=== PATIENT | male | born 1965 | race Caucasian/White ===

== ENCOUNTER 2025-02-06 17:06 | Inpatient (IN) | payer MEDICAID, SELFPAY ==
[2025-02-06] VITALS (34 sets, daily range): BP systolic 75–110; BP diastolic 43–71; PULSE 76–98; RESP 15–30; TEMP 36.4–36.6; O2SAT 92–98; BMI 26.6
--- NOTE | ~2025-02-06 | CT_ITS ---
CT chest abdomen pelvis w con Ordering provider: Denisa Grove APRN History: 59 years Male with . concerns . Comparison: None. Technique: CT chest with IV contrast. CT abdomen and pelvis CT abdomen and pelvis with IV and with or al contrast. Radiation reduction technique utilized. The dose-length product was 1596.23 mGy-cm. 100 mL Omnipaque 350 was given IV FINDINGS: CHEST: --VISUALIZED THORACIC INLET: Normal. --MEDIASTINUM: Aorta/coronary arteries: Mild atheromatous disease. Heart/other: The heart is not enlarged. Lymph nodes: No mediastinal or hilar adenopathy. --LUNGS: Dependent atelectatic changes. The No pulmonary nodules or masses. No infiltrates or effusio ns. No pneumothorax. --MUSCULOSKELETAL: Soft tissues: The superficial soft tissues are normal. Bones: Dextroscoliosis. Age appropriate degenerative changes of the spine. No suspicious bony lytic or sclerotic lesions. Old healed fracture in the right sixth and seventh ribs. ABDOMEN/PELVIS: --MUSCULOSKELETAL: Bones: Levoscoliosis. Age appropriate degenerative changes of the spine. No suspicious bony lytic or sclerotic lesions. Superficial soft tissues: Small right fat-containing inguinal hernia. Slightly The superficial soft t issues are normal. --UPPER ABDOMINAL ORGANS: Liver: Normal. Gallbladder: Status post cholecystectomy. Spleen: Normal. Stomach/duodenum: Normal. Pancreas: Normal. Adrenals: Normal. Kidneys: Bilateral renal cysts with the largest on the right herb counselor measuring 5.2 cm. --PELVIC ORGANS: The bladder is normal. No bladder stones. --BOWEL AND MESENTERY: Colon: No evidence of diverticulitis. No evidence of appendicitis. Small Bowel: Normal. No obstruction. Peritoneum/mesentery: No free air or free fluid. No mesenteric lymphadenopathy. --RETROPERITONEUM: Mild atheromatous disease of the abdominal aorta. No retroperitoneal lymphadenop athy. IMPRESSION: CHEST: 1. No acute cardiopulmonary pathology. ABDOMEN/PELVIS: 1. No evidence of appendicitis, diverticulitis or intestinal obstruction. 2. Bilateral renal cysts. Reviewed, dictated and finalized at location A.
--- NOTE | ~2025-02-06 | CT_ITS ---
EXAMINATION: CT cervical spine wo con DATE: 02/06/2025 18:50 INDICATION: neck pain TECHNIQUE: Computed tomography (CT) of the cervical spine was performed without intravenous contrast. Automated exposure control and iterative reconstruction technique were employed. The dose-length pro duct was 441.01 mGy-cm. COMPARISON: None. FINDINGS: Vertebral Body Alignment: Intact. Craniocervical and atlantoaxial alignment: Mild degenerative change. Alignment intact. Osseous structures/fracture: No evidence of a lytic or blastic process in the visualized spine. No e vidence of acute fracture. Cervical soft tissues: The paraspinal soft tissues planes are maintained. Minimal peripheral honeycom tamiko at the apices. Degenerative changes: No significant degenerative changes. IMPRESSION: No acute fracture or traumatic malalignment in the cervical spine. Reviewed, dictated and finalized at location K.
--- NOTE | ~2025-02-06 | CT_ITS ---
EXAMINATION: CT brain wo con DATE: 02/06/2025 18:48 INDICATION: dizziness, syncopal episode, emesis, lethargy. TECHNIQUE: Computed tomography (CT) of the head was performed without intravenous contrast. The mA wa s adjusted according to patient size. Iterative reconstruction technique was employed. The dose-lengt h product was 681.00 mGy-cm. COMPARISON: None. FINDINGS: No acute intracranial hemorrhage or extra-axial fluid collection. No hydrocephalus, mass, or herniation. No acute ischemic infarct. Unremarkable dural venous sinus attenuation. No acute osseous abnormality. Right maxillary retention cyst/polyp, the remaining aerated spaces are clear. Moderate atrophy and chronic white matter change. Atherosclerotic intracranial calcification. IMPRESSION: No acute intracranial process. Reviewed, dictated and finalized at location K.
--- NOTE | ~2025-02-06 | XR_ITS ---
XR chest 1V portable Ordering provider: Denisa Grove APRN History: 59 years Male with . crackles . Comparison: None. FINDINGS: MEDIASTINUM: The cardiac silhouette is moderately enlarged. Congestive julianne. LUNGS: No effusions or pneumothorax. Prominent bronchovascular markings in the upper and lower lobes with interstitial thickening. OTHER: No free air under the diaphragm. IMPRESSION: Cardiomegaly with highly suggestive cardiac decompensation and pulmonary edema. Pneumonitis is not ex cluded. Reviewed, dictated and finalized at location A. IMPRESSION: Cardiomegaly with highly suggestive cardiac decompensation and pulmonary edema. Pneumonitis is not excluded.
--- NOTE | 2025-02-06 17:13 | ECG_ITS ---
Test Date: 2025-02-06 17:17:10 Measurements Intervals [place] Rate: 96 P: 59 SC: 197 QRS: 28 QRSD: 99 T: 50 QT: 366 QTc: 463 Interpretive Statements SINUS RHYTHM WITH OCCASIONAL SUPRAVENTRICULAR PREMATURE COMPLEXES No previous ECG available for comparison Electronically Signed On 02-06-2025 23:29:52 CDT by Jose Maria Olivera D.O
--- NOTE | 2025-02-06 17:19 | PC.NURSE ---
Patient on phone with family member who states that if they say we're , we can go to rehab together
[2025-02-06] MEDS: SODIUM CHLORIDE 0.9% IV 2,000 ML 999 ML (17:29)
--- NOTE | 2025-02-06 17:31 | PC.NURSE ---
pt states that he was in the hospital a couple of days ago in [place], that they wanted to admit him to the hospital but he didn't stay
--- NOTE | 2025-02-06 17:36 | ED.DIZZY ---
HPI - Dizziness General Chief Complaint: Dizziness <Denisa Grove APRN - Last Filed: 02/07/25 03:33> Stated Complaint: dizzy, low blood pressure <Denisa Grove APRN - Last Filed: 02/07/25 03:33> Time Seen by Provider: 02/06/25 17:14 <Denisa Grove APRN - Last Filed: 02/07/25 03:33> History of Present Illness HPI Narrative: Patient is a 59-year-old male who presents to the ER with low blood pressure and dizziness. He reports he was driving earlier today and started ?feeling like crap so he pulled into a rest area and called 911. Patient reports he was in the ER a couple of days ago for the same symptoms but left AMA. He reports he has been outside some today but has tried to drink water so he is not sure if he is dehydrated. Pt denies any recent falls but reports after he felt dizzy today he believes he lost consciousness temporarily. He denies chest pain, shortness a breath, recent fevers. Pt reports he has a history of diabetes and GERD. He reports he last took 25 units of Lantus this morning. <Denisa Grove APRN - Last Filed: 02/07/25 03:33> Related Data Home Medications: Home Medications ?Medication ?Instructions ?Recorded ?Confirmed ?Last Taken ?Type dapagliflozin propaned 5 1 tablet PO BID 02/06/25 02/06/25 02/06/25 History mg-metformin ER 1,000 mg tablet, ext rel 24hr (Xigduo XR) insulin glargine 100 unit/mL (3 25 unit subcut BID 02/06/25 02/06/25 02/06/25 History mL) subcutaneous pen (Lantus Solostar U-100 Insulin) lisinopril 20 1 tablet PO DAILY 02/06/25 02/06/25 02/06/25 History mg-hydrochlorothiazide 25 mg tablet tamsulosin 0.4 mg capsule 0.4 mg PO HS 02/06/25 02/06/25 02/05/25 History <Denisa Grove APRN - Last Filed: 02/07/25 03:33> Allergies/Adverse Reactions: Allergies Allergy/AdvReac Type Severity Reaction Status Date / Time No Known Allergies Allergy Verified 02/06/25 18:25 <Denisa Grove APRN - Last Filed: 02/07/25 03:33> Review of Systems Review of Systems: All systems reviewed & are unremarkable except as noted in HPI and below <Denisa Grove APRN - Last Filed: 02/07/25 03:33> [facility] Family History Family History: Family History (Updated 02/06/25 @ 21:43 by Jenny Meza RN) Other Unknown family medical history <Denisa Grove APRN - Last Filed: 02/07/25 03:33> Social History Social History: Social History Smoking packs per day: 0.5 Smoking cigarettes per day: 10.0 Smoking status: Current every day smoker Tobacco type: cigarettes Alcohol intake: never Substance use: current Substance use type: marijuana Other substance usage details: every other day Do You Feel Safe in your Home?: Yes Lack of Transportation: No Lack of Food: Never True Current Housing: I Have Housing Concerned About Future Housing: No Difficulty Paying Gas/Electric Bills: No Difficulty Paying for Meds: No Currently Unemployed: No Education: High School Diploma/GED Difficulty w/ Childcare or Family Care: No Spiritual care concerns: No <Denisa Grove APRN - Last Filed: 02/07/25 03:33> Exam Narrative: GENERAL: Ill appearing, well-nourished, toxic, in no acute distress. HEAD: Normocephalic, atraumatic. NECK: Supple. No adenopathy, no masses. + pain at base of skull. RESPIRATORY: Airway patent, respirations nonlabored. L side crackles, R side clear to auscultation bilaterally. No rales, rhonchi, wheezing. CARDIOVASCULAR: Irregular rate and rhythm without murmurs, rubs, or gallops. Peripheral pulses 2+ and equal bilaterally. ABDOMINAL: Soft, nontender, nondistended, no hepatosplenomegaly. Normoactive BS. MUSCULOSKELETAL: Moves all extremities. Strength/ROM intact without gross deformities. SKIN: Warm, dry, normal color. No rashes. NEURO: A&O X3. Speech clear. Cranial nerves II-XII intact. No ataxic movements. PSYCHIATRIC: Appropriate mood and affect. Normal interaction. <Denisa Grove APRN - Last Filed: 02/07/25 03:33> Course CRISIS NURSE/PA Physician Supervision I agree with midlevel documentation; I performed the medical decision making component of this evaluation. <Daya Rankin MD - Last Filed: 02/06/25 21:21> Vital Signs Vital signs: Vital Signs Temperature 36.4 C 02/06/25 17:04 Pulse Rate 95 02/06/25 17:04 Respiratory Rate 19 02/06/25 17:04 Blood Pressure 75/48 L 02/06/25 17:04 Temperature 36.4 C 02/06/25 21:45 Pulse Rate 70 02/07/25 00:00 Respiratory Rate 20 02/06/25 21:45 Blood Pressure 86/67 L 02/06/25 21:51 Pulse Oximetry 96 02/06/25 21:49 Oxygen Delivery Nasal Cannula 02/06/25 21:49 Oxygen Flow Rate 1 02/06/25 21:49 <Denisa Gorve APRN - Last Filed: 02/07/25 03:33> Vital Signs Temperature 36.4 C 02/06/25 17:04 Pulse Rate 95 02/06/25 17:04 Respiratory Rate 19 02/06/25 17:04 Blood Pressure 75/48 L 02/06/25 17:04 Temperature 36.4 C 02/06/25 21:45 Pulse Rate 70 02/07/25 00:00 Respiratory Rate 20 02/06/25 21:45 Blood Pressure 86/67 L 02/06/25 21:51 Pulse Oximetry 96 02/06/25 21:49 Oxygen Delivery Nasal Cannula 02/06/25 21:49 Oxygen Flow Rate 1 02/06/25 21:49 <Daya Rankin MD - Last Filed: 02/06/25 21:21> MDM - Dizziness MDM Narrative Medical decision making narrative: Patient is a 59-year-old male who presents to the ER with low blood pressure and dizziness. He reports he was driving earlier today and started ?feeling like crap so he pulled into a rest area and called 911. Patient reports he was in the ER a couple of days ago for the same symptoms but left AMA. He reports he has been outside some today but has tried to drink water so he is not sure if he is dehydrated. Pt denies any recent falls but reports after he felt dizzy today he believes he lost consciousness temporarily. He denies chest pain, shortness of breath, recent fevers. Pt reports he has a history of diabetes and GERD. He reports he last took 25 units of Lantus this morning. Labs Ordered: CBC, CMP, ethanol, TSH, lactic acid, blood cultures, beta hydroxybutyrate, INR, PTT, UDS, urinalysis Imaging Ordered: CT brain, CT cervical spine Medications Ordered: 4 L normal saline IV bolus, Cefepime IV, Vancomycin IV Results: Pt's chest x-ray indicates Cardiomegaly with highly suggestive cardiac decompensation and pulmonary edema. Pneumonitis is not excluded. Diagnosis: Acute kidney injury, dehydration CRITICAL CARE ADDENDUM: Indication: hypotension, fluid resuscitation Time type: intermittent I provided a total of 45 minutes of critical care excluding separately billable procedures. This includes time w/ EMS, initial bedside evaluation, reviewing old records, review of testing done while under my care, discussion w/ the family, nurses, software security consultant and guiding the patient?s care while in the emergency department. Approximate time distribution: 5 minutes ? Initial evaluation, d/w involved parties, attempting to gather old records. 10 minutes ? Documenting medical record 10 minutes ? Review of results (EKGs, labs, imaging) 10 minutes ? Serial repeat bedside evaluation 10 minutes ? Discussing case with multiple providers Please see main chart for details. Excludes separately billable procedures. Patient Education/Shared MDM: Results of lab work and imaging shared with patient. His blood pressure is more stable following 4 L IV normal saline. It was advised patient be admitted to the hospital further evaluation and treatment. Patient verbalizes understanding and is in agreement with plan. 1930- Spoke with Dr. Clifton, the hospitalist, who was in agreement with plan for admission. He will be admitted to the med/surg floor on telemetry. <Denisa Grove APRN - Last Filed: 02/07/25 03:33> Differential Diagnosis Differential diagnosis: Likely benign paroxysmal positional vertigo, orthostatic hypotension and other (Dehydration, sepsis, pneumonia,) <Denisa Grove APRN - Last Filed: 02/07/25 03:33> Lab Data Attestation: I reviewed the patient's lab results. <Denisa Grove, GLOBAL TRANSPORTATION MANAGER - Last Filed: 02/07/25 03:33> Result diagrams: 02/06/25 17:42 02/06/25 17:41 <Denisa Grove, GLOBAL TRANSPORTATION MANAGER - Last Filed: 02/07/25 03:33> Labs: Lab Results 02/06/25 02/06/25 02/06/25 Range/Units 17:39 17:41 17:42 WBC 7.8 (4.5-10.0) K/mm3 RBC 5.26 (4.6-6.20) M/mm3 Hgb 15.2 (14.0-18.0) g/dL Hct 46.2 (42.0-52.0) % MCV 87.8 (80-100) fl MCH 28.9 (26-34) pg MCHC 32.9 (32-36) g/dl RDW 14.5 (11.5-14.5) % Plt Count 218 (150-375) k/mm3 MPV 9.8 (7.4-10.4) fl Immature Gran % (Auto) 0.4 (0-0.5) % Neut % (Auto) 64.5 (45.5-73.1) % Lymph % (Auto) 22.2 (18.3-44.2) % [place] % (Auto) 11.5 H (2.6-8.5) % Eos % (Auto) 0.8 (0-4.4) % Baso % (Auto) 0.6 (0.2-1.2) % Lymph # (Auto) 1.73 (0.9-3.2) K/mm3 [place] # (Auto) 0.9 H (0.1-0.6) K/mm3 Eos # (Auto) 0.1 (0-0.3) K/mm3 Baso # (Auto) 0.1 (0.0-0.1) K/mm3 Abs Immat Gran (auto) 0.03 (0.00-0.031) K/mm3 Absolute Neuts (auto) 5.0 (1.3-6.7) K/mm3 Absolute Nucleated RBC 0.000 (0.0-0.012) K/mm3 Nucleated RBC % 0.0 (0.0-0.2) % PT 14.5 (11.1-14.7) Seconds INR 1.1 APTT 29.8 (22.3-36.8) Seconds Sodium 135 L (137-145) mmol/L Potassium 3.7 (3.4-5.0) mmol/L Chloride 103 (98-107) mmol/L Carbon Dioxide 21 L (22-30) mmol/L Anion Gap 11 (4-12) mmol/L BUN 28 H (9-20) mg/dL Creatinine 2.16 H (0.7-1.3) mg/dL Estim Creat Clear Calc 45 ml/min Estimated GFR 32 L (59 - ) Glucose 125 H (65-110) mg/dL POC Capillary Glucose 136 H (65-105) mg/dl Lactic Acid 2.0 (0.7-2.0) mmol/L Calcium 8.8 (8.4-10.2) mg/dL Total Bilirubin 1.2 (0.2-1.3) mg/dL AST 157 H (17-59) U/L ALT 219 H (6-50) U/L Alkaline Phosphatase 112 (38-126) U/L Total Creatine Kinase 309 H (55-170) U/L C-Reactive Protein < 0.5 (<1.0) mg/dL Total Protein 7.4 (6.3-8.2) g/dL Albumin 4.2 (3.5-5.1) g/dL Beta-Hydroxybutyrate/Acetoacetate 0.27 (0.02-0.27) mmol/L TSH (Reflex) 0.579 (0.465-4.68) uIU/mL Urine Color (Yellow) Urine Appearance (Clear) Urine pH (5.0-9.0) Ur Specific Maxwell (1.001-1.035) Urine Protein (Negative) mg/dL Urine Glucose (UA) (Negative) mg/dL Urine Ketones (Negative) mg/dL Ur Blood (Man) (Negative) Urine Nitrate (Negative) Urine Bilirubin (Negative) Urine Urobilinogen (<2.0) mg/dL Leukocyte Esterase Rfl (Negative) MANJULA/UL Urine RBC (0-2) /hpf Urine WBC (0-3) /hpf Ur Squamous Epith Cells (Few) /hpf Urine Bacteria /hpf Urine Casts Hyaline Casts (None) /lpf Urine Opiates Screen (Negative) Urine Methadone Screen (Negative) Ur Barbiturates Screen (Negative) Ur Phencyclidine Scrn (Negative) Ur Amphetamine Screen (Negative) U Benzodiazepines Scrn (Negative) Urine Cocaine Screen (Negative) U Cannabinoids Screen (Negative) Ethyl Alcohol < 10 (<10) mg/dL 02/06/25 Range/Units 18:27 WBC (4.5-10.0) K/mm3 RBC (4.6-6.20) M/mm3 Hgb (14.0-18.0) g/dL Hct (42.0-52.0) % MCV (80-100) fl MCH (26-34) pg MCHC (32-36) g/dl RDW (11.5-14.5) % Plt Count (150-375) k/mm3 MPV (7.4-10.4) fl Immature Gran % (Auto) (0-0.5) % Neut % (Auto) (45.5-73.1) % Lymph % (Auto) (18.3-44.2) % [place] % (Auto) (2.6-8.5) % Eos % (Auto) (0-4.4) % Baso % (Auto) (0.2-1.2) % Lymph # (Auto) (0.9-3.2) K/mm3 [place] # (Auto) (0.1-0.6) K/mm3 Eos # (Auto) (0-0.3) K/mm3 Baso # (Auto) (0.0-0.1) K/mm3 Abs Immat Gran (auto) (0.00-0.031) K/mm3 Absolute Neuts (auto) (1.3-6.7) K/mm3 Absolute Nucleated RBC (0.0-0.012) K/mm3 Nucleated RBC % (0.0-0.2) % PT (11.1-14.7) Seconds INR APTT (22.3-36.8) Seconds Sodium (137-145) mmol/L Potassium (3.4-5.0) mmol/L Chloride (98-107) mmol/L Carbon Dioxide (22-30) mmol/L Anion Gap (4-12) mmol/L BUN (9-20) mg/dL Creatinine (0.7-1.3) mg/dL Estim Creat Clear Calc ml/min Estimated GFR (59 - ) Glucose (65-110) mg/dL POC Capillary Glucose (65-105) mg/dl Lactic Acid (0.7-2.0) mmol/L Calcium (8.4-10.2) mg/dL Total Bilirubin (0.2-1.3) mg/dL AST (17-59) U/L ALT (6-50) U/L Alkaline Phosphatase (38-126) U/L Total Creatine Kinase (55-170) U/L C-Reactive Protein (<1.0) mg/dL Total Protein (6.3-8.2) g/dL Albumin (3.5-5.1) g/dL Beta-Hydroxybutyrate/Acetoacetate (0.02-0.27) mmol/L TSH (Reflex) (0.465-4.68) uIU/mL Urine Color Yellow (Yellow) Urine Appearance Clear (Clear) Urine pH 6.0 (5.0-9.0) Ur Specific [place] 1.014 (1.001-1.035) Urine Protein Trace (Negative) mg/dL Urine Glucose (UA) 2+ H (Negative) mg/dL Urine Ketones Negative (Negative) mg/dL Ur Blood (Man) Negative (Negative) Urine Nitrate Negative (Negative) Urine Bilirubin Negative (Negative) Urine Urobilinogen 1.0 (<2.0) mg/dL Leukocyte Esterase Rfl Negative (Negative) MANJULA/UL Urine RBC 0-2 (0-2) /hpf Urine WBC 0-5 (0-3) /hpf Ur Squamous Epith Cells None seen (Few) /hpf Urine Bacteria None seen /hpf Urine Casts >20 Hyaline Casts Present (None) /lpf Urine Opiates Screen Negative (Negative) Urine Methadone Screen Negative (Negative) Ur Barbiturates Screen Negative (Negative) Ur Phencyclidine Scrn Negative (Negative) Ur Amphetamine Screen Positive A (Negative) U Benzodiazepines Scrn Negative (Negative) Urine Cocaine Screen Negative (Negative) U Cannabinoids Screen Positive A (Negative) Ethyl Alcohol (<10) mg/dL <Denisa Grove, GLOBAL TRANSPORTATION MANAGER - Last Filed: 02/07/25 03:33> Lab Results 02/06/25 02/06/2525 Range/Units 17:39 17:41 17:42 WBC 7.8 (4.5-10.0) K/mm3 RBC 5.26 (4.6-6.20) M/mm3 Hgb 15.2 (14.0-18.0) g/dL Hct 46.2 (42.0-52.0) % MCV 87.8 (80-100) fl MCH 28.9 (26-34) pg MCHC 32.9 (32-36) g/dl RDW 14.5 (11.5-14.5) % Plt Count 218 (150-375) k/mm3 MPV 9.8 (7.4-10.4) fl Immature Gran % (Auto) 0.4 (0-0.5) % Neut % (Auto) 64.5 (45.5-73.1) % Lymph % (Auto) 22.2 (18.3-44.2) % [place] % (Auto) 11.5 H (2.6-8.5) % Eos % (Auto) 0.8 (0-4.4) % Baso % (Auto) 0.6 (0.2-1.2) % Lymph # (Auto) 1.73 (0.9-3.2) K/mm3 [place] # (Auto) 0.9 H (0.1-0.6) K/mm3 Eos # (Auto) 0.1 (0-0.3) K/mm3 Baso # (Auto) 0.1 (0.0-0.1) K/mm3 Abs Immat Gran (auto) 0.03 (0.00-0.031) K/mm3 Absolute Neuts (auto) 5.0 (1.3-6.7) K/mm3 Absolute Nucleated RBC 0.000 (0.0-0.012) K/mm3 Nucleated RBC % 0.0 (0.0-0.2) % PT 14.5 (11.1-14.7) Seconds INR 1.1 APTT 29.8 (22.3-36.8) Seconds Sodium 135 L (137-145) mmol/L Potassium 3.7 (3.4-5.0) mmol/L Chloride 103 (98-107) mmol/L Carbon Dioxide 21 L (22-30) mmol/L Anion Gap 11 (4-12) mmol/L BUN 28 H (9-20) mg/dL Creatinine 2.16 H (0.7-1.3) mg/dL Estim Creat Clear Calc 45 ml/min Estimated GFR 32 L (59 - ) Glucose 125 H (65-110) mg/dL POC Capillary Glucose 136 H (65-105) mg/dl Lactic Acid 2.0 (0.7-2.0) mmol/L Calcium 8.8 (8.4-10.2) mg/dL Total Bilirubin 1.2 (0.2-1.3) mg/dL AST 157 H (17-59) U/L ALT 219 H (6-50) U/L Alkaline Phosphatase 112 (38-126) U/L Total Creatine Kinase 309 H (55-170) U/L C-Reactive Protein < 0.5 (<1.0) mg/dL Total Protein 7.4 (6.3-8.2) g/dL Albumin 4.2 (3.5-5.1) g/dL Beta-Hydroxybutyrate/Acetoacetate 0.27 (0.02-0.27) mmol/L TSH (Reflex) 0.579 (0.465-4.68) uIU/mL Urine Color (Yellow) Urine Appearance (Clear) Urine pH (5.0-9.0) Ur Specific [place] (1.001-1.035) Urine Protein (Negative) mg/dL Urine Glucose (UA) (Negative) mg/dL Urine Ketones (Negative) mg/dL Ur Blood (Man) (Negative) Urine Nitrate (Negative) Urine Bilirubin (Negative) Urine Urobilinogen (<2.0) mg/dL Leukocyte Esterase Rfl (Negative) MANJULA/UL Urine RBC (0-2) /hpf Urine WBC (0-3) /hpf Ur Squamous Epith Cells (Few) /hpf Urine Bacteria /hpf Urine Casts Hyaline Casts (None) /lpf Urine Opiates Screen (Negative) Urine Methadone Screen (Negative) Ur Barbiturates Screen (Negative) Ur Phencyclidine Scrn (Negative) Ur Amphetamine Screen (Negative) U Benzodiazepines Scrn (Negative) Urine Cocaine Screen (Negative) U Cannabinoids Screen (Negative) Ethyl Alcohol < 10 (<10) mg/dL 02/06/25 Range/Units 18:27 WBC (4.5-10.0) K/mm3 RBC (4.6-6.20) M/mm3 Hgb (14.0-18.0) g/dL Hct (42.0-52.0) % MCV (80-100) fl MCH (26-34) pg MCHC (32-36) g/dl RDW (11.5-14.5) % Plt Count (150-375) k/mm3 MPV (7.4-10.4) fl Immature Gran % (Auto) (0-0.5) % Neut % (Auto) (45.5-73.1) % Lymph % (Auto) (18.3-44.2) % [place] % (Auto) (2.6-8.5) % Eos % (Auto) (0-4.4) % Baso % (Auto) (0.2-1.2) % Lymph # (Auto) (0.9-3.2) K/mm3 [place] # (Auto) (0.1-0.6) K/mm3 Eos # (Auto) (0-0.3) K/mm3 Baso # (Auto) (0.0-0.1) K/mm3 Abs Immat Gran (auto) (0.00-0.031) K/mm3 Absolute Neuts (auto) (1.3-6.7) K/mm3 Absolute Nucleated RBC (0.0-0.012) K/mm3 Nucleated RBC % (0.0-0.2) % PT (11.1-14.7) Seconds INR APTT (22.3-36.8) Seconds Sodium (137-145) mmol/L Potassium (3.4-5.0) mmol/L Chloride (98-107) mmol/L Carbon Dioxide (22-30) mmol/L Anion Gap (4-12) mmol/L BUN (9-20) mg/dL Creatinine (0.7-1.3) mg/dL Estim Creat Clear Calc ml/min Estimated GFR (59 - ) Glucose (65-110) mg/dL POC Capillary Glucose (65-105) mg/dl Lactic Acid (0.7-2.0) mmol/L Calcium (8.4-10.2) mg/dL Total Bilirubin (0.2-1.3) mg/dL AST (17-59) U/L ALT (6-50) U/L Alkaline Phosphatase (38-126) U/L Total Creatine Kinase (55-170) U/L C-Reactive Protein (<1.0) mg/dL Total Protein (6.3-8.2) g/dL Albumin (3.5-5.1) g/dL Beta-Hydroxybutyrate/Acetoacetate (0.02-0.27) mmol/L TSH (Reflex) (0.465-4.68) uIU/mL Urine Color Yellow (Yellow) Urine Appearance Clear (Clear) Urine pH 6.0 (5.0-9.0) Ur Specific Maxwell 1.014 (1.001-1.035) Urine Protein Trace (Negative) mg/dL Urine Glucose (UA) 2+ H (Negative) mg/dL Urine Ketones Negative (Negative) mg/dL Ur Blood (Man) Negative (Negative) Urine Nitrate Negative (Negative) Urine Bilirubin Negative (Negative) Urine Urobilinogen 1.0 (<2.0) mg/dL Leukocyte Esterase Rfl Negative (Negative) MANJULA/UL Urine RBC 0-2 (0-2) /hpf Urine WBC 0-5 (0-3) /hpf Ur Squamous Epith Cells None seen (Few) /hpf Urine Bacteria None seen /hpf Urine Casts >20 Hyaline Casts Present (None) /lpf Urine Opiates Screen Negative (Negative) Urine Methadone Screen Negative (Negative) Ur Barbiturates Screen Negative (Negative) Ur Phencyclidine Scrn Negative (Negative) Ur Amphetamine Screen Positive A (Negative) U Benzodiazepines Scrn Negative (Negative) Urine Cocaine Screen Negative (Negative) U Cannabinoids Screen Positive A (Negative) Ethyl Alcohol (<10) mg/dL <Daya Rankin MD - Last Filed: 02/06/25 21:21> Critical Care Time Critical Care Time Critical Care Time: Yes <Daya Rankin MD - Last Filed: 02/06/25 21:21> Total Critical Care Time: 45 <Denisa Grove APRN - Last Filed: 02/07/25 03:33> 31 <Daya Rankin MD - Last Filed: 02/06/25 21:21> Discharge Plan Discharge Clinical Impression: RAUL (acute kidney injury), Abnormal LFTs, Hypotension <Denisa Grove APRN - Last Filed: 02/07/25 03:33> Patient Disposition: Still a Patient <Denisa Grove APRN - Last Filed: 02/07/25 03:33> Condition: Serious <Denisa Grove APRN - Last Filed: 02/07/25 03:33>
--- NOTE | 2025-02-06 17:49 | ECG_ITS ---
Test Date: 2025-02-06 17:53:48 Measurements Intervals [place] Rate: 86 P: -72 TN: 137 QRS: 23 QRSD: 105 T: 19 QT: 407 QTc: 489 Interpretive Statements SINUS RHYTHM WITH SUPRAVENTRICULAR PREMATURE COMPLEXES Electronically Signed On 02-06-2025 23:30:52 CDT by Jose Maria Olivera D.O
[2025-02-06 17:50] LABS: Hematocrit 46.2 % (42.0-52.0); Hemoglobin 15.2 g/dL (14.0-18.0); Immature Granulocyte Percent A 0.4 % (0-0.5); Lymphocytes Absolute Auto 1.73 K/mm3 (0.9-3.2); Mean Corpuscular HGB Conc 32.9 g/dl (32-36); Mean Corpuscular Hemoglobin 28.9 pg (26-34); Mean Corpuscular Volume 87.8 fl (80-100); Nucleated Red Blood Cells Absolute Auto 0.000 K/mm3 (0.0-0.012); Nucleated Red Blood Cells Perc 0.0 % (0.0-0.2); Platelet Count Result 218 k/mm3 (150-375); Red Blood Count 5.26 M/mm3 (4.6-6.20); White Blood Count 7.8 K/mm3 (4.5-10.0)
[2025-02-06] MEDS: SODIUM CHLORIDE 0.9% IV 1,000 ML 999 ML IV CONT (18:03)
[2025-02-06 18:04] LABS: Alanine Aminotransferase 219 U/L (6-50); Albumin Level 4.2 g/dL (3.5-5.1); Alkaline Phosphatase 112 U/L (38-126); Anion Gap 11 mmol/L (4-12); Aspartate Amino Transferase 157 U/L (17-59); Bilirubin,Total 1.2 mg/dL (0.2-1.3); Blood Urea Nitrogen 28 mg/dL (9-20); Calcium 8.8 mg/dL (8.4-10.2); Carbon Dioxide 21 mmol/L (22-30); Chloride 103 mmol/L (98-107); Estimated CRCL calculation 45 ml/min; Estimated Glomerular Filt Rate 32; Glucose 125 mg/dL (65-110); Potassium 3.7 mmol/L (3.4-5.0); Sodium 135 mmol/L (137-145); Total Protein 7.4 g/dL (6.3-8.2)
--- NOTE | 2025-02-06 18:05 | PC.NURSE ---
patient had an episode of desturation, spo2 dipped to 68% on room air with a good pleth, patient rebounded to 97% himself. nasal cannula and NRB facemask placed at bedside at this time
[2025-02-06 18:11] LABS: Beta-Hydroxybutyrate/Acetoace. 0.27 mmol/L (0.02-0.27)
[2025-02-06 18:14] LABS: CRP < 0.5 mg/dL (<1.0)
[2025-02-06 18:18] LABS: INR 1.1; Prothrombin Time 14.5 Seconds (11.1-14.7)
[2025-02-06 18:19] LABS: Partial Thromboplastin Time 29.8 Seconds (22.3-36.8)
[2025-02-06 18:31] LABS: Creatine Kinase 309 U/L (55-170)
[2025-02-06] MEDS: CEFEPIME 2 GM in SODIUM CHLORIDE 0.9% IV 50 ML 100 ML IVPB (18:37)
[2025-02-06 18:44] LABS: Thyroid Stimulating Hormone Reflex 0.579 uIU/mL (0.465-4.68)
[2025-02-06 19:03] LABS: Add Urine Microscopic? YES; Appearance Urine Clear (Clear); Glucose Urine UA 2+ mg/dL (Negative); Leukocyte Esterase Ur Negative LEU/UL (Negative); Nitrate Urine Negative (Negative); Non Pathogenic Casts >20; Specific Grav Ur 1.014 (1.001-1.035)
--- OUTSIDE RECORDS SUMMARY | 2025-02-06 19:07 | XMS_ITS | Patient Health Record ---
Author Organization [facility] Address [address] [place] [address] Care Team Providers Care Child Care Leader Name Role Phone Tavares Martel Unavailable Unavailable Reason For Referral No Information Plan Of Treatment No Information Insurance Providers Payer Name Payer Address Payer Phone Subscriber Number Group Number Insured Name Patient Relationship to Insured Coverage Start Date Coverage End Date [facility] [address] [address] [place] [address] [phone] [id number] GISELLE HODGE Self - patient is the insured
--- OUTSIDE RECORDS SUMMARY | 2025-02-06 19:07 | XMS_ITS | Clinical Summary ---
Author Organization [facility] and Pending sale to [facility] Address [address] [address] Care Team Providers Care Special Loan Officer Name Role Phone Erika Ahumada NP Primary Care Provider [phone] Allergies Active Allergy Reactions Criticality Noted Date Comments Ketorolac ABDOMINAL CRAMPING Medium 06/03/2024 Medications * This document contains information received from the source organization and may not represent a complete record from that organization. blood sugar diagnostic strip (TRUE METRIX GLUCOSE TEST STRIP) for type 2 diabetes mellitus. TEST BLOOD SUGARS 1 TIME A DAY 100 strip 4 05/13/20 23 Active Blood-Glucose Meter for testing of blood glucose. use as directed 1 each 04/03/20 24 Active blood sugar diagnostic strip Take 1 strip as instructed daily for type 2 diabetes mellitus, glucose monitoring. 100 strip 5 04/03/20 24 Active lancets Take 1 each as instructed daily for type 2 diabetes mellitus, glucose monitoring. 100 each 5 04/03/20 24 Active sildenafiL (VIAGRA) 50 mg tablet Take 1 tablet by mouth once as needed for Erectile Dysfunction. Take one hour prior to intercourse. 30 tablet 2 04/03/20 24 Active lisinopriL-hyd roCHLOROthiazi de (ZESTORETIC) 20-25 mg per tablet Take 1 tablet by mouth daily for hypertension. 90 tablet 4 10/12/19 25 Active omeprazole (PRILOSEC) 40 mg capsule Take 1 capsule by mouth daily for gastroesophageal reflux disease. 90 capsule 11/15/19 25 Active insulin syringe 0.3 mL 31 gauge x 5/16 syringe Use to inject insulin just under the skin at bedtime 09/08/19 25 Active tamsulosin (FLOMAX) 0.4 mg 24 hr capsule Take 1 capsule by mouth daily for benign prostatic hyperplasia with lower urinary tract sx. 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 Apply 2 times daily to affected areas 45 g 3 11/30/19 25 Active colchicine (COLCRYS) 0.6 mg tablet for leukocytoclasic vasculitis. Take one pill daily for 1 week. Then increase to one pill twice a day for 1 week. Then increase to one pill three times a day thereafter. 90 tablet 3 11/30/19 25 Active insulin glargine (LANTUS SOLOSTAR) 100 unit/mL (3 mL) pen injection Inject 25 Units into the skin 2 times daily for type 2 diabetes mellitus. 15 mL 4 12/08/19 25 Active insulin lispro (HUMALOG KWIKPEN) 100 unit/mL pen injection for type 2 diabetes mellitus. TAKE 10-12 UNITS THREE TIMES DAILY BEFORE MEALS 15 mL 4 12/08/19 25 Active dapaglifloz propaned-metfo rmin (XIGDUO XR) 5-1,000 mg TBph Take 1 tablet by mouth 2 times daily for type 2 diabetes mellitus. 180 tablet 4 12/08/19 25 Active amoxicillin (AMOXIL) 500 mg capsule Take 1 capsule by mouth every 8 hours for 7 days for dental infection. Take until all capsules are gone. 21 capsule 01/23/20 25 025 Active Problems Problem Noted Date Diagnosed Date Chronic hepatitis C without hepatic coma 025 Assessment & Plan (11/28/2024 4:02 PM MDT): Pt here for initial consult on HCV treatment. First told had HCV 15 years ago. Believes it was from a tattoo that was done in about 1988, non sterile. Denies blood transfusions of IVDU. PMHx: DM, HTN Meds: see list, no supplemets or herbals Fhx: no liver cancer Social hx: 1/2 PPD smoker for 30 years. No alcohol drinker. Hx cocaine use years ago, 30 years ago last used. Has stable housing. 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 Has symptoms of dizziness. Gets nauseous at times, especially in AM. Feels stomach is getting bigger. Has rash on extremities and chest. Photos in chart. No swelling in legs. No jaundice or icterus. No changes in urination color or BM color. Last VL in 09/2024 was 41M copies. Plan to obtain additional labs as well as abdominal US. Once results are back, can consider starting SHALOM. Will need to check for DDIs since pt is on many other medications. Assessment & Plan (11/26/2024 12:12 PM MDT): No cirrhosis, decompensation on exam or CT. Rescheduled with Dr. De Guzman later this week Pleural effusion on right 08/22/2024 Hyperlipidemia 04/03/2024 Overview (04/03/2024): Not taking a statin Lab Results Component Value Date Cholesterol 169 07/01/2023 Non HDL 122 07/01/2023 Triglycerides 122 07/01/2023 LDL 100 (H) 07/01/2023 The 10-year ASCVD risk score (Chandler NICE, et al., 2019) is: 26.4% (04/03/24) Plan Discussed statin/discussed CVD risk Will recheck lipid panel Assessment & Plan (04/03/2024 7:41 AM MDT): Not taking a statin Lab Results Component Value Date Cholesterol 169 07/01/2023 Non HDL 122 07/01/2023 Triglycerides 122 07/01/2023 LDL 100 (H) 07/01/2023 The 10-year ASCVD risk score (Chandler NICE, et al., 2019) is: 26.4% (04/03/24) Plan Discussed statin/discussed CVD risk Will recheck lipid panel Other male erectile dysfunction 07/01/2023 Assessment & Plan (07/22/2023 9:21 AM MST): Normal testosterone Trial sildenafil Side effects, risks and benefits reviewed Assessment & Plan (07/01/2023 2:05 PM MST): Testosterone pending. Discussed treatment pending results Hypertension, essential 05/13/2023 Overview (10/11/2024): Medication: Lisinopril 10 mg Low salt diet BP goal < 130/80 BP Readings: BP Readings from Last 3 Encounters: 08/22/24 : 137/88 07/14/24 : 165/102 07/04/24 : 132/100 04/03/24 : 150/100 03/17/24 : 145/101 07/11/23 : 140/94 Plan stop Lisinopril to 20 mg Start Lisinopril-HCTZ 20-12.5 mg daily Reviewed low salt diet, healthy weight, physical activity and smoking cessation Follow up in 1 month Assessment & Plan (10/11/2024 10:56 AM MDT): Uncontrolled here and on home checks, will increase HCZT to 25, f/u next month. If still elevated, consdier 3rd agent or adding add'l 20mg lisinopril. Assessment & Plan (08/22/2024 9:35 AM RUST): Medication: Lisinopril 10 mg Low salt diet BP goal < 130/80 BP Readings: BP Readings from Last 3 Encounters: 08/22/24 : 137/88 07/14/24 : 165/102 07/04/24 : 132/100 04/03/24 : 150/100 03/17/24 : 145/101 07/11/23 : 140/94 Plan stop Lisinopril to 20 mg Start Lisinopril-HCTZ 20-12.5 mg daily Reviewed low salt diet, healthy weight, physical activity and smoking cessation Follow up in 1 month Assessment & Plan (04/03/2024 7:43 AM MDT): Medication: Lisinopril 10 mg Low salt diet BP goal < 130/80 BP Readings: 04/03/24 : 150/100 Repeat 03/17/24 : 145/101 07/11/23 : 140/94 Plan Increase Lisinopril to 20 mg Reviewed importance of BP control Reviewed low salt diet, healthy weight, physical activity and smoking cessation Monitoring labs orders BP monitoring Kit ordered Handouts provided Follow up in 1 month Assessment & Plan (07/01/2023 2:07 PM MST): Well controlled, no change Assessment & Plan (05/13/2023 8:43 AM MDT): Elevated today due to lack of meds. Restart and maritza at fup Return for fasting labs Benign prostatic hyperplasia with lower urinary tract symptoms 05/13/2023 Assessment & Plan (11/26/2024 12:16 PM MDT): Refill tamsulosin Assessment & Plan (05/13/2023 8:43 AM MDT): Stable sx. PSA ordered with labs Gastroesophageal reflux disease without esophagi tis 05/13/2023 Assessment & Plan (05/13/2023 8:43 AM MDT): Stable on omeprazole, refilled Uncontrolled type 2 diabetes mellitus with hyperglycemia, with long-term current use of insulin 05/13/2023 Assessment & Plan (01/09/2025 11:55 AM MDT): Assessment & Plan (12/07/2024 1:28 PM MDT): Manny Jerez was seen today along with the Bottomer Operator for follow-up of diabetes. I have reviewed and agree with the treatment plan as outlined in their note. Necessary refills were provided. There were no vitals filed for this visit. Lab Results Component Value Date A1C Glycohemoglobin 9.2 (H) 04/03/2024 POCT Hemoglobin A1C 9.5 (A) 11/26/2024 POCT Hemoglobin A1C 9.5 (A) 08/22/2024 POCT Hemoglobin A1C 6.7 (A) 07/01/2023 Assessment & Plan (11/26/2024 12:11 PM MDT): A1C improving since getting CGM. Improved from 11.6->9.5 in last few months. Has not been taking metformin due to concern of side effects. Have changed him to xigduo 11/999 for now, and can consider increasing dose an an upcoming appt. Has referral to [facility], need to confirm he has a visit. Continue MARGA, plan to discuss statin further once acute liver issues are better controlled. Assessment & Plan (11/20/2024 2:12 PM MDT): Last A1c 11.6 at OSH 09/07, will repeat at next visit. Starting CGM today to improve insulin titration and response. F/u in 2wks with CDE. Assessment & Plan (10/31/2024 1:24 PM MDT): Patient with uncontrolled type 2 diabetes presents originally for perinatal educator appointment however was brought to walk in clinic due to severity of dizziness and other concerns. BG 335 on exam; states at home it has been in 300s States he took his insulin as prescribed today -humalog 12 u -lantus 22 u Patient will need a new appointment with patient educator for follow up Assessment & Plan (10/26/2024 11:23 AM MDT): Manny Jerez was seen today along with the Bottomer Operator for follow-up of diabetes. I have reviewed and agree with the treatment plan as outlined in their note. Necessary refills were provided. There were no vitals filed for this visit. Lab Results Component Value Date A1C Glycohemoglobin 9.2 (H) 04/03/2024 POCT Hemoglobin A1C 9.5 (A) 08/22/2024 POCT Hemoglobin A1C 6.7 (A) 07/01/2023 POCT Hemoglobin A1C 6.3 (A) 05/13/2023 Coverage for personal CGM: This patient has a diagnosis of Type II diabetes Patients self-injects insulin 5 times per day. I am prescribing a CGM system. Patient was trained by the [facility] and [employer] ([employer]) in clinic. I verify that the patient or caregiver can hear and view the CGM alerts and respond accordingly. I evaluated the patient's diabetes control and determined medical necessity for a personal CGM. This patient is aware that continued coverage of supplies requires a visit with me/the treating provider at least every 6 months. Assessment & Plan (10/11/2024 10:57 AM MDT): Has been mixing up insulin types. Will change to lantus 18 BID, lispro 15 TID On metformin 1000 BID Meds refilled, CGM ordered, plan to f/u with CDE in 3-4 wks Due for eye exam, last 07/2023, pt to schedule. Assessment & Plan (08/22/2024 9:34 AM MST): Medication: Metformin 500 mg BID Lab Results Component Value Date A1C Glycohemoglobin 9.2 (H) 04/03/2024 POCT Hemoglobin A1C 9.5 (A) 08/22/2024 POCT Hemoglobin A1C 6.7 (A) 07/01/2023 POCT Hemoglobin A1C 6.3 (A) 05/13/2023 POCT Hemoglobin A1C 6.4 (A) 09/21/2022 Plan Increase Metformin to 1000 mg BID- Encouraged to continue to work on diet and physical activity Follow up in 1 month- discussed possibility of adding a second medication Assessment & Plan (04/03/2024 7:43 AM MDT): Medication: Metformin 500 mg BID POCT Hemoglobin A1C 6.7 (A) 07/01/2023 POCT Hemoglobin A1C 6.3 (A) 05/13/2023 POCT Hemoglobin A1C 6.4 (A) 09/21/2022 Plan Encouraged to continue to work on diet and physical activity New glucometer orders placed Monitoring abs ordered Follow up in 1 month Assessment & Plan (07/22/2023 9:20 AM MST): Assessment & Plan (07/01/2023 2:07 PM MST): Well controlled, no change Assessment & Plan (05/13/2023 8:45 AM MDT): Lesion of skin of nose 05/13/2023 Assessment & Plan (07/01/2023 2:04 PM MST): Pt called derm while in office and scheduled appt, importance reviewed Assessment & Plan (05/13/2023 8:45 AM MDT): Derm referral sent Lung nodule 11/27/2020 Tobacco abuse 11/27/2020 Closed fracture of multiple ribs of right side with routine healing 11/26/2020 Pneumonia 11/26/2020 IV drug abuse 11/05/2017 Postoperative intra-abdominal abscess 11/04/2017 Resolved Problems Problem Noted Date Diagnosed Date Resolved Date Healthcare maintenance 05/13/202304/03 Assessment & Plan (07/01/2023 2:05 PM RUST): Discussed vaccines due, pt declining td and pneumo but agrees to do at fup Also reviewed colonoscopy due, pt declining referral today Assessment & Plan (05/13/2023 8:45 AM MDT): Reviewed vaccines due, pt declining. Agrees to discuss again at fup Encounters Date Type Department Care Team Description 01/22/2025 1:45 PM MDT Office Visit [facility] [address] [place] [address] [place] 01/09/2025 11:00 AM MDT Office Visit [facility] [address], [place] [address] Maria Vazquez MD Carsky, Cecelia Hypotension, unspecified hypotension type (Primary Dx); Uncontrolled type 2 diabetes mellitus with hyperglycemia, with long-term current use of insulin (HC CODE) 12/07/2024 1:00 PM MDT Office Visit [facility] [address], [place] [address] Kori Hoffman, [facility] Mee Arango Uncontrolled type 2 diabetes mellitus with hyperglycemia, with long-term current use of insulin (HC CODE) (Primary Dx) 12/04/2024 Results Follow-Up [facility] [address] [place] [address] Edgard De Guzman MD 11/29/2024 Orders Only [facility] [address] [place] [address] Edgard De Guzman MD Leukocytoclastic vasculitis (HC CODE) (Primary Dx) 11/28/2024 3:00 PM MDT Office Visit [facility] [address] [address] Edgard De Guzman MD Chronic hepatitis C without hepatic coma (HC CODE) (Primary Dx) 11/28/2024 E-Consult [facility] [address] [facility] [address] [place] [id number] Татьяна Bradford MD Leukocytoclastic vasculitis (HC CODE) (Primary Dx) 11/26/2024 11:40 AM MDT Office Visit [facility] [address] [place] [address] Aleja Pedraza MD Uncontrolled type 2 diabetes mellitus with hyperglycemia, with long-term current use of insulin (HC CODE) (Primary Dx); Chronic hepatitis C without hepatic coma (HC CODE); Skin lesion; Benign prostatic hyperplasia with lower urinary tract symptoms, symptom details unspecified 11/26/2024 Refill [facility] [address] [place] [address] Erika Ahumada NP Benign prostatic hyperplasia with lower urinary tract symptoms, symptom details unspecified 11/20/2024 1:30 PM MDT Office Visit [facility] [address], [place] [address] Maria Vazquez MD Carsky, Cecelia Uncontrolled type 2 diabetes mellitus with hyperglycemia, with long-term current use of insulin (HC CODE) (Primary Dx) 11/12/2024 Refill [facility] [employer] [address] [place] [address] Wallace Meyers, RN Gastroesophageal reflux disease without esophagitis from Last 3 Months Immunizations Immunization Administration Dates Next Due Hep A, adult 12/29/2022,09/11/2019 Hep B, adult 09/28/2024(Deferred: Clinic out of Immunization),12/29/2022,09/11/2019 Tdap 09/28/2024(Deferred: Clinic out of Immunization) Family History Medical History Relation Comments Suicide Cousin Alcohol abuse Father Alcohol abuse Paternal Grandfather Relation Status Comments Cousin Other Father Paternal Grandfather Social History Tobacco Use Types Packs/Day Years Used Date Smoking Tobacco: Every Day Cigarettes Passive Smoke Exposure: Never Smokeless Tobacco: Never Tobacco Cessation:Ready to Q uit: Not Asked; Counseling Given: Not Answered Comments:10 cigs a day Alcohol Use Standard Drinks/Week Comments Not Currently 0 (1 standard drink = 0.6 oz pur e alcohol) Humiliation, Afraid, Rape, and Kick questionnair e Answer Date Recorded Within the last year, have y ou been afraid of your partner or ex-partner? No 04/06/2024 Within the last year, have y ou been humiliated or emotionally abused in other ways by your partner or ex-partner? No Within the last year, have y ou been kicked, hit, slapped, or otherwise physically hurt by your partner or ex-partner? No 04/06/2024 Within the last year, have y ou been raped or forced to have any kind of sexual activity by your partner or ex-partner? No 04/06/2024 AUDIT-C Answer Date Recorded Q1: How often do you have a drink containing alc ohol? Never 02/15/2020 Average Number of Drinks Not on file 020 Frequency of Binge Drinking Not on file 01/23 Overall Financial Resource Strain (CARDIA) Answe r Date Recorded How hard is it for you to pa y for the very basics like food, housing, medical care, and heating? Not very hard 04/06/2024 PHQ-2 Answer Date Recorded PHQ-2 SCORE 0 11/28/2024 [facility] - Occupational Stress Questionnaire Answer Date Recorded Do you feel stress - tense, restless, nervous, or anxious, or unable to sleep at night because your mind is troubled all the time - these days? Not at all 04/06/2024 Hunger Vital Sign Answer Date Recorded Within the past 12 months, y ou worried that your food would run out before you got the money to buy more. Never true 04/06/20 24 Within the past 12 months, t he food you bought just didn't last and you didn't have money to get more. Never true 04/06/2024 PRAPARE - Transportation Answer Date Re corded In the past 12 months, has l ack of transportation kept you from medical appointments or from getting medications? No 03/25 In the past 12 months, has l ack of transportation kept you from meetings, work, or from getting things needed for daily living? No 04/06/2024 PHQ-9 Answer Date Recorded PHQ-9 Total Score 14 03/11/2023 Housing Stability Vital Sign Answer Shalom e Recorded In the last 12 months, was t here a time when you were not able to pay the mortgage or rent on time? No 04/06/2024 In the past 12 months, how m any times have you moved where you were living? 1 04/06/2024 At any time in the past 12 m [facility], were you homeless or living in a skilled nursing (including now)? No 04/06/2024 Sex and Gender Information Value Date Recorded Sex Assigned at Male 02/15/2020 8:24 AM MDT Legal Sex Male 5:24 AM MST Gender Identity Male 02/15/2020 8:24 AM MDT Sexual Orientation Straight 02/15/2020 8: 32 AM MDT Last Filed Vital Signs Vital Sign Reading Time Taken Comments Blood Pressure 130/84 01/22/2025 1:35 PM MDT Pulse 98 01/22/2025 1:35 PM MDT Temperature 36.3 C (97.3 F) 01/09/2025 11:19 AM MDT Respiratory Rate 24 01/09/2025 11:4 3 AM MDT Oxygen Saturation 95% 01/09/2025 11: 43 AM MDT Inhaled Oxygen Concentration - - Weight 100.6 kg (221 lb 12.8 oz) 11/28/2024 2:29 PM MDT Height 189 cm (6' 2.41) 11/28/2024 2:29 PM MDT Body Mass Index 28.17 11/28/2024 2:29 PM MDT Plan of Treatment Upcoming Encounters Date Type Department Care Team (Late st Contact Info) Description 02/08/2025 9:00 AM MDT Office Visit [facility] [address] [place] [address] [facility] [place] Health Maintenance Due Date Last Done Comments CT Colonography 1967 Dental Oral Exam 1967 Dental Prophylaxis 1967 Dental X-Ray: Bitewings 1967 Dental X-Ray: Full Mouth 1967 Flexible Sigmoidoscopy 1967 Fluoride Varnish 1967 Stool DNA Test (Cologuard) 1967 Stool Occult Blood Test (FIT) 1967 Medical Durable Power of Candy Supervisor (MDPOA) 1985 Pneumonia Vaccine 50+ (1 of 2 - PCV) 1986 Tdap/Td Vaccine (1 - Tdap) 1986 Shingles Vaccine (1 of 2) 2017 Hepatitis B Vaccine Adult (3 of 3 - 19+ 3-dose series) 02/23/2023 12/29/2022, 09/11/2019 SARS-COV2 (COVID-19) Vaccine ( - season) 2024 Diabetic Eye Exam 07/28/2024 07/28/2023 (Pr eviously Performed Outside of [facility]) Diabetic Foot Exam 04/03/2025 04/03/2024 Monofilament Foot Exam 04/03/2025 04/03/2024 Hemoglobin A1C 05/29/2025 11/26/2024, 08/25, 08/22/2024, Additional history exists Statin for Diabetes 05/29/2025 Postpone d from 10/20/2022 (Clinical Judgment) Urine Microalbumin Creatinine Ratio 08/22/2025 08/22/2024, 04/03/2024, 07/01/2023, Additional history exists Creatinine 11/28/2025 11/28/2024, 06/24, 06/03/2024, Additional history exists Colonoscopy 08/03/2029 08/03/2019, 06/26/2019 Colorectal Cancer Screening 08/03/2029 Lipids 09/08/2029 09/08/2024, 08/25, 09/04/2024, Additional history exists Hepatitis A Vaccines Adult Completed 12/29/2022, HIV Screening (Ages 15-65/One-time) Completed 11/28/2024, 07/01/2023 Procedures Procedure Name Priority Date/Time Associated Diagnosis Comments 5 ND IO-PERIAPICAL 1ST RADIOGRAPHC IMAGE Routine 01/22/2025 1:45 PM MDT Fractured tooth due to trauma with complication, closed, initial encounter 5 ND BITEWING - SINGLE RADIOGRAPHC IMAGE Routine 01/22/2025 1:45 PM MDT Fractured tooth due to trauma with complication, closed, initial encounter ND LTD ORAL EVALUATION - PROBLEM FOCUS Routine 01/22/2025 1:45 PM MDT Fractured tooth due to trauma with complication, closed, initial encounter ND PALLIATVE TX DENTAL PAIN-MINOR PROC Routine 01/22/2025 1:45 PM MDT Fractured tooth due to trauma with complication, closed, initial encounter TREPONEMA PALLIDUM AB - REFLEX Routine 11/28/2024 2:57 PM MDT LAB USE ONLY - RPR TITER (REFLEX) Routine 11/28/2024 2:57 PM MDT HEPATITIS A ANTIBODY IGM Routine 11/28/2024 2:57 PM MDT PT/INR Routine 11/28/2024 2:57 PM MDT Chronic hepatitis C without hepatic coma (HC CODE) LIVER FIBROSIS CHRONIC VIRAL HEPATITIS Routine 11/28/2024 2:57 PM MDT Chronic hepatitis C without hepatic coma (HC CODE) COMPREHENSIVE METABOLIC PANEL Routine 11/28/2024 2:57 PM MDT Chronic hepatitis C without hepatic coma (HC CODE) HIV1/2 ANTIBODY/ANTIGEN SCREEN Routine 11/28/2024 2:57 PM MDT Chronic hepatitis C without hepatic coma (HC CODE) RAPID PLASMA REAGIN ANTIBODY - SOUTH ONLY Routine 11/28/2024 2:57 PM MDT Chronic hepatitis C without hepatic coma (HC CODE) HEPATITIS A AB, TOTAL W/REFL IGM Routine 11/28/2024 2:57 PM MDT Chronic hepatitis C without hepatic coma (HC CODE) HEPATITIS B SURFACE ANTIGEN Routine 11/28/2024 2:57 PM MDT Chronic hepatitis C without hepatic coma (HC CODE) HEPATITIS B SURFACE AB, QUANT Routine 11/28/2024 2:57 PM MDT Chronic hepatitis C without hepatic coma (HC CODE) HEPATITIS B CORE AB TOTAL W/REFL IGM Routine 11/28/2024 2:57 PM MDT Chronic hepatitis C without hepatic coma (HC CODE) HEPATITIS C VIRUS QUANT PCR Routine 11/28/2024 2:57 PM MDT Chronic hepatitis C without hepatic coma (HC CODE) POCT HEMOGLOBIN A1C Routine 11/26/2024 1 1:33 AM MDT Uncontrolled type 2 diabetes mellitus with hyperglycemia, with long-term current use of insulin (HC CODE) ALBUMIN/CREATININE RATIO RANDOM URINE Routine 08/22/2024 9:11 AM MST Controlled type 2 diabetes mellitus without complication, without long-term current use of insulin (HC CODE) Hypertension, essential LIPID PANEL Routine 04/03/2024 7:48 AM MDT Hyperlipidemia, unspecified hyperlipidemia type from Last 3 Months or Most Recently Relevant to Health Maintenance Results * Treponema Pallidum Ab (11/28/2024 2:57 PM MDT) TREPONEMA PALLIDUM AB NEGATIVE NEGATIVE [facility] Comment: Nontreponemal antibodies detected, but syphilis is unlikely, possible biological false positive result. Clinical evaluation should be performed to identify signs, symptoms, or history of past infection. If recent exposure is suspected, submit a new sample in 2-4 weeks. 11/28/2024 2:57 PM MDT 11/28/2024 2:58 PM MDT Narrative [facility] - 12/04/2024 12:42 PM T [facility] [id number] [id number] Kenia Schmid MD us Edgard De Guzman MD LAB BLOOD ORDERABLES Fin al Result [facility] [id number] [place] [address] * HIV 1/2 Antibody/Antigen Screen (11/28/2024 2:57 PM MDT) Pathologist [facility] HIV 1/2 Ag/Ab, 4th Gen Scr NON-REACT JEANETTE NON-REACT JEANETTE [facility] Comment: HIV-1 antigen and HIV-1/HIV-2 antibodies were not detected. There is no laboratory evidence of HIV infection. PLEASE NOTE: This information has been disclosed to you from records whose confidentiality may be protected by state law. If your state requires such protection, then the state law prohibits you from making any further disclosure of the information without the specific written consent of the person to whom it pertains, or as otherwise permitted by law. A general authorization for the release of medical or other information is NOT sufficient for this purpose. For additional information please refer to http://[employer]/faq/GLO481 (This link is being provided for informational/ educational purposes only.) The performance of this assay has not been clinically validated in patients less than 2 years old. Blood BLOOD SPECIMEN / Unknown 11/28/2024 2:57 PM MDT 11/28/2024 2:58 PM MDT Narrative [facility] - 12/04/2024 12:42 PM MDT [facility] [id number] [facility] [place] [address] Kenia Schmid MD Edgard De Guzman MD LAB BLOOD ORDERABLES [facility] al Result [facility] [address] [place] [address] * (ABNORMAL) Hepatitis C Viral RNA, Quantitative, Real-Time PCR ([id number]) (11/28/2024 2:57 PM MDT) Pathologist [facility] HCV Quant Baseline 19,200,00 0(H) NOT DETECTED IU/mL [facility] HCV RNA Quant 7.28(H) NOT DETECTED Log IU/mL [facility] Comment: For additional information, please refer to http://[employer].Conclusive Analytics/faq/PBH87e0 (This link is being provided for informational/ educational purposes only.) Blood 11/28/2024 2:57 PM MDT 11/28/2024 2:58 PM MDT Donnie [facility] - 12/04/2024 12:42 PM MDT [facility] [address] [facility] [place] [address] Kenia Schmid MD Edgard De Guzman MD LAB BLOOD ORDERABLES Fin al Result Performing Organization Address [facility] de Phone Number [facility]ANNY DIRECT [address] [place] [address] * (ABNORMAL) Hepatitis A AB, Total w/Refl IGM (11/28/2024 2:57 PM MDT) Hepatitis A Ab, Total REACTIVE(A ) NON-REACTI VE [facility] Comment: For additional information, please refer to http://[employer]/faq/GUI222 (This link is being provided for informational/ educational purposes only.) 11/28/2024 2:57 PM MDT 11/28/2024 2:58 PM MDT Donnie [facility] - 12/04/2024 12:42 PM MDT [facility] [facility] [place] [address] Kenia Schmid MD Edgard De Guzman MD LAB BLOOD ORDERABLES Fin al Result Performing Organization Address [facility] de Phone Number [facility] [address] [place] [address] * (ABNORMAL) Hepatitis B Surface Antibody Quantitativ (11/28/2024 2:57 PM MDT) Hepatitis B Surface Antibody Quantitative <5(L) > OR = 10 mIU/mL [facility] Comment: Patient does not have immunity to hepatitis B virus. For additional information, please refer to http://[employer]/faq/PFU002 (This link is being provided for informational/ educational purposes only). Blood BLOOD SPECIMEN / Unknown 11/28/2024 2:57 PM MDT 11/28/2024 2:58 PM MDT Donnie [facility] - 12/04/2024 12:42 PM MDT [facility] [address] [place] [address] Kenia Schmid MD Edgard De Guzman MD LAB BLOOD ORDERABLES Fin al Result Performing Organization Address City/[facility]/ZIP Co de Phone Number JOVANNY DENNIS [address] [place] [address] * (ABNORMAL) Rapid Plasma Reagin Antibody (11/28/2024 2:57 PM MDT) RPR REACTIVE(A) NON-REACTIV E [facility] Blood BLOOD SPECIMEN / Unknown 11/28/2024 2:57 PM MDT 11/28/2024 2:58 PM MDT Donnie [facility] - 12/04/2024 12:42 PM MDT [facility] [employer] [address] [facility] [place] [address] Kenia Schmid MD Edgard De Guzman MD LAB BLOOD ORDERABLES Fin al Result Performing Organization Address [facility] Co de Phone Number JOVANNY [address] [address] [place] [address] * Hepatitis B Core AB Total w/Refl IGM (11/28/2024 2:57 PM MDT) Hepatitis B Core Antibody, Total NON-REACTI VE NON-REACTI VE [facility] Comment: For additional information, please refer to http://education.Conclusive [employer]/faq/ANB563 (This link is being provided for informational/ educational purposes only.) Blood 11/28/2024 2:57 PM MDT 11/28/2024 2:58 PM MDT Donnie [facility] - 12/04/2024 12:42 PM MDT [facility] [employer] [address] [facility] [address] Kenia Schmid MD Edgard De Guzman MD LAB BLOOD ORDERABLES Fin al Result Performing Organization Address City/[facility]/ZIP Co de Phone Number [facility] [address] [address] [place], [place] [address] * (ABNORMAL) RPR Titer (11/28/2024 2:57 PM MDT) RPR Titer 1:1(H) [facility] 11/28/2024 2:57 PM MDT 11/28/2024 2:58 PM MDT Narrative [facility] - 12/04/2024 12:42 PM MDT [facility] [address] [place] [address] Kenia Schmid MD Edgard De Guzman MD LAB BLOOD ORDERABLES Fin al Result Performing Organization Address [facility] Co de Phone Number [facility] [address] [address] [place], [place] [address] * (ABNORMAL) Liver Fibrosis, FibroTest-ActiTest Panel ([id number]) (11/28/2024 2:57 PM MDT) Fibrosis Score 0.95 [facility] Fibrosis Stage F4 [facility] Fibrosis Interpretation SEE NOTE [facility] Comment: severe fibrosis Fibro Test Score (f) Metavir Score f>=0 and f<=0.21 : F0 (no fibrosis) f>0.21 and f<=0.27 : F0-F1 (no fibrosis) f>0.27 and f<=0.31 : F1 (minimal fibrosis) f>0.31 and f<=0.48 : F1-F2 (minimal fibrosis) f>0.48 and f<=0.58 : F2 (moderate fibrosis) f>0.58 and f<=0.72 : F3 (advanced fibrosis) f>0.72 and f<=0.74 : F3-F4 (advanced fibrosis) f>0.74 and f<=1.00 : F4 (severe fibrosis) Necroinflammat Activity Score 0.93 [facility] Necroinflammat Activity Grade A3 [facility] Necroinflammat Interpretation SEE NOTE [facility] Comment: severe activity ActiTest Score (a) Metavir Score a>=0 and a<=0.17 : A0 (no activity) a>0.17 and a<=0.29 : A0-A1 (no activity) a>0.29 and a<=0.36 : A1 (minimal activity) a>0.36 and a<=0.52 : A1-A2 (minimal activity) a>0.52 and a<=0.60 : A2 (significant activity) a>0.60 and a<=0.62 : A2-A3 (significant activity) a>0.62 and a<=1.00 : A3 (severe activity) Alpha 2 Macroglobulin 559(H) 106 - 279 mg/dL [facility] Haptoglobin 101 43 - 212 mg/dL [facility] APOLIPOPROTEIN A1 146 94 - 176 mg/dL [facility] Bilirubin Total 1.0 0.2 - 1.2 mg/dL [facility] GGT 687(H) 3 - 85 U/L [facility] Alanine Aminotransferase 213(H) 9 - 46 U/L [facility] Reference ID [id number] [facility] Footnote SEE NOTE [facility] Comment: The reliability of results is dependent on compliance with the preanalytical and analytical conditions recommended by [employer]. The tests have to be deferred for: acute hemolysis, acute hepatitis, acute inflammation, extra hepatic cholestasis. The advice of a specialist should be sought for interpretation in chronic hemolysis and Gilbert's syndrome. The test interpretation is not validated in liver transplant patients. Isolated extreme values of one of the components should lead to caution in interpreting the results. In case of discordance between a biopsy result and a test, it is recommended to seek the advice of a specialist. The causes of these discordances could be due to a flaw of the test or to a flaw in the biopsy: i.e. a liver biopsy has a 33% variability rate for one fibrosis stage. FibroTest is interpretable for chronic hepatitis B and C, alcoholic and non alcoholic steatosis. ActiTest is interpretable for chronic hepatitis B and C. The performance characteristics have been determined by [facility]. It has not been cleared or approved by the U.S. Food and Drug Administration. Performance characteristics refer to the analytical performance of the test. [employer], the associated logo, [employer] and all associated [employer] henry are the registered trademarks of [employer]. All third constitution party henry - (R) and (TM) - are the property of their respective owners. (C) [id number] [employer]. All rights reserved. Blood BLOOD SPECIMEN / Unknown 11/28/2024 2:57 PM MDT 11/28/2024 2:58 PM MDT Narrative [facility] - 12/04/2024 12:42 PM MDT [facility], [address] [facility] [address] Marika Moreland MD,PhD,JOEY Edgard De Guzman MD LAB BLOOD ORDERABLES Fin al Result Performing Organization Address [facility] de Phone Number [facility] [address] [address] [place] [address] * Hepatitis A IgM Antibody (11/28/2024 2:57 PM MDT) Hepatitis A Antibody IgM NON-REACTI VE NON-REACTI VE [facility] Comment: For additional information, please refer to http://[employer]clusive [employer]/faq/BVP821 (This link is being provided for informational/ educational purposes only.) 11/28/2024 2:57 PM MDT 11/28/2024 2:58 PM MDT Narrative [facility] - 12/04/2024 12:42 PM MDT [facility] [address] [address] [facility] [address] Kenia Schmid MD us Edgard De Guzman MD LAB BLOOD ORDERABLES Fin al Result Performing Organization Address [facility] de Phone Number [facility] [address] [place] [address] * Hepatitis B Surface Antigen (11/28/2024 2:57 PM MDT) Hepatitis B Surface Antigen NON-REACTI VE NON-REACTI VE [facility] Comment: For additional information, please refer to http://[employer]/faq/MHW454 (This link is being provided for informational/ educational purposes only.) Blood BLOOD SPECIMEN / Unknown 11/28/2024 2:57 PM MDT 11/28/2024 2:58 PM MDT Donnie [facility] - 12/04/2024 12:42 PM MDT [facility] [employer] [employer] [address] [place] [address] Kenia Schmid MD Edgard De Guzman MD LAB BLOOD ORDERABLES Fin al Result Performing Organization Address [facility] Co de Phone Number [facility] [address] [place] [address] * (ABNORMAL) PT/INR ([id number]) (11/28/2024 2:57 PM MDT) Pathologist [facility] INR 1.1 [facility] Comment: Reference Range 0.9-1.1 Moderate-intensity Warfarin Therapy 2.0-3.0 Higher-intensity Warfarin Therapy 3.0-4.0 PT 11.8(H) 9.0 - 11.5 sec [facility] Comment: For additional information, please refer to http://education.Conclusive [employer]/faq/JKC197 (This link is being provided for informational/ educational purposes only.) Blood BLOOD SPECIMEN / Unknown 11/28/2024 2:57 PM MDT 11/28/2024 2:58 PM MDT Donnie [facility] - 12/04/2024 12:42 PM MDT [facility] [place] [address] [place] [address] Kenia Schmid MD Edgard De Guzman MD LAB BLOOD ORDERABLES Fin al Result Performing Organization Address [facility]/ZIP Co de Phone Number [facility] [address] [place] [address] * (ABNORMAL) Comprehensive Metabolic Panel (11/28/2024 2:57 PM MDT) Glucose Random Serum/Plasma 320(H) 65 - 99 mg/dL [facility] Comment: Fasting reference interval For someone without known diabetes, a glucose value >125 mg/dL indicates that they may have diabetes and this should be confirmed with a follow-up test. Blood Urea Nitrogen 26(H) 7 - 25 mg/dL [facility] Creatinine Serum/Plasma 1.08 0.70 - 1.30 mg/dL [facility] EGFR 80 > OR = 60 mL/min/1. 73m2 [facility] BUN/Creatinine Ratio 24(H) 6 - 22 (calc) [facility] Sodium Serum/Plasma 131(L) 135 - 146 mmol/L [facility] Potassium Serum/Plasma 4.6 3.5 - 5.3 mmol/L [facility] Chloride Serum/Plasma 95(L) 98 - 110 mmol/L [facility] Carbon Dioxide 24 18 - 30 mmol/L [facility] Calcium Serum/Plasma 10.0 8.6 - 10.3 mg/dL [facility] Protein Total, Serum/Plasma 7.7 6.1 - 8.1 g/dL [facility] Albumin 4.4 3.6 - 5.1 g/dL [facility] Globulin, Total 3.3 1.9 - 3.7 g/dL (calc) [facility] A/G Ratio 1.3 1.0 - 2.5 (calc) [facility] Bilirubin Total 1.0 0.2 - 1.2 mg/dL [facility] Alkaline Phosphatase Total 197(H) 35 - 144 U/L [facility] Aspartate Aminotransferase 156(H) 10 - 35 U/L [facility] Alanine Aminotransferase 223(H) 9 - 46 U/L [facility] Blood BLOOD SPECIMEN / Unknown 11/28/2024 2:57 PM MDT 11/28/2024 2:58 PM MDT Narrative [facility] - 12/04/2024 12:42 PM T [facility] [address] [place] [address] Kenia Schmid MD us Edgard De Guzman MD LAB BLOOD ORDERABLES Fin al Result [facility] [address] [place] [address] * (ABNORMAL) POCT Hemoglobin [id number] Result Entry (11/26/2024 11:33 AM FORTUNATO) POCT Hemoglobin A1C 9.5(A) 4.0 - 6.0 % STRIDE [facility] 11/26/2024 11:3 3 AM MDT us Aleja Pedraza MD POINT OF CARE TEST ORDERABLE S Final Result [facility] [address] [place] [address], [facility] * Albumin/Creatinine Ratio Random Urine ([id number]) (08/22/2024 9:11 AM RUST) Creatinine, Random Urine 96 20 - 320 mg/dL [facility] Microalbumin Urine 1.6 See Note: mg/dL [facility] Comment: Reference Range: Reference Range Not established Microalbumin/Creat inine Ratio 17 <30 mg/g creat [facility] Comment: The ADA defines abnormalities in albumin excretion as follows: Albuminuria Category Result (mg/g creatinine) Normal to Mildly increased <30 Moderately increased 30-299 Severely increased > OR = 300 The ADA recommends that at least two of three specimens collected within a 3-6 month period be abnormal before considering a patient to be within a diagnostic category. Urine URINE SPECIMEN / Unknown 08/22/2024 9:11 AM RUST 08/23/2024 5:03 AM RUST Narrative [facility] - 08/24/2024 1:24 AM RUST [facility] [address] [place] [address] Kenia Schmid MD us Erika Ahumada NP URINE ORDERABLES Final Result Performing Organization Address City/[facility] Co de Phone Number [facility] [address] [place] [address] * (ABNORMAL) Lipid Panel with Reflex to Direct LDL ([id number]) (04/03/2024 7:48 AM MDT) Cholesterol 173 <200 mg/dL [facility] High Density Lipoprotein Chol 48 > OR = 40 mg/dL [facility] Triglycerides 143 <150 mg/dL [facility] LDL 101(H) mg/dL (calc) [facility] Comment: Reference range: <100 Desirable range <100 mg/dL for primary prevention; <70 mg/dL for patients with CHD or diabetic patients with > or = 2 CHD risk factors. LDL-C is now calculated using the Christian-Ventura calculation, which is a validated novel method providing better accuracy than the Friedewald equation in the estimation of LDL-C. Christian SS et al. DARIO. 2013;310(19): 2671-6580 (http://education.EME International/faq/BDF541) Total HDL-C Direct 3.6 <5.0 (calc) [facility] Non HDL 125 <130 mg/dL (calc) [facility] Comment: For patients with diabetes plus 1 major ASCVD risk factor, treating to a non-HDL-C goal of <100 mg/dL (LDL-C of <70 mg/dL) is considered a therapeutic option. Blood BLOOD SPECIMEN / Unknown 04/03/2024 7:48 AM MDT 04/03/2024 7:48 AM FORTUNATO Narrative [facility] - 04/04/2024 6:21 AM FORTUNATO [facility] [address] [address] [place] [address] Kenia [facility] [address] [address] [employer] [place] [address] Kenia Schmid MD us Erika Ahumada NP LAB BLOOD ORDERABLES Final Res ult [facility] [address] [place] [address] from Last 3 Months or Most Recently Relevant to Health Maintenance Insurance [facility]ICAID [facility] MEDICAID [facility] MAHSA 3 DENTAQUEST Care Teams Special Loan Officer Relationship Specialty Start Date End Date Erika Ahumada NP [address] [place] [address] PCP - General 04/03/24
--- OUTSIDE RECORDS SUMMARY | 2025-02-06 19:07 | XMS_ITS | Encounter Summary ---
Author Organization [facility] Address [address], [place] [address] Care Team Providers Care Tire Mechanic Name Role Phone Grisel Morales PHOTOLITHOGRAPHIC STRIPPER Primary Care Provider Vida Block PA Primary Care Provider Marcela Erika Morales PHOTOLITHOGRAPHIC STRIPPER Primary Care Provider [phone] Darcy Young Unavailable Unavailable Darcy Young Unavailable Unavailable Darcy Young Unavailable Unavailable Encounter Details Date Type Department Care Team (Late st Contact Info) Description 01/18/2023 Orders Only [facility] [address] [address] Physician, Unknown Social History Tobacco Use Types Packs/Day Years Used Date Smoking Tobacco: Every Day Cigarettes Passive Smoke Exposure: Never Smokeless Tobacco: Never Alcohol Use Standard Drinks/Week Comments Never 0 (1 standard drink = 0.6 oz pur e alcohol) AUDIT-C Answer Date Recorded Q1: How often do you have a drink containing alc ohol? Never 02/15/2020 Average Number of Drinks Not on file 020 Frequency of Binge Drinking Not on file 01/23 PHQ-2 Answer Date Recorded PHQ-2 SCORE 0 01/18/2023 Sex and Gender Information Value Date Recorded Sex Assigned at Male 02/15/2020 8:24 AM MDT Legal Sex Male 5:24 AM MST Gender Identity Male 02/15/2020 8:24 AM MDT Sexual Orientation Straight 02/15/2020 8: 32 AM MDT documented as of this encounter Plan of Treatment Upcoming Encounters Date Type Department Care Team (Late st Contact Info) Description 02/08/2025 9:00 AM MDT Office Visit [facility] [address] [place] [address] Mee Arango [facility] [place] documented as of this encounter Visit Diagnoses Not on filedocumented in this encounter Additional Health Concerns Infection Onset Date Last Indicated Resolved Time Enhanced Respiratory Results Pending 03/17/2024 03/17/2024 03/17/2024 11:30 AM MDT Assessment Noted Time PHQ-2 Depression Total Score: 0 01/19/20 3:11 PM MDT documented as of this encounter Care Teams Tire Mechanic Relationship Specialty Start Date End Date Grisel Morales NP PCP - General Nurse Practitioner 02/15/20 05/12/23 Vida Block PA PCP - General Physician Welding Machine Feeder 05/13/23 04/02/24 Erika Ahumada NP [address] [place] [address] PCP - General [facility] 04/06/24 04/06/24 Hannah [facility] [place] Pattern Scratcher (dept) 04/11/24 04/11/24 Hannah [facility] [place] Pattern Scratcher (service) 06/25/24 06/25/24 documented as of this encounter
--- OUTSIDE RECORDS SUMMARY | 2025-02-06 19:07 | XMS_ITS | Encounter Summary ---
Author Organization [facility] Address [address] [address] Care Team Providers Care Meal Cooker Name Role Phone Vida Block Primary Care Provider Erika Castillo NP Primary Care Provider [phone] Hannah Darcy Unavailable Unavailable Hannah, Darcy Unavailable Unavailable Hannah, Darcy Unavailable Unavailable Reason for Visit * Reason Comments Medication Refill Encounter Details Date Type Department Care Team (Late Contact Info) Description 02/10/2024 Refill STRIDE [facility] [address] [place] [address] Vida Block PA Social History Tobacco Use Types Packs/Day Years [...] PHQ-2 Answer Date Recorded PHQ-2 SCORE 0 05/13/2023 PHQ-9 Answer Date Recorded PHQ-9 Total Score 14 03/11/2023 Sex and Gender Information Value Date Recorded Sex Assigned at Male 02/15/2020 8:24 AM MDT Legal Sex Male 5:24 AM [facility] Gender Identity Male 02/15/2020 8:24 AM MDT Sexual Orientation Straight 02/15/2020 8: 32 AM MDT documented as of this encounter Plan of Treatment Upcoming Encounters Date Type Department Care Team (Late st Contact Info) Description 02/08/2025 9:00 AM MDT Office Visit [facility] [address] [place] [address] Mee Arango [facility] documented as of this encounter Visit Diagnoses Not on filedocumented in this encounter Additional Health Concerns Infection Onset Date Last Indicated Resolved Time Enhanced Respiratory Results Pending 03/17/2024 03/17/2024 03/17/2024 11:30 AM MDT Assessment Noted Time PHQ-9 Depression Total Score: 14 023 1:20 PM MDT PHQ-2 Depression Total Score: 0 05/13/20 23 8:28 AM MDT documented as of this encounter Care Teams Meal Cooker Relationship Specialty Start Date End Date Vida Block PA PCP - General Physician Range Aide 05/13/23 04/02/24 Erika Ahumada NP [address] [place] [address] PCP - General 04/03/24 Hannah [facility] [place] Shell Mold Bonder (service) 04/06/24 04/06/24 Hannah [facility] [place] Shell Mold Bonder (dept) 04/11/24 04/11/24 Hannah [facility] [place] Shell Mold Bonder (service) 06/25/24 06/25/24 documented as of this encounter
--- OUTSIDE RECORDS SUMMARY | 2025-02-06 19:07 | XMS_ITS | Referral Summary ---
Author Organization [facility] Address [address] [place] [address] Care Team Providers Care Border Machine Operator Name Role Phone Pcp, Generic Provider Primary Care Provider Allergies No known active allergies Medications metFORMIN (GLUCOPHAGE) 850 MG tablet Take 850 mg by mouth 2 times a day. 2 9 Active atomoxetine (STRATTERA) 18 MG capsule Take 18 mg by mouth daily. 4 9 Active lamoTRIgine (LaMICtal) 100 MG tablet Take 100 mg by mouth daily. 3 9 Active mirtazapine (REMERON) 15 MG tablet Take 15 mg by mouth nightly. 4 9 Active OLANZapine (ZyPREXA) 10 MG tablet TAKE 1/2 TABLET PO AT BEDTIME AND 1/2 TABLET WHEN WAKES UP IN THE MIDDLE OF THE NIGHT 3 9 Active omeprazole (PriLOSEC) 40 MG capsule SMARTSI Capsule(s) By Mouth Daily PRN 9 Active sodium,potassium ,magnesium sulfate (SUPREP) 17.5-3.13-1.6 gram recon solnIndications: Per Doctor's Instruction Indications: Per Doctor's Instruction. Use as directed 354 mL 0 Active methocarbamoL (ROBAXIN) 500 MG tablet Take 3 tablets (1,500 mg) by mouth 4 times a day for 2 days, THEN 2 tablets (1,000 mg) 4 times a day for 5 days. 64 tablet 4 Active Active Problems No known active problems Social History Tobacco Use Types Packs/Day Years Used Date Smoking Tobacco: Every Day Cigarettes Smokeless Tobacco: Never Tobacco Cessation:Ready to Q uit: Yes; Counseling Given: Yes Comments:one pack every 3 days Alcohol Use Standard Drinks/Week Comments Not Currently 0 (1 standard drink = 0.6 oz pur e alcohol) previously social intake PHQ-2 Answer Date Recorded PHQ-2 Score 0 06/26/2019 Sex and Gender Information Value Date Recorded Sex Assigned at Not on file Legal Sex Male 7:36 AM MDT Gender Identity Not on file Sexual Orientation Not on file Last Filed Vital Signs Vital Sign Reading Time Taken Comments Blood Pressure 135/65 09/04/2023 12:[address] [facility] Pulse 88 09/04/2023 12:[address] [facility] Temperature 36.6 C (97.8 F) 09/04/2023 12:[address] [facility] Respiratory Rate 19 09/04/2023 12:[address] [facility] Oxygen Saturation 98% 09/04/2023 12:[address] [facility] Inhaled Oxygen Concentration - - Weight 99.8 kg (220 lb) 09/03/2023 9:[address] [facility] Height 188 cm (6' 2) 09/03/2023 9:[address] [facility] Body Mass Index 28.25 09/03/2023 9:[address] [facility] Plan of Treatment Not on file Procedures Procedure Name Priority Date/Time Associated Diagnosis Comments COLONOSCOPY 08/03/2019 9:[address] [facility] HEPATITIS C RNA, QUANTITATIVE, PCR Routine 07/23/2019 11:[address] [facility] Chronic hepatitis C without hepatic coma (CMS/HCC) Gastroesophageal reflux disease, esophagitis presence not specified Acute gastric ulcer without hemorrhage or perforation from Last 3 Months or Most Recently Relevant to Health Maintenance Results * COLONOSCOPY (08/03/2019 9:[address] [facility]) 08/03/2019 9:[address] [facility] Narrative Transcriptions Nixon Miranda DO - 08/03/2019 9:41 AM MST [facility] Special Procedures - Gastroenterology Patient Name: Manny Jerez Procedure Date: 08/03/2019 9:41 AM Date of : 1965 Admit Type: Outpatient Age: 54 Room: [place] [address] Gender: Male Attending MD: Nixon Miranda , DO Specimens Collected?: No Procedure: Colonoscopy Indications: Screening for colorectal malignant neoplasm Providers: Nixon Miranda DO FACP Referring MD: Grisel Morales (Referring MD) Medicines: See the Anesthesia note for documentation of the administered medications Complications: No immediate complications. Impression: - Poor prep, exam clearly compromised. - No significant obstructive lesions noted. - Moderate non-bleeding internal hemorrhoids. - The cecum, appendiceal orifice and ileocecal valve are normal. - No specimens collected. - Difficulty: 1 - Prep quality: [employer] 1,1,1 = 3 Findings: Non-bleeding internal hemorrhoids were found during retroflexion. The hemorrhoids were medium-sized. The cecum, appendiceal orifice and ileocecal valve appeared normal. The perianal and digital rectal examinations were normal. Pertinent negatives include normal sphincter tone and no palpable rectal lesions. Procedure: Pre-Anesthesia Assessment: - Prior to the procedure, a History and Physical was performed, and patient medications, allergies and sensitivities were reviewed. The patient's tolerance of previous anesthesia was reviewed. - The risks and benefits of the procedure and the sedation options and risks were discussed with the patient. All questions were answered and informed consent was obtained. - Patient identification and proposed procedure were verified prior to the procedure by the physician, the nurse and the power mule operator. The procedure was verified in the pre-procedure area in the procedure room. After obtaining informed consent, the colonoscope was passed under direct vision. Throughout the procedure, the patient's blood pressure, pulse, and oxygen saturations were monitored continuously. The Colonoscope was introduced through the anus and advanced to the cecum, identified by appendiceal orifice and ileocecal valve. The colonoscopy was performed without difficulty. The patient tolerated the procedure well. The quality of the bowel preparation was evaluated using the BBPS ([employer] Bowel Preparation Scale) with scores of: Right Colon = 1 (portion of mucosa seen, but other areas not well seen due to staining, residual stool and/or opaque liquid), Transverse Colon = 1 (portion of mucosa seen, but other areas not well seen due to staining, residual stool and/or opaque liquid) and Left Colon = 1 (portion of mucosa seen, but other areas not well seen due to staining, residual stool and/or opaque liquid). The total BBPS score equals 3. Nixon Miranda DO 08/03/2019 11:13:47 AM This report has been signed electronically.Nixon Miranda DO Procedure Code(s): --- Professional --- 42706, Colonoscopy, flexible; diagnostic, including collection of specimen(s) by brushing or washing, when performed (separate procedure) Diagnosis Code(s): --- Professional --- Z12.11, Encounter for screening for malignant neoplasm of colon K64.8, Other hemorrhoids CPT copyright 2017 [employer]. All rights reserved. The codes documented in this report are preliminary and upon holiday detector operator review may be revised to meet current compliance requirements. Patient Profile: Refer to note in patient chart for documentation of history and physical. Last Colonoscopy: none. The patient's first colonoscopy is today. Recommendation: - Discharge patient to home (ambulatory). - Resume regular diet. - Repeat colonoscopy within 6 months because the bowel preparation was poor. Will emphasize adherence to the prep outline and add MOM and Trulance. - Return to GI office in 6 weeks. Procedure Date: 08/03/2019 9:41:58 AM Scope Withdrawal Time: 0 hours 4 minutes 57 seconds Total Procedure Duration: 0 hours 8 minutes 31 seconds Estimated Blood Loss: Estimated blood loss was minimal. Scope In: 10:53:04 AM Scope Out: 11:01:35 AM Nixon Miranda DO GI/ENDOSCOPY NOTE PROCED URES Final Result * Hepatitis C RNA quantitative by PCR (07/23/2019 11:[address] [facility]) Hepatitis C Quantitation See Final Results IU/mL [facility] 1 Test Information: Comment [facility] 1 Comment:The quantitative ran ge of this assay is 15 IU/mL to 100 million IU/mL. Blood Venous blood / Unknown 07/23/2019 11:[address] [facility] 07/23/2019 Narrative [facility] - 07/25/2019 7:06 PM MST Performed at: 01 - [address] [id number] Se[address] Teacher: Vicenta Davis MD, Phone: [phone] Nixon Miranda DO LAB BLOOD ORDERABLES Fin al Result [facility] [id number], [address] [address] [facility] 1 from Last 3 Months or Most Recently Relevant to Health Maintenance Insurance [place] MED[place] [employer] PENDING Care Teams Border Machine Operator Relationship Specialty Start Date End Date Pcp, Generic Provider PCP - General Medicine 09/03/23
--- OUTSIDE RECORDS SUMMARY | 2025-02-06 19:07 | XMS_ITS | Continuity of Care Document ---
Author Organization [facility] Address [address] [place] [address] Phone Care Team Providers Care Manager Study Name Role Phone Nick Morton MD Unavailable Unavailable Allergies, Adverse Reactions, Alerts Substance Reaction Status Criticality No Known Allergies Active No Inform ation Medications Medication Instructions Dosage Effective Dates (start - stop) Status Comments Flomax 0.4 mg capsule take 1 capsule by ORAL route every day 0.4 MG - Active metformin 500 mg tablet take 1 tablet by oral route every day with morning and evening meals 500 MG - Active omeprazole 20 mg tablet,delayed release take 1 capsule by oral route every day 1 capsule - Active Procedures Procedure Date OFFICE/OUTPATIENT VISIT, [facility] ECG Interp & Report Advance Directives Directive Yes / No Effective Date File Name No Information Encounters Encounter Description Practice Location Reason(s) For Visit Diagnoses Date Provider Providers Copied on Encounter OFFICE/OUTPA TIENT VISIT, [facility], [address], [place], [place], [id number], tel:[phone] [facility] Office Lightheadedne ss (chief complaint) Type 2 diabetes mellitus without complication , without long-term current use of insulinLight headednessBi lateral carotid artery disease, unspecified typeTobacco use 3 Praveen Romero. [address], [address] [facility], [place], [place], [id number] , [place]. tel: [phone] Referring Provider: Grisel Morales, [address], [place], [address]. tel:[phone] Family History Family Member Type Diagnosis Age At Onset Father Problem Alive and well Payers Payer name Insurance type Covered libertarian ID [employer] jones(s) MEDICAID [facility] [id number] Social History Type Description Quantity Date Captured Comments Alcohol Use Details No Caffeine Use Details soda Tobacco Use Status Heavy cigarette smok er (20-39 cigs/day) Smoking Status Heavy tobacco smoker Smoking Tobacco Use Details Cigarette: Age Started: 16 Cigarette: 1 Packs per day Sex Male Vital Signs Date / Time: Height Weight BMI Pulse Rate Blood Pressure Temperature Respiratory Rate Body Surface Area Head Circumference Head Circ. Percentile Wt./Donnell. Percentile BMI percentile Pulse Ox Inhaled Ox 3:50 PM 74.00 in 99.790 kg (220.00 lbs) 28.2 5 kg/m eter (2) 98 /min 132/76 mm[Hg] 92 % Chief Complaint And Reason For Visit From encounter dated '06/03/2023 15:30'. Lightheadedness (chief complaint). Description: 1. Carotid Artery disease, mild2. Near Syncope due to dehydration3. DMII4. pulmonary nodule, recommend pulm eval/review5. Hyperlipidemia likelyWork: HandymanExercise: nothing routineCaffeine: SodaEtOH: noneTobacco: current smoker, since age 16 up to 2ppd, currently at ~1 ppdIllicit: Patient presents today as a cardiac consult referred by Grisel Morales ROLLER PAINTER for evaluation and treatment of lightheadedness and mild carotid disease. Today the patient reports feeling well in general without chest pain or discomfort. He reports to intermittent lightheadedness, exacerbated with warmer temperatures. He also endorses some fatigue and shortness of breath upon exertion with associated low energy levels. He has not complained of palpitations or irregular heart rhythms. He denies LE edema, claudication, syncope, or TIA/CVA like symptoms. Reason For Referral Reason For Referral No Information History Of Present Illness Encounter Date Complaint History Of Prese nt Illness Lightheadedness 1. Carotid Arter y disease, mild2. Near Syncope due to dehydration3. DMII4. pulmonary nodule, recommend pulm eval/review5. Hyperlipidemia likelyWork: HandymanExercise: nothing routineCaffeine: SodaEtOH: noneTobacco: current smoker, since age 16 up to 2 ppd, currently at ~1 ppdIllicit: Patient presents today as a cardiac consult referred by Grisel Morales ROLLER PAINTER for evaluation and treatment of lightheadedness and mild carotid disease. Today the patient reports feeling well in general without chest pain or discomfort. He reports to intermittent lightheadedness, exacerbated with warmer temperatures. He also endorses some fatigue and shortness of breath upon exertion with associated low energy levels. He has not complained of palpitations or irregular heart rhythms. He denies LE edema, claudication, syncope, or TIA/CVA like symptoms. Functional Status Date Functional Assessmen t No Information Instructions Date Instruction Additional Infor mation Recommend Pulmonary eval to review CT and consider additional f/u Related to Tobacco use - EKG today normal- Does not sound cardiac, more related to dehydration.- no recurrence- Encouraged increased water intake and reduction in soda consumption- Follow up on an as needed basis Related to Lightheadedness - Discussed aggressi ve cholesterol management- he would like to work with his PCP on this and has appmt next week with themWould start statin therapy Related to Bilateral carotid artery disease, unspecified type - Continue to follow with PCP. R elated to Type 2 diabetes mellitus without complication, without long-term current use of insulin Assessments Type Assessment Date assessment Type 2 diabetes ernestina itus without complication, without long-term current use of insulin assessment Lightheadedness assessment Bilateral carotid artery disease , unspecified type impression On Metformin. Manged by PCP. No recent Hem A1c to review. impression Mild nonobstructive carotid artery disease. CT Head/Neck 05/11/23: Scattered atherosclerosis, including carotid bifurcations, without hemodynamically significant stenosis.He endorses intermittent lightheadedness. More notable in the warmer months. Nov-10-2023 impression He was seen in the [facility] in [facility] in the summer months with weakness and lightheadedness, treated with IV fluids. Since then has had intermittent lightheadedness, exacerbated with heat and dehydration. No syncope however does endorse to intermittent near syncope. BW 03/11/23: RBC 6.50 (H), HGB 18.9 (H), HCT 57.9 (H), Cr 1.08, K+ 3.8, Na 137 assessment Tobacco use impression <1ppd smoking histor y. Previously [address] Chest 01/27/23: Calcified granuloma in the right lung and lymph notes in the right hilum consistent with prior granulomatous disease. Pulmonary nodules measuring up to 4mm. Patient Care Teams Name Effective Dates (start - stop) Status Members No Information
--- OUTSIDE RECORDS SUMMARY | 2025-02-06 19:07 | XMS_ITS | Encounter Summary ---
Author Organization [facility] Address [address] [address] Care Team Providers Care Market Director Name Role Phone Grisel Morales GRAVEL SCREENER Primary Care Provider Vida Block PA Primary Care Provider Marcela Erika Morales GRAVEL SCREENER Primary Care Provider [phone] Darcy Young Unavailable Unavailable Darcy Young Unavailable Unavailable Darcy Young Unavailable Unavailable Encounter Details Date Type Department Care Team (Late st Contact Info) Description 04/07/2020 External Data Docume ntation Only Social History Tobacco Use Types Packs/Day Years Used Date Smoking Tobacco: Every Day Cigarettes Smokeless Tobacco: Never Alcohol Use Standard Drinks/Week Comments Never 0 (1 standard drink = 0.6 oz pur e alcohol) AUDIT-C Answer Date Recorded Q1: How often do you have a drink containing alc ohol? Never 02/15/2020 Average Number of Drinks Not on file 020 Frequency of Binge Drinking Not on file 01/23 PHQ-2 Answer Date Recorded PHQ-2 SCORE 0 02/19/2020 Sex and Gender Information Value Date Recorded Sex Assigned at Male 02/15/2020 8:24 AM MDT Legal Sex Male 5:24 AM MST Gender Identity Male 02/15/2020 8:24 AM MDT Sexual Orientation Straight 02/15/2020 8: 32 AM MDT documented as of this encounter Plan of Treatment Upcoming Encounters Date Type Department Care Team (Late st Contact Info) Description 02/08/2025 9:00 AM MDT Office Visit [facility] [address] [place] [address] Mee Campo [facility] documented as of this encounter Visit Diagnoses Not on filedocumented in this encounter Additional Health Concerns Infection Onset Date Last Indicated Resolved Time Enhanced Respiratory Results Pending 03/17/2024 03/17/2024 03/17/2024 11:30 AM MDT Assessment Noted Time PHQ-2 Depression Total Score: 0 02/19/20 1:17 PM MDT documented as of this encounter Care Teams Market Director Relationship Specialty Start Date End Date Grisel Morales, SPENCER PCP - General Nurse Practitioner 02/15/20 05/12/23 Vida Block PA PCP - General Physician Powder Truck Driver 05/13/23 04/02/24 Erika Ahumada NP [address] [place] [id number] PCP - General [facility] 04/06/24 04/06/24 [facility] [place] Audograph Operator (dept) 04/11/24 04/11/24 [facility] [place] Audograph Operator (service) 06/25/24 06/25/24 documented as of this encounter
--- OUTSIDE RECORDS SUMMARY | 2025-02-06 19:07 | XMS_ITS | Clinical Summary ---
Author Organization [facility] Address [facility] [address], [address] [place] [address] Care Team Providers Care Outpatient Coordinator Name Role Phone Erika Ahumada NP Primary Care Provider [phone] Source Comments [facility] (Labor and Delivery) documents do not appear in the Encounter Summary [facility] Allergies No known active allergies Medications * Please verify current medications with patient. omeprazole (PRILOSEC) 20 mg delayed release capsule Take 20 mg by mouth once a day Active metFORMIN (GLUCOPHAGE) 1,000 mg tablet Take 1,000 mg by mouth once a day 09/21/2022 Active lisinopriL (PRINIVIL) 10 mg tablet Take 10 mg by mouth once a day Active insulin glargine (LANTUS) 100 unit/mL injection Inject 20 Units just under the skin at bedtime 10 mL 09/08/2024 10:47 AM [facility] 09/08/2024 Active Insulin Syringe-Needle U-100 (TRUEPLUS INSULIN) 0.3 mL 31 gauge x 5/16 syrg Use to inject insulin just under the skin at bedtime 100 each 09/08/2024 10:47 AM [facility] 09/08/2024 Active Blood-Glucose Meter Glucometer Test blood glucose once a day 1 each 09/08/2024 10:47 AM [facility] 09/08/2024 Active lancets (ONETOUCH DELICA PLUS LANCET) 33 gauge misc Test blood glucose once a day 100 each 09/08/2024 10:47 AM [facility] 09/08/2024 Active ONETOUCH VERIO TEST STRIPS glucose strips Test blood glucose once a day 50 each 09/08/2024 10:47 AM [facility] 09/08/2024 Active Active Problems Problem Noted Date Diagnosed Date RAUL (acute kidney injury) ([facility]-CMS) 09/08/2024 Gastroesophageal reflux disease without esophagi tis 09/08/2024 Hyperosmolar hyperglycemic state (HCC-Multiple) 09/07/2024 Hepatitis C Overview (09/08/2024): hep C Hypertension Encounters Date Type Department Care Team Description 01/09/2025 8:12 PM MDT - 01/09/2025 10:23 PM MDT Emergency [facility] [address] [place] [address] Adina Aguilar MD Discharge Disposition: Home or Self Care 01/09/2025 12:24 PM MDT - 01/09/2025 3:58 PM MDT Emergency [facility] [address] [place] [address] Mee Amaya MD Discharge Disposition: Left Against Medical Advice from Last 3 Months Social History Tobacco Use Types Packs/Day Years Used Date Smoking Tobacco: Every Day Cigarettes 0.5 20 Smokeless Tobacco: Never Tobacco Cessation:Ready to Q uit: Not Asked; Counseling Given: Not Answered Alcohol Use Standard Drinks/Week Comments No 0 (1 standard drink = 0.6 oz pur e alcohol) Hunger Vital Sign Answer Date Recorded Within the past 12 months, y ou worried that your food would run out before you got the money to buy more. Never true 09/07/19 25 Within the past 12 months, t he food you bought just didn't last and you didn't have money to get more. Never true 09/07/2024 PRAPARE - Transportation Answer Date Re corded In the past 12 months, has l ack of transportation kept you from medical appointments or from getting medications? No 08/25 In the past 12 months, has l ack of transportation kept you from meetings, work, or from getting things needed for daily living? No 09/07/2024 Housing Stability Vital Sign Answer Shalom e Recorded In the last 12 months, was t here a time when you were not able to pay the mortgage or rent on time? Yes 09/07/2024 In the past 12 months, how m any times have you moved where you were living? 0 09/07/2024 At [facility] time in the [facility], were you homeless or living in a correction (including now)? No 09/07/2024 Financial Resource Strain Answer Date R ecorded Is it difficult to pay utili ty bills such as heating, water, electricity or pay for medical bills and prescriptions? Not very hard 09/07/2024 Interpersonal Abuse / Violence Answer D ate Recorded Have you been afraid, humili ated, emotionally abused, neglected, or controlled? No 09/07/2024 Have you been kicked, hit, s lapped, or otherwise physically hurt? No 09/07/2024 Have you been raped or force d to have any kind of sexual activity without your consent? No 09/07/2024 Sex and Gender Information Value Date Recorded Sex Assigned at Not on file Legal Sex Male 8:00 AM MST Gender Identity Not on file Sexual Orientation Not on file Last Filed Vital Signs Vital Sign Reading Time Taken Comments Blood Pressure 140/85 01/09/2025 10:00 PM MDT Pulse 89 01/09/2025 10:00 PM MDT Temperature 36.2 C (97.2 F) 01/09/2025 8:13 PM MDT Respiratory Rate 21 01/09/2025 10:00 PM MDT Oxygen Saturation 93% 01/09/2025 10:00 PM MDT Inhaled Oxygen Concentration - - Weight 99.8 kg (220 lb) 01/09/2025 8:13 PM MDT Height 188 cm (6' 2) 01/09/2025 8:13 PM MDT Body Mass Index 28.25 01/09/2025 8:13 PM MDT Plan of Treatment Health Maintenance Due Date Last Done Comments (uACR) Diabetes Kidney Health Screening 1965 Diabetes Eye Exam 1965 Diabetes Foot Exam 1965 Pneumococcal Vaccine: Pediatrics (0 to 5 Years) and At-Risk Patients (6 to 64 Years) (1 of 2 - PCV) 1986 Tetanus Diphtheria and Pertussis Vaccines (1 - Tdap) 1986 CT Colonography 2012 Colon Cancer Screening 2012 Colonoscopy 2012 DNA-based stool test (Cologuard) 2012 Sigmoidoscopy 2012 gFOBT or FIT 2012 Zoster Vaccines (1 of 2) 2017 Hepatitis B Vaccine (3 of 3 - 19+ 3-dose series) 02/23/2023 12/29/2022, 09/11/2019 COVID-19 Vaccine (1 - season) 2024 Influenza Vaccine (#1) 2025 Diabetes A1C Test 05/29/2025 11/26/2024, , 08/22/2024, Additional history exists (eGFR) Diabetes Kidney Health Screening 01/09/2026 01/09/2025, 01/09/2025, 09/07/2024, Additional history exists RSV Vaccines (1 - 1-dose 75+ series) 2042 Hepatitis A Vaccine Completed 12/29/2022, Lung Cancer Screening Discontinued 05/21/2024 , 01/27/2023, 01/04/2022, Additional history exists HIV Screening Completed 11/28/2024, 07/01/2023 HPV Vaccine Aged Out No longer eligi ble based on patient's age to complete this topic Hib Vaccine Aged Out No longer eligi ble based on patient's age to complete this topic IPV Vaccine Aged Out No longer eligi ble based on patient's age to complete this topic Meningococcal B Vaccine Aged Out No l onger eligible based on patient's age to complete this topic Meningococcal Vaccine (MCV4) Aged Out No longer eligible based on patient's age to complete this topic Rotavirus Vaccine Aged Out No longer eligible based on patient's age to complete this topic Procedures Procedure Name Priority Date/Time Associated Diagnosis Comments CT ANGIOGRAPHY HEAD AND NECK STAT 01/09/2025 9:07 PM MDT SST TO HOLD STAT 01/09/2025 8:44 PM MDT TROPONIN I, 5TH GENERATION STAT 01/09/2025 8:43 PM MDT TROPONIN STAT 01/09/2025 8:43 PM MDT COMPREHENSIVE METABOLIC PANEL STAT 01/09/2025 8:43 PM MDT CBC WITH DIFFERENTIAL STAT 01/09/2025 8:43 PM MDT 12 LEAD EKG STAT 01/09/2025 8:33 PM MDT Dizziness TROPONIN I, 5TH GEN, SUBSEQUENT (REFLEX 1HR) Timed STAT 01/09/2025 2:03 PM MDT 12 LEAD EKG STAT 01/09/2025 2:02 PM MDT 12 LEAD EKG STAT 01/09/2025 12:50 PM MDT TROPONIN I, 5TH GEN, BASELINE (FOR OSQ THAT REFLEXES 1HR) STAT 01/09/2025 12:47 PM MDT COMPREHENSIVE METABOLIC PANEL STAT 01/09/2025 12:47 PM MDT CBC WITH DIFFERENTIAL STAT 01/09/2025 12:47 PM MDT XR CHEST PORTABLE 1 VIEW STAT 01/09/2025 12:45 PM MDT HEMOGLOBIN A1C Routine 09/07/2024 5:[address] ANGIOGRAPHY CHEST STAT 08/31/2018 5:40 PM MST from Last 3 Months or Most Recently Relevant to Health Maintenance Results * CT Angiography Head And Neck (01/09/2025 9:07 PM MDT) Anatomical Region Laterality Modality vascular Computed Tomogra phy 01/09/2025 9:33 PM MDT Narrative 01/09/2025 9:42 PM MDT COMPUTED TOMOGRAPHY OF THE HEAD WITHOUT CONTRAST, COMPUTED TOMOGRAPHY ANGIOGRAPHY OF THE HEAD AND NECK WITH INTRAVENOUS CONTRAST EXAM DATE AND TIME: 01/09/2025 21:06 MDT INDICATION: Transient ischemic attack. Dizziness. Near syncope. TECHNIQUE: CT images of the brain were acquired in the axial plane without contrast. Axial thin-slice helical computed tomographic data was acquired through the head and neck using 80 mL Isovue 370. Following an unenhanced topogram, IV contrast was injected without a reported adverse reaction. Postcontrast data was optimized specifically for visualization of the vascular anatomy and the acquired dataset was evaluated with computed reconstructions. Three-dimensional (volume-rendered/MIP/shaded surface rendering) reconstructions were postprocessed and evaluated in multiple projections on a cine workstation. Stenosis measurements were performed with reference to NASCET criteria utilizing electronic calipers on the radiology workstation. Dose reduction techniques were employed using one or more of the following: automated exposure control; adjustment of the mA and/or kV according to patient size; use of iterative reconstruction. COMPARISON: CT angiography head/neck 03/11/2023. FINDINGS: HEAD: INTRACRANIAL CONTENTS: No acute intracranial hemorrhage. No acute infarct identified by CT. No mass effect. No extra-axial collection. Minimal white matter presumed chronic microangiopathic ischemic changes again demonstrated. Mild cerebellar predominant volume loss again demonstrated. No hydrocephalus. CALVARIUM: No acute calvarial fractures. EXTRACRANIAL STRUCTURES: Retention cysts or polyps along the floors of bilateral maxillary sinuses. Minimal frontal and ethmoid mucosal thickening. Clear mastoid air cells. No suspicious orbit abnormality. CTA: AORTIC ARCH: Left-sided arch. Common origin of innominate and left common carotid artery. Minimal/scattered atherosclerotic plaque. No stenosis/dissection. CAROTIDS: Mild atherosclerotic plaque at bilateral carotid bifurcations. No stenosis/dissection. VERTEBRALS: No stenosis/dissection. Left vertebral artery is slightly dominant. ANTERIOR CIRCULATION: Atherosclerosis both carotid siphons without hemodynamically significant stenosis. No central occlusion. No aneurysm identified. POSTERIOR CIRCULATION: No central hemodynamically significant stenosis or occlusion. No aneurysm identified. VENOUS STRUCTURES: Venous structures are not well characterized on this exam (performed arterial phase). OTHER: No suspicious neck soft tissue lesions identified. Variable loss of disc height with degenerative endplate hypertrophic change. No high-grade canal stenosis. Multilevel variable foraminal stenosis. No aggressive osseous lesion identified. Pulmonary emphysema partially visualized. IMPRESSION: CT HEAD 1. No evidence of acute intracranial process. CTA HEAD 1. No central hemodynamically significant stenosis or occlusion. CTA NECK 1. Scattered atherosclerosis without high-grade stenosis/dissection. This study was interpreted by an ABR certified radiologist with subspecialty training and additional board certification in neuroradiology. Please call [phone] with any questions. THIS DOCUMENT HAS BEEN ELECTRONICALLY SIGNED: NOAH ALBA MD 01/09/2025 21:42 MDT Contributed By: Procedure Note Noah Alba MD - 01/09/2025 COMPUTED TOMOGRAPHY OF THE HEAD WITHOUT CONTRAST, COMPUTED TOMOGRAPHY ANGIOGRAPHY OF THE HEAD AND NECK WITH INTRAVENOUS CONTRAST EXAM DATE AND TIME: 01/09/2025 21:06 MDT INDICATION: Transient ischemic attack. Dizziness. Near syncope. TECHNIQUE: CT images of the brain were acquired in the axial plane without contrast. Axial thin-slice helical computed tomographic data was acquired through the head and neck using 80 mL Isovue 370. Following an unenhanced topogram, IV contrast was injected without a reported adverse reaction. Postcontrast data was optimized specifically for visualization of the vascular anatomy and the acquired dataset was evaluated with computed reconstructions. Three-dimensional (volume-rendered/MIP/shaded surface rendering) reconstructions were postprocessed and evaluated in multiple projections on a cine workstation. Stenosis measurements were performed with reference to NASCET criteria utilizing electronic calipers on the radiology workstation. Dose reduction techniques were employed using one or more of the following: automated exposure control; adjustment of the mA and/or kV according to patient size; use of iterative reconstruction. COMPARISON: CT angiography head/neck 03/11/2023. FINDINGS: HEAD: INTRACRANIAL CONTENTS: No acute intracranial hemorrhage. No acute infarct identified by CT. No mass effect. No extra-axial collection. Minimal white matter presumed chronic microangiopathic ischemic changes again demonstrated. Mild cerebellar predominant volume loss again demonstrated. No hydrocephalus. CALVARIUM: No acute calvarial fractures. EXTRACRANIAL STRUCTURES: Retention cysts or polyps along the floors of bilateral maxillary sinuses. Minimal frontal and ethmoid mucosal thickening. Clear mastoid air cells. No suspicious orbit abnormality. CTA: AORTIC ARCH: Left-sided arch. Common origin of innominate and left common carotid artery. Minimal/scattered atherosclerotic plaque. No stenosis/dissection. CAROTIDS: Mild atherosclerotic plaque at bilateral carotid bifurcations. No stenosis/dissection. VERTEBRALS: No stenosis/dissection. Left vertebral artery is slightly dominant. ANTERIOR CIRCULATION: Atherosclerosis both carotid siphons without hemodynamically significant stenosis. No central occlusion. No aneurysm identified. POSTERIOR CIRCULATION: No central hemodynamically significant stenosis or occlusion. No aneurysm identified. VENOUS STRUCTURES: Venous structures are not well characterized on this exam (performed arterial phase). OTHER: No suspicious neck soft tissue lesions identified. Variable loss of disc height with degenerative endplate hypertrophic change. No high-grade canal stenosis. Multilevel variable foraminal stenosis. No aggressive osseous lesion identified. Pulmonary emphysema partially visualized. IMPRESSION: CT HEAD 1. No evidence of acute intracranial process. CTA HEAD 1. No central hemodynamically significant stenosis or occlusion. CTA NECK 1. Scattered atherosclerosis without high-grade stenosis/dissection. This study was interpreted by an ABR certified radiologist with subspecialty training and additional board certification in neuroradiology. Please call [phone] with any questions. THIS DOCUMENT HAS BEEN ELECTRONICALLY SIGNED: NOAH ALBA MD 01/09/2025 21:42 MDT Contributed By: Demian Otero NP CT ORDERABLES Final Resu lt * SST to Hold (01/09/2025 8:44 PM MDT) Pathologist [facility] Hold Bottles for Add-on Blood Culture Hold Tube for future add-on orders. 01/09/2025 10:45 PM MDT [facility] Blood VENOUS LINE / Unknown Venipuncture / Unknown 01/09/2025 8:44 PM MDT 01/09/2025 8:46 PM MDT Demian Otero NP LAB BLOOD ORDERABLES Final Result [facility] [address] [address], [facility] [phone] * Troponin I, 5th Gen (01/09/2025 8:43 PM MDT) Troponin I, 5th Generation <3 <=53 ng/L ng/L LAB IMMUNOLOGY METHOD 01/09/2025 9:14 PM MDT [facility] Comment: Troponin results should be interpreted in the context of all other available information. Troponin assay has changed from 4th Generation to 5th Generation and will be resulted in whole numbers (ng/L). The reference range has also changed to sex-specific cutoff values of 34 ng/l for females and 53 ng/L for males. If the baseline result is below the 99th percentile value, at least one additional blood sample should be drawn before results are interpreted as negative for AMI. Patients who present with signs and symptoms suggestive of ACS should have troponin results interpreted in conjunction with clinical presentation, HEART or PETER scores, EKG, imaging, etc. Baseline and serial troponin elevation for significant delta will assist the clinician in differentiating between ischemic and non-ischemic causes of myocardial injury. Biotin (Vitamin B7) can potentially interfere with troponin levels by causing false low results. Screen patients taking supplements containing Biotin greater than 300mg/day including vitamin supplements, [id number] supplements, and biotin supplements. Blood VENOUS LINE / Unknown Venipuncture / Unknown 01/09/2025 8:43 PM MDT 01/09/2025 8:46 PM MDT Demian Otero NP LAB BLOOD ORDERABLES Final Result Performing Organization Address City/State/[facility] Co de Phone Number [facility] [address] [address], [facility] [phone] * (ABNORMAL) Comprehensive Metabolic Panel (01/09/2025 8:43 PM MDT) Only the most recent of2 resultswithin the time period is included. Sodium 136 136 - 145 mmol/L LAB CHEMISTRY METHOD 01/09/2025 9:14 PM [facility] Potassium 4.0 3.4 - 5.1 mmol/L LAB CHEMISTRY METHOD 01/09/2025 9:14 PM [facility] Chloride 105 101 - 112 mmol/L LAB CHEMISTRY METHOD 01/09/2025 9:14 PM [facility] CO2 22 20 - 31 mmol/L LAB CHEMISTRY METHOD 01/09/2025 9:14 PM [facility] Anion Gap 9 5 - 15 mmol/L LAB CHEMISTRY METHOD 01/09/2025 9:14 PM [facility] BUN 17 9 - 23 mg/dL LAB CHEMISTRY METHOD 01/09/2025 9:14 PM [facility] Creatinine 1.03 0.70 - 1.30 mg/dL LAB CHEMISTRY METHOD 01/09/2025 9:14 PM [facility] eGFR 85 >=60 mL/min/1. 73 m2 LAB CHEMISTRY METHOD 01/09/2025 9:14 PM [facility] Comment: GFR < 60 suggests chronic kidney disease GFR < 15 suggests kidney failure Calculated using CKD-EPI (2020) equation, which has not been validated on patients <18 years of age. Race is no longer included as a factor. BUN/Creatinine Ratio 17 9 - 27 mg/mg LAB CHEMISTRY METHOD 01/09/2025 9:14 PM [facility] Glucose 196(H) 74 - 106 mg/dL LAB CHEMISTRY METHOD 01/09/2025 9:14 PM [facility] Comment: Random serum glucose over 200 mg/dL diagnostic of diabetes. Fasting glucose over 125 mg/dL diagnostic of diabetes. Calcium 9.2 8.7 - 10.4 mg/dL LAB CHEMISTRY METHOD 01/09/2025 9:14 PM [facility] Total Protein 7.4 5.7 - 8.2 g/dL LAB CHEMISTRY METHOD 01/09/2025 9:14 PM [facility] Albumin 4.6 3.9 - 5.1 g/dL LAB CHEMISTRY METHOD 01/09/2025 9:14 PM [facility] Globulin, Calculated 2.8 1.8 - 3.7 g/dL LAB CHEMISTRY METHOD 01/09/2025 9:14 PM [facility] Albumin/Globuli n Ratio 1.6 1.0 - 2.2 g/g LAB CHEMISTRY METHOD 01/09/2025 9:14 PM [facility] Alkaline Phosphatase 165(H) 46 - 116 U/L LAB CHEMISTRY METHOD 01/09/2025 9:14 PM [facility] ALT-SGPT 220(H) 10 - 49 U/L LAB CHEMISTRY METHOD 01/09/2025 9:14 PM [facility] AST-SGOT 148(H) <34 U/L LAB CHEMISTRY METHOD 01/09/2025 9:14 PM [facility] Bilirubin, Total 1.1 0.2 - 1.2 mg/dL LAB CHEMISTRY METHOD 01/09/2025 9:14 PM [facility] Blood VENOUS LINE / Unknown Venipuncture / Unknown 01/09/2025 8:43 PM MDT 01/09/2025 8:46 PM MDT us Demian Rodri Otero NP LAB BLOOD ORDERABLES Final Result [facility] [address] [address], [facility] [phone] * (ABNORMAL) CBC with Differential (01/09/2025 8:43 PM MDT) Only the most recent of2 resultswithin the time period is included. WBC 6.99 3.50 - 11.50 K/uL LAB HEMATOLOGY METHOD 01/09/2025 8:52 PM [facility] RBC 6.28(H) 4.30 - 6.10 M/uL LAB HEMATOLOGY METHOD 01/09/2025 8:52 PM [facility] Hemoglobin 18.1(H) 14.0 - 18.0 g/dL LAB HEMATOLOGY METHOD 01/09/2025 8:52 PM [facility] Hematocrit 53.6 40.0 - 54.0 % LAB HEMATOLOGY METHOD 01/09/2025 8:52 PM [facility] MCV 85 80 - 102 fL LAB HEMATOLOGY METHOD 01/09/2025 8:52 PM [facility] MCH 28.8 26.0 - 36.0 pg LAB HEMATOLOGY METHOD 01/09/2025 8:52 PM [facility] MCHC 33.8 30.0 - 37.0 g/dL LAB HEMATOLOGY METHOD 01/09/2025 8:52 PM [facility] RDW Coefficient of Variation 13.7 10.0 - 15.5 % LAB HEMATOLOGY METHOD 01/09/2025 8:52 PM [facility] Platelet Count 244 150 - 400 K/uL LAB HEMATOLOGY METHOD 01/09/2025 8:52 PM [facility] MPV 9.7 8.6 - 12.3 fL LAB HEMATOLOGY METHOD 01/09/2025 8:52 PM [facility] Nucleated RBC, Percent 0.0 <=0.0 /100 WBCs LAB HEMATOLOGY METHOD 01/09/2025 8:52 PM [facility] Neutrophil % 59.0 % LAB HEMATOLOGY METHOD 01/09/2025 8:52 PM [facility] Neutrophils, Absolute 4.12 2.00 - 8.00 K/uL LAB HEMATOLOGY METHOD 01/09/2025 8:52 PM [facility] Lymphocyte % 29.8 % LAB HEMATOLOGY METHOD 01/09/2025 8:52 PM [facility] Lymphocytes, Absolute 2.08 0.60 - 5.20 K/UL LAB HEMATOLOGY METHOD 01/09/2025 8:52 PM [facility] Monocyte % 8.7 % LAB HEMATOLOGY METHOD 01/09/2025 8:52 PM [facility] Monocytes, Absolute 0.61 0.00 - 1.00 K/uL LAB HEMATOLOGY METHOD 01/09/2025 8:52 PM [facility] Eosinophil % 1.0 % LAB HEMATOLOGY METHOD 01/09/2025 8:52 PM [facility] Eosinophils, Absolute 0.07 0.00 - 0.80 K/uL LAB HEMATOLOGY METHOD 01/09/2025 8:52 PM [facility] Basophil % 1.1 % LAB HEMATOLOGY METHOD 01/09/2025 8:52 PM [facility] Basophils, Absolute 0.08 0.00 - 0.20 K/UL LAB HEMATOLOGY METHOD 01/09/2025 8:52 PM [facility] Granulocytes, Immature, % 0.4 % LAB HEMATOLOGY METHOD 01/09/2025 8:52 PM [facility] Granulocyte, Immature, Absolute 0.03 0.00 - 0.09 K/UL LAB HEMATOLOGY METHOD 01/09/2025 8:52 PM [facility] Blood VENOUS LINE / Unknown Venipuncture / Unknown 01/09/2025 8:43 PM MDT 01/09/2025 8:46 PM MDT Demian Otero NP LAB BLOOD ORDERABLES Final Result [facility] [address] [address], [facility] [phone] * 12 Lead EKG (01/09/2025 8:33 PM MDT) Only the most recent of3 resultswithin the time period is included. 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1965 Requested By: DEMIAN OTERO Order Number: [id number] Reading MD: RUDY HUANG Measurements Intervals [place] Rate: 102 P: 54 [place]: 164 QRS: 23 QRSD: 88 T: 54 QT: 332 QTc: 434 Interpretive Statements Sinus tachycardia Low voltage in the limb lengths Compared to ECG 01/09/2025 14:02:14 The heart rate has increased Electronically Signed On 01-10-2025 17:36:26 MDT by RUDY HUANG Procedure Note Rudy Huang MD - 01/10/2025 [facility] Test Date: 2025-01-09 20:33:36 Pat Name: MANNY JEREZ Department: Room: ED30 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: M 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: [id number] : 1965 Requested By: DEMIAN OTERO Order Number: [id number] Reading : RUDY HUANG Measurements Intervals [place] Rate: 102 P: 54 [place]: 164 QRS: 23 QRSD: 88 T: 54 QT: 332 QTc: 434 Interpretive Statements Sinus tachycardia Low voltage in the limb lengths Compared to ECG 01/09/2025 14:02:14 The heart rate has increased Electronically Signed On 01-10-2025 17:36:26 MDT by RUDY HUANG us Demian Otero NP ECG/EKG ORDERABLES Final R esult LM EKG * Troponin I, 5th Gen, Subsequent (01/09/2025 2:03 PM MDT) Troponin I, 5th Generation <3 <=53 ng/L ng/L LAB IMMUNOLOGY METHOD 01/09/2025 2:30 PM [facility] Comment: Troponin results should be interpreted in the context of all other available information. Troponin assay has changed from 4th Generation to 5th Generation and will be resulted in whole numbers (ng/L). The reference range has also changed to sex-specific cutoff values of 34 ng/l for females and 53 ng/L for males. If the baseline result is below the 99th percentile value, at least one additional blood sample should be drawn before results are interpreted as negative for AMI. Patients who present with signs and symptoms suggestive of ACS should have troponin results interpreted in conjunction with clinical presentation, HEART or PETER scores, EKG, imaging, etc. Baseline and serial troponin elevation for significant delta will assist the clinician in differentiating between ischemic and non-ischemic causes of myocardial injury. Biotin (Vitamin B7) can potentially interfere with troponin levels by causing false low results. Screen patients taking supplements containing Biotin greater than 300mg/day including vitamin supplements, [id number] supplements, and biotin supplements. Absolute Troponin Delta LAB IMMUNOLOGY METHOD 01/09/2025 2:30 PM [facility] Comment:Unable to calculate. % Troponin Delta LAB IMMUNOLOGY METHOD 01/09/2025 2:30 PM [facility] Comment:Unable to calculate. Blood Venipuncture / Unknown 01/09/2025 2:03 PM MDT 01/09/2025 2:06 PM MDT Jenny Cool PA-C LAB BLOOD ORDERABL ES Final Result Performing Organization Address City/State/[facility] Co de Phone Number [facility] [id number] [address] [phone] * Troponin, 5th generation, baseline and 1 hour (01/09/2025 12:47 PM MDT) Troponin I, 5th Generation <3 <=53 ng/L ng/L LAB IMMUNOLOGY METHOD 01/09/2025 1:19 PM [facility] Comment: Troponin results should be interpreted in the context of all other available information. Troponin assay has changed from 4th Generation to 5th Generation and will be resulted in whole numbers (ng/L). The reference range has also changed to sex-specific cutoff values of 34 ng/l for females and 53 ng/L for males. If the baseline result is below the 99th percentile value, at least one additional blood sample should be drawn before results are interpreted as negative for AMI. Patients who present with signs and symptoms suggestive of ACS should have troponin results interpreted in conjunction with clinical presentation, HEART or PETER scores, EKG, imaging, etc. Baseline and serial troponin elevation for significant delta will assist the clinician in differentiating between ischemic and non-ischemic causes of myocardial injury. Biotin (Vitamin B7) can potentially interfere with troponin levels by causing false low results. Screen patients taking supplements containing Biotin greater than 300mg/day including vitamin supplements, yawp-wevw-[id number] supplements, and biotin supplements. Blood Venipuncture / Unknown 01/09/2025 12:47 PM MDT 01/09/2025 12:50 PM MDT us Jenny Cool PA-C LAB BLOOD ORDERABL ES Final Result Performing Organization Address City/State/[facility] Co de Phone Number [facility] [address] [id number], [facility] [phone] * XR Chest Portable 1 View (01/09/2025 12:45 PM MDT) Anatomical Region Laterality Modality Chest Computed Radiogr aphy 01/09/2025 1:16 PM MDT Narrative 01/09/2025 1:18 PM MDT CHEST PORTABLE RADIOGRAPH VIEWS: ONE EXAM DATE AND TIME: 01/09/2025 12:45 MDT INDICATION: Dizziness. COMPARISON: Radiograph May 2011. FINDINGS: Lungs: Linear opacity within the periphery of the left lung base which is thought to represent subsegmental atelectasis. No pleural effusion, central pulmonary edema, pneumonia, or pneumothorax. Mediastinum: Heart size is normal. The included aorta is normal. Bones: Mild levoscoliosis of the midthoracic spine. Support Catheters: None. IMPRESSION: Left basilar subsegmental atelectasis. THIS DOCUMENT HAS BEEN ELECTRONICALLY SIGNED: BRIAN JASSO MD 01/09/2025 13:18 MDT Contributed By: Procedure Note Brian Jasso MD - 06/18/2025 CHEST PORTABLE RADIOGRAPH VIEWS: ONE EXAM DATE AND TIME: 01/09/2025 12:45 MDT INDICATION: Dizziness. COMPARISON: Radiograph May 2011. FINDINGS: Lungs: Linear opacity within the periphery of the left lung base which is thought to represent subsegmental atelectasis. No pleural effusion, central pulmonary edema, pneumonia, or pneumothorax. Mediastinum: Heart size is normal. The included aorta is normal. Bones: Mild levoscoliosis of the midthoracic spine. Support Catheters: None. IMPRESSION: Left basilar subsegmental atelectasis. THIS DOCUMENT HAS BEEN ELECTRONICALLY SIGNED: BRIAN JASSO MD 01/09/2025 13:18 MDT Contributed By: Jenny Cool PA-C DIAGNOSTIC IMAGING ORDERABLES Final Result * CT ANGIOGRAPHY CHEST PE (08/31/2018 5:40 PM [facility]) Anatomical Region Laterality Modality vascular Computed Tomogra phy 08/31/2018 5:52 PM [facility] Narrative 08/31/2018 6:10 PM [facility] EXAMINATION: CT ANGIOGRAPHY CHEST PERFORMED: 08/31/2018 17:40 CLINICAL INDICATION: 53 years, Male, SOB, unexplained tachycardia. COMPARISON: CT abdomen pelvis 420 9:18 AM 11/15/2017 TECHNIQUE: Helical CT angiography of the chest following the administration of 100 mL Omnipaque 350 IV, for evaluation of pulmonary emboli. Sagittal and coronal MIP re-formations were subsequently performed. All CT scans at this location are performed using dose optimization techniques as appropriate to a performed exam to include one of the following: automated exposure control, or adjustment of the mA according to patient size (this includes techniques or standardized protocols for targeted exams where dose is matched to indicate/reason for exam; i.e. extremities or head.) FINDINGS: Pulmonary embolism: Overall exam quality is suboptimal. Pulmonary arterial enhancement is suboptimal within the main pulmonary artery respiratory suspension is optimal. Heterogeneous appearance of contrast within the main pulmonary artery is favored to be related to admixture of contrast/phase of contrast, rather than pulmonary embolus. Otherwise, the pulmonary arteries are homogeneously opacified without filling defect. Heart and pericardium: Heart size is normal. No right heart strain. No pericardial effusion. Aorta: Thoracic aorta is normal. Chest wall and lower neck: Normal Lymphadenopathy: No axillary, mediastinal, or hilar lymphadenopathy. Lungs/Pleura: Mild paraseptal emphysematous changes within the lung apices. Calcified pulmonary nodule in the right upper lobe, likely related to prior granulomatous disease. No pleural effusion or pneumothorax. Upper abdomen: Limited evaluation of the upper abdomen demonstrate changes of prior cholecystectomy. Bilateral renal cysts. Additional smaller hypoattenuating lesion in the right kidney is too small to characterize. Kelvin hepatis lymph nodes, stable when compared to CT 11/15/2013. Musculoskeletal: No suspicious lytic or blastic osseous lesion. Convex right curvature of the thoracic spine. Other: None. IMPRESSION: 1. Heterogeneous appearance of the contrast bolus within the main pulmonary artery is favored to be related to admixture of contrast. Otherwise, the pulmonary arteries are well opacified with contrast with no filling defect. If there is continued clinical concern, could consider lower extremity ultrasound for further evaluation. 2. Mild paraseptal emphysema. 3. Additional findings as above. Procedure Note Grisel Rico MD - 08/31/2018 EXAMINATION: CT ANGIOGRAPHY CHEST PERFORMED: 08/31/2018 17:40 CLINICAL INDICATION: 53 years, Male, SOB, unexplained tachycardia. COMPARISON: CT abdomen pelvis 420 9:18 AM 11/15/2017 TECHNIQUE: Helical CT angiography of the chest following the administration of 100 mL Omnipaque 350 IV, for evaluation of pulmonary emboli. Sagittal and coronal MIP re-formations were subsequently performed. All CT scans at this location are performed using dose optimization techniques as appropriate to a performed exam to include one of the following: automated exposure control, or adjustment of the mA according to patient size (this includes techniques or standardized protocols for targeted exams where dose is matched to indicate/reason for exam; i.e. extremities or head.) FINDINGS: Pulmonary embolism: Overall exam quality is suboptimal. Pulmonary arterial enhancement is suboptimal within the main pulmonary artery respiratory suspension is optimal. Heterogeneous appearance of contrast within the main pulmonary artery is favored to be related to admixture of contrast/phase of contrast, rather than pulmonary embolus. Otherwise, the pulmonary arteries are homogeneously opacified without filling defect. Heart and pericardium: Heart size is normal. No right heart strain. No pericardial effusion. Aorta: Thoracic aorta is normal. Chest wall and lower neck: Normal Lymphadenopathy: No axillary, mediastinal, or hilar lymphadenopathy. Lungs/Pleura: Mild paraseptal emphysematous changes within the lung apices. Calcified pulmonary nodule in the right upper lobe, likely related to prior granulomatous disease. No pleural effusion or pneumothorax. Upper abdomen: Limited evaluation of the upper abdomen demonstrate changes of prior cholecystectomy. Bilateral renal cysts. Additional smaller hypoattenuating lesion in the right kidney is too small to characterize. Kelvin hepatis lymph nodes, stable when compared to CT 11/15/2013. Musculoskeletal: No suspicious lytic or blastic osseous lesion. Convex right curvature of the thoracic spine. Other: None. IMPRESSION: 1. Heterogeneous appearance of the contrast bolus within the main pulmonary artery is favored to be related to admixture of contrast. Otherwise, the pulmonary arteries are well opacified with contrast with no filling defect. If there is continued clinical concern, could consider lower extremity ultrasound for further evaluation. 2. Mild paraseptal emphysema. 3. Additional findings as above. us Rito Valdivia DO CT ORDERABLES Final Resu lt from Last 3 Months or Most Recently Relevant to Health Maintenance Insurance [place] [employer]ICA[employer] Advance Directives * Full Code (Latest Code Status on File) Date Activated Date Inactivated Comments 09/07/2024 5:24 PM 09/08/2024 1:19 PM * Full Code Date Activated Date Inactivated Comments 11/15/2017 3:58 PM 11/17/2017 11:31 AM Care Teams Outpatient Coordinator Relationship Specialty Start Date End Date Erika Ahumada NP [address] [place] [address] PCP - General Family Medicine 08/23/24
--- OUTSIDE RECORDS SUMMARY | 2025-02-06 19:07 | XMS_ITS | Continuity of Care Document ---
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 Name Role Phone Ericka Fisher PA-C Unavailable Unavailab le Allergies, Adverse Reactions, Alerts Substance Reaction Status Criticality No Known Allergies Active No Inform ation Medications Medication Instructions Dosage Effective Dates (start - stop) Status Comments Lisinopril 40MG TABS TAKE 1 TABLET BY MOUTH DAILY - Active Tamsulosin HCl 0.4MG CAPS TAKE 1 CAPSULE BY MOUTH DAILY 1/2 HOUR FOLLOWING THE SAME MEAL EACH DAY - Active Omeprazole 40MG CPDR TAKE 1 CAPSULE BY MOUTH DAILY BEFORE A MEAL - Active metFORMIN HCl 1000MG TABS* TAKE 1 TABLET BY MOUTH TWICE A DAY WITH MORNING AND EVENING MEALS - Active True Metrix Blood Glucose Test STRP USE TO TEST BLOOD SUGAR DAILY - Active TRUEplus Lancets 33G MISC* USE TO CHECK BLOOD SUGAR ONCE DAILY - Active Blood Glucose Monitoring kit use to check blood sugar once daily - Active brand ok per insurance [employer] MISCELL MISCELL crutch. use daily for ambulation - Active alcohol swabs use to clean finger prior to checking blood sugar - Active lancets 30 gauge use to check blood sugar once daily - Active brand ok per insurance albuterol sulfate HFA 90 mcg/actuation aerosol inhaler inhale 2 puff by inhalation route every 4 - 6 hours as needed - Active ondansetron 4 mg disintegrating tablet Take 1 tablet (4 mg total) by mouth every 6 (six) hours as needed for nausea or vomiting. - Active Advance Directives Directive Yes / No Effective Date File Name No Information Encounters Encounter Description Practice Location Reason(s) For Visit Diagnoses Date Provider [facility], [address] [place] [address], [id number] , tel:+ [phone] [id number] No Information 3 Neukirch Ericka. [address] [place] [address], [id number], . tel:[phone] [place] [address], [address] [place] [address], [id number] , tel:[phone] [id number] No Information 3 [facility]. [address] [place] [address], [id number]. tel:[phone] [facility], [address] [place] [address], [id number] , tel:+ [phone] [id number] No Information 3 Neukirch Ericka. [address] [place] [address], [id number], . tel:[phone] [facility], [address] [place] [address], [id number] , tel:+ [phone] [id number] No Information 3 Neukirch Ericka. [address] [place] [address], [id number], . tel:[phone] [facility], [address] [place] [address], [id number] , tel:[phone] [id number] No Information 3 Kleeman Tiffany. [address] [place] [address], [id number]. tel:[phone] [place] [address], [address] [place] [address], [id number] , tel:+ [phone] [id number] Hepatitis C 2 Angel Allen. [address] [place] [address], [id number]. tel:[phone] [place] [address], [address] [place] [address], [id number] , tel:[phone] [facility] Bipolar disorder, current episode depressed, moderateAmphetamine or other stimulant use disorder, mild, with amphetamine or other stimulant intoxication, without perceptual disturbancesADHD combined type 2 Vitaly Tavares. [address] [place] [address], [id number]. tel:[phone] [place] [address], [address] [place] [address], [id number] , tel: [phone] [id number] diabetes (chief complaint) Dizziness (chief complaint) bipolar (chief complaint) Type 2 diabetes mellitus without complicationsHypertensionSui cidal ideationsNicotine dependence, cigarettes, uncomplicatedDizzinessConfus ionBipolar disorder, unspecified 2 Angel Allen. [address] [place] [address], [id number]. tel:[phone] [address] [place] [address], [address] [place] [address], [id number] , tel: [phone] [id number] No Information 2 Natalia Barnett. [address] [place] [address], [id number], . tel:[phone] [place] [address], [address] [place] [address], [id number] , tel:[phone] [id number] ER F/U (chief complaint) DehydrationDietary counselingBody mass index [BMI] 27.0-27.9, adultOverweightLong term use of oral antidiabetic drugs 2 Natalia Barnett. [address] [place] [address], [id number], . tel:[phone] [place] [address], [address] [place] [address], [id number] , tel:[phone] [facility] No Information 2 Natalia Barnett. [address] [place] [address], [id number], . tel:[phone] [place] [address], [address] [place] [address], [id number] , tel:[phone] [facility] feels weak and shakey (chief complaint) DehydrationLong term use of oral antidiabetic drugsOther local company intermodal truck driver (current) drug therapy 2 Elmer Schreiber. [address] [place] [address], [id number], . tel:[phone] [facility], [address] [place] [address], [id number] , tel:[phone] [place] [address] diabetes (chief complaint) dizziness (chief complaint) DizzinessBody mass index [BMI] 28.0-28.9, adultLong term use of oral antidiabetic drugsType 2 diabetes mellitus without complicationsOverweightDieta ry counselingOther correction (current) drug therapy 2 Natalia Barnett. [address] [place] [address], [id number], . tel:[phone] [place] [address], [address] [place] [address], [id number] , tel:[phone] [facility] Dizziness (chief complaint) DizzinessHypoglycemiaHyperte nsionType 2 diabetes mellitus without complicationsOverweightLong term use of oral antidiabetic drugsNicotine dependence, cigarettes, uncomplicatedOther local company intermodal truck driver (current) drug therapyDietary counselingScreening for lung cancer 2 Faye Torres. [address] [place] [address], [id number], . tel:[phone] [facility], [address] [place] [address], [id number] , [place] tel:[phone] [id number] Encounter for screen ing for cancer of colon 2 Neukirch Ericka. [facility] [address] [place] [address], [id number], [place]. tel:[phone] [facility], [address] [place] [address], [id number] , [place] tel:[phone] [id number] No Information 2 Neukirch Ericka. [address] [place] [address], [id number], [place]. tel:[phone] [facility], [address] [place] [address], [id number] , [place] tel:[phone] [id number] ER F/U (chief complaint) Pain in left kneeMultiple fractures of ribs, right side, init for clos fxDietary counselingBody mass index [BMI] 29.0-29.9, adultOverweight 2 Neukirch Ericka. [address] [place] [address], [id number], [place]. tel:[phone] [facility], [address] [place] [address], [id number] , [place] tel:[phone] [id number] Hepatitis C 2 Neukirch Ericka. [address] [place] [address], [id number], [place]. tel:[phone] [facility], [address] [place] [address], [id number] , [place] tel:+ [phone] [id number] Hypertension 2 Neukirch Ericka. [facility] [address] [place] [address], [id number], [place]. tel:[phone] [facility], [address] [place] [address], [id number] , [place] tel:+ [phone] [id number] Abnormal results of liver function studies 2 [facility]. [facility] [place] [address], [id number], . tel:[phone] [place] [address], [address] [place] [address], [id number] , tel: [phone] [address] (chief complaint) Urinary frequencyType 2 diabetes mellitus without complicationsEncounter for screening for lipoid disordersGERD w/o esophagitisHypertensionBipol ar disorderBody mass index [BMI] 29.0-29.9, adultOverweightDietary counselingOther correction (current) drug therapyLong term use of oral antidiabetic drugsWheezingTobacco use disorder, severe 2 [facility]. [address] [place] [address], [id number], . tel:[phone] [place] [address], [facility] [place] [address], [id number] , tel:[phone] [place] [address] F/U Albaro Jacobson (chief complaint) Major depressv disorder, recurrent severe w/o psych featuresBody mass index (BMI) 28.0-28.9, adultBipolar disorder, unspecified 7 No Information [facility], [facility] [address] [place] [address], [id number] , tel:[phone] [facility] No Information 6 No Information Family History Family Member Type Diagnosis Age At Onset Mother Problem Diabetes mellitus Mother Problem Hypertension Immunizations Vaccine Date Status Comments SARS-COV-2 (COVID-19) vaccin e, mRNA, spike protein, LNP, preservative free, 30 mcg/0.3mL dose (Pfizer) administered Source: Other Registry SARS-COV-2 (COVID-19) vaccin e, mRNA, spike protein, LNP, preservative free, 30 mcg/0.3mL dose ([place]) administered Source: Other Registry Payers Payer name Insurance type Covered libertarian ID Authoriza tion(s) No Information Social History Type Description Quantity Date Captured Comments Sex Male Smoking Status No Information Sexual Orientation Straight or heterosexual Gender Identity Male Chief Complaint And Reason For Visit No Information Plan Of Treatment Date Type Action Status Goal ASCVD 10 year risk. Due on due Goal GFR. Due on due Goal Hemoglobin A1C. Due on due Goal Hep B (). Due on due Goal FIT. Due on due Goal Hepatitis C screening due Goal Tdap. Due on due Goal Colonoscopy. Due on due Goal Zoster vaccine (). Due on due Goal FIT-DNA. Due on due Goal Td vaccine. Due on due Goal Unhealthy drug use screening due Goal FOBT. Due on due Goal Lipid panel. Due on 023 due Goal Influenza vaccine. Due on due Goal Pneumococcal vaccine. Due on due Goal Depression screening. Due on due Goal Foot exam. Due on 3 due Goal Urine microalbumin. Due on due Goal Zoster vaccine (). Due on due Goal Unhealthy drug use screening due Goal Hep B (). Due on due Goal Foot exam. Due on 3 due Goal GFR. Due on due Goal ASCVD 10 year risk. Due on due Goal Urine microalbumin. Due on due Goal Hepatitis C screening due Goal FIT. Due on due Goal Tdap. Due on due Goal FOBT. Due on due Goal FIT-DNA. Due on due Goal Td vaccine. Due on due Goal Colonoscopy. Due on due Goal Lipid panel. Due on due Goal Influenza vaccine. Due on due Goal Pneumococcal vaccine. Due on due Goal Depression screening. Due on due Goal Hemoglobin A1C. Due on due Goal Lipid panel. Due on due Goal Depression screening. Due on due Goal ASCVD 10 year risk. Due on due Goal Tdap. Due on due Goal Hepatitis C screening due Goal FIT. Due on due Goal Hemoglobin A1C. Due on due Goal Foot exam. Due on due Goal GFR. Due on due Goal Hep B (1st). Due on due Goal FOBT. Due on due Goal FIT-DNA. Due on due Goal Zoster vaccine (). Due on due Goal Unhealthy drug use screening due Goal Td vaccine. Due on due Goal Colonoscopy. Due on due Goal Pneumococcal vaccine. Due on due Goal Influenza vaccine. Due on due Goal Urine microalbumin. Due on due Goal Tobacco cessation counseling completed Goal Hep B (). Due on due Goal Foot exam. Due on due Goal GFR. Due on due Goal Urine microalbumin. Due on A due Goal ASCVD 10 year risk. Due on A due Goal Hemoglobin A1C. Due on due Goal Td vaccine. Due on due Goal FIT. Due on due Goal FOBT. Due on due Goal Zoster vaccine (). Due on due Goal Unhealthy drug use screening due Goal CT-Colonography. Due on due Goal Hepatitis C screening due Goal Sigmoidoscopy. Due on due Goal FIT-DNA. Due on due Goal Tdap. Due on due Goal Influenza vaccine. Due on due Goal Pneumococcal vaccine. Due on due Goal Colonoscopy. Due on due Goal Lipid panel. Due on due Goal Depression screening. Due on due Goal Dietary management education , guidance, and counseling completed Goal Tobacco cessation counseling completed Goal FOBT. Due on due Goal FIT. Due on due Goal Depression screening. Due on due Goal Tdap. Due on due Goal Lipid panel. Due on due Goal Influenza vaccine. Due on due Goal Pneumococcal vaccine. Due on due Goal ASCVD 10 year risk. Due on A due Goal GFR. Due on due Goal Hep B (). Due on due Goal Foot exam. Due on due Goal Hemoglobin A1C. Due on due Goal Urine microalbumin. Due on A due Goal Colonoscopy. Due on due Goal Td vaccine. Due on due Goal FIT-DNA. Due on due Goal Zoster vaccine (). Due on due Goal Hepatitis C screening due Goal Sigmoidoscopy. Due on due Goal Unhealthy drug use screening due Goal CT-Colonography. Due on due Goal Depression screening. Due on due Goal Influenza vaccine. Due on due Goal Lipid panel. Due on due Goal Pneumococcal vaccine. Due on due Goal Tdap. Due on due Goal Zoster vaccine (). Due on due Goal FIT-DNA. Due on due Goal Unhealthy drug use screening due Goal Hepatitis C screening due Goal Colonoscopy. Due on due Goal FIT. Due on due Goal FOBT. Due on due Goal CT-Colonography. Due on due Goal Foot exam. Due on due Goal Hemoglobin A1C. Due on due Goal ASCVD 10 year risk. Due on A due Goal Urine microalbumin. Due on A due Goal Hep B (). Due on due Goal GFR. Due on due Goal Sigmoidoscopy. Due on due Goal Td vaccine. Due on due Goal FIT-DNA. Due on due Goal FIT. Due on due Goal Lipid panel. Due on due Goal Pneumococcal vaccine. Due on due Goal Influenza vaccine. Due on due Goal FOBT. Due on due Goal Colonoscopy. Due on due Goal Tdap. Due on due Goal Td vaccine. Due on due Goal Sigmoidoscopy. Due on due Goal Unhealthy drug use screening due Goal CT-Colonography. Due on due Goal Zoster vaccine (). Due on due Goal Hepatitis C screening due Goal Depression screening. Due on due Goal Hemoglobin A1C. Due on due Goal Foot exam. Due on due Goal ASCVD 10 year risk. Due on due Goal GFR. Due on due Goal Hep B (). Due on due Goal Urine microalbumin. Due on due Goal Tobacco cessation counseling completed Goal Dietary management education , guidance, and counseling completed Goal ASCVD 10 year risk. Due on due Goal FIT-DNA. Due on due Goal FOBT. Due on due Goal Hepatitis C screening due Goal CT-Colonography. Due on due Goal Unhealthy drug use screening due Goal Td vaccine. Due on due Goal Sigmoidoscopy. Due on due Goal Zoster vaccine (). Due on due Goal Tdap. Due on due Goal Urine microalbumin. Due on due Goal Foot exam. Due on 3 due Goal Colonoscopy. Due on due Goal FIT. Due on due Goal Influenza vaccine. Due on due Goal Depression screening. Due on due Goal Pneumococcal vaccine. Due on due Goal Lipid panel. Due on due Goal GFR. Due on due Goal Hep B (). Due on due Goal Hemoglobin A1C. Due on due Goal Tobacco cessation counseling completed Goal GFR. Due on due Goal Urine microalbumin. Due on A due Goal Hep B (). Due on due Goal Hemoglobin A1C. Due on due Goal ASCVD 10 year risk. Due on A due Goal Foot exam. Due on 3 due Goal Td vaccine. Due on due Goal Zoster vaccine (). Due on due Goal Pneumococcal vaccine. Due on due Goal Lipid panel. Due on due Goal Depression screening. Due on due Goal Influenza vaccine. Due on due Goal FIT. Due on due Goal Sigmoidoscopy. Due on due Goal Unhealthy drug use screening due Goal CT-Colonography. Due on due Goal Tdap. Due on due Goal FOBT. Due on due Goal FIT-DNA. Due on due Goal Hepatitis C screening due Goal Foot exam. Due on due Goal Hep B (). Due on due Goal Hemoglobin A1C. Due on due Goal GFR. Due on due Goal Urine microalbumin. Due on due Goal ASCVD 10 year risk. Due on due Goal CT-Colonography. Due on due Goal Td vaccine. Due on due Goal Colonoscopy. Due on due Goal FIT-DNA. Due on due Goal FIT. Due on due Goal Zoster vaccine (). Due on due Goal FOBT. Due on due Goal Unhealthy drug use screening due Goal Tdap. Due on due Goal Sigmoidoscopy. Due on due Goal Hepatitis C screening due Goal Influenza vaccine. Due on due Goal Pneumococcal vaccine. Due on due Goal Lipid panel. Due on 023 due Goal Depression screening. Due on due Goal Tobacco cessation counseling completed Goal Dietary management education , guidance, and counseling completed Goal FOBT. Due on due Goal Colonoscopy. Due on due Goal Unhealthy drug use screening due Goal CT-Colonography. Due on due Goal Hep B (). Due on due Goal ASCVD 10 year risk. Due on due Goal Foot exam. Due on due Goal Hemoglobin A1C. Due on due Goal GFR. Due on due Goal Urine microalbumin. Due on due Goal Hepatitis C screening due Goal Sigmoidoscopy. Due on due Goal Zoster vaccine (). Due on due Goal FIT-DNA. Due on due Goal FIT. Due on due Goal Influenza vaccine. Due on Sd due Goal Depression screening. Due on due Goal Lipid panel. Due on 023 due Goal Pneumococcal vaccine. Due on due Goal Tdap. Due on due Goal Td vaccine. Due on due Goal Depression screening. Due on due Goal Pneumococcal vaccine. Due on due Goal Lipid panel. Due on 023 due Goal Zoster vaccine (1st). Due on due Goal FOBT. Due on due Goal FIT-DNA. Due on due Goal Influenza vaccine. Due on Sd due Goal Foot exam. Due on due Goal ASCVD 10 year risk. Due on due Goal GFR. Due on due Goal Urine microalbumin. Due on due Goal Hemoglobin A1C. Due on due Goal Hep B (). Due on due Goal Colonoscopy. Due on due Goal Sigmoidoscopy. Due on due Goal Td vaccine. Due on due Goal Tdap. Due on due Goal Hepatitis C screening due Goal Unhealthy drug use screening due Goal CT-Colonography. Due on due Goal FIT. Due on due Goal Lipid panel. Due on due Goal Depression screening. Due on due Goal Pneumococcal vaccine. Due on due Goal Influenza vaccine. Due on due Goal FIT-DNA. Due on due Goal Unhealthy drug use screening due Goal FIT. Due on due Goal Tdap. Due on due Goal Td vaccine. Due on due Goal CT-Colonography. Due on due Goal Zoster vaccine (). Due on due Goal Sigmoidoscopy. Due on due Goal FOBT. Due on due Goal Colonoscopy. Due on due Goal Urine microalbumin. Due on due Goal GFR. Due on due Goal Hemoglobin A1C. Due on due Goal Foot exam. Due on 3 due Goal Hep B (). Due on due Goal ASCVD 10 year risk. Due on due Goal ASCVD 10 year risk. Due on due Goal GFR. Due on due Goal Hemoglobin A1C. Due on due Goal Urine microalbumin. Due on due Goal Foot exam. Due on 3 due Goal Hep B (). Due on due Goal Hepatitis C screening. Due o n due Goal Colonoscopy. Due on due Goal FOBT. Due on due Goal Sigmoidoscopy. Due on due Goal Influenza vaccine. Due on due Goal Zoster vaccine (1st). Due on due Goal Pneumococcal vaccine. Due on due Goal CT-Colonography. Due on due Goal Td vaccine. Due on due Goal Tdap. Due on due Goal FIT. Due on due Goal Depression screening. Due on due Goal Unhealthy drug use screening due Goal FIT-DNA. Due on due Goal Lipid panel. Due on 022 due Goal Tobacco cessation counseling completed Goal Dietary management education , guidance, and counseling completed Goal Lifestyle education regardin g diet completed Referral Ordered: Referrals: Gastroenterology. Evaluate and treat ordered Referral Ordered: CT HEAD/BRAIN W/O & W/DYE ordered Referral Ordered: Colonoscopy, Complete to Cecum ordered Referral Ordered: Referrals: Orthopedic Surgery. Consult Appointment date/timeframe: 10/15/2021 ordered Referral Ordered: Referrals: Gastroenterology. Consult ordered Referral Ordered: Referrals: Pulmonology. Consult ordered History Of Present Illness Encounter Date Complaint History Of Prese nt Illness depression Dizziness Onset was 3 ramón hs ago. The problem is worsening. It occurs persistently. The client describes it as (an) light-headed and spinning. Symptom is aggravated by rapid rise. Relieving factors include rest. Pertinent negatives include chest pain, fever, hearing loss, nausea, palpitations, slurred speech and tinnitus. Additional information: denies any SOB, chest pain, tachycardic again on exam today. bipolar The symptoms are reported as being severe. The symptoms occur constantly. The client states the symptoms are chronic. worsening symptoms. He has had SI, no plans currently, did try to overdose on pills recently. Not currently on any medications for bipolar/depression. Looks like previously on Latuda in the past, he mentioned he was on Vyvanse? as well. He states earliest he could get into psych was in October at [facility]? Has not tried to get into LFS yet. He is currently homeless. He states his memory is very poor, confusion has caused him to lose his job and become homeless. diabetes The problem is s table. Client is compliant with using medication. Client did not return for a follow-up. Managing with: Oral medications. Comorbidity: Hypertension. Associated symptoms include: increased fatigue. Pertinent negatives include chest pain, dysesthesias, dyspnea, urinary frequency, hypoglycemic episodes, polydipsia, weight gain and weight loss. Additional information: decreased appetite and confusion.. ER F/U Patient presents to the clinic today for ER f/u. He was seen in the ER on 03/08 just feeling generally weak. He has had dizziness and lightheadedness. He works outside so had been in the heat a lot. He reported carrying something heavy up some steps the day prior and he about passed out. His vision was going black and white and black and white. He denies any blood in the stool. He does not drink alcohol. No fevers chills chest pain or shortness of breath. Bp was 80s/60s upon arrival and he was tachycardic. He was given 2 L of IV fluids. Heart rate and blood pressure improved. Potassium slightly low. Liver labs elevated, chronically. He was given Zofran for nausea and encouraged to drink plenty of fluids.He states that he hasn't been able to work outside due to how he has been feeling. States he has been trying to drink more fluids and is drinking 1-2 Gatorades per day. States he does not like water. He wonders why his BP was low in the ER. He does take Farxiga for his diabetes. Denies chest pain. Still needs to get colonoscopy scheduled. 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 He feels like just wants to lie down. Feels weak and dizzy since yesterday. Denies any shortness of breath, chest pain or chest pressure. denies any abdominal pain, nausea, vomiting or diarrhea. Denies any fever or chills. Comments: Taking all medications as prescribed. Gets exercise in at work. Reports eating healthy meals. Comments: Report s drinking one Gatorade per day. Does not drink much water. dizziness Onset was 2 ramón hs ago. It occurs occasionally. The client describes it as (an) light-headed. Pertinent negatives include chest pain, fever, hearing loss, nausea and palpitations. Additional information: States symptoms worse in warm weather. Denies LOC, chest pain. Blood glucose is never low when experiencing these episodes. diabetes The problem is i mproving. Client is compliant with using medication, and follow-up. Managing with: Oral medications. Comorbidity: Hypertension. Associated symptoms include: dyspnea and hypoglycemic episodes. Pertinent negatives include chest pain, urinary frequency and polydipsia. Additional information: Checks blood sugar at home. 145 this morning, not fasting. Experiences shakiness 2-3 X/ month. Two weeks ago and reported to clinic with shakiness and blood glucose of 40.. Dizziness Onset was 2 days ago. The problem is acute. It occurs intermittently. The client describes it as (an) light-headed. Relieving factors include rest. Associated symptoms include weakness. Pertinent negatives include chest pain, fever, hearing loss, loss of consciousness, nausea, otalgia, palpitations, seizures, slurred speech, tinnitus and vomiting. Additional information: Started when he was working in the heat 2 days ago. Denies injury. States this has continued to occur. Reports he ate breakfast at 6am but nothing since. ER F/U Patient presents to the clinic today for ER f/u. He was seen in ED on 10/06/21 at [facility] after a fall down 2 [address]. He reported it happened 45 minutes prior to arrival in ED. He had pain in his right chest and left knee. He reported feeling like his knee cap was out of place, but per ER note that had resolved. He had x-ray of L knee which showed no acute process. Rib x-ray did demonstrate 2 right sided rib fractures. He was discharged home with [facility]field.Patient states he continues to have a lot of pain. States it is painful with his ribs, especially when he coughs. He states his knee is very painful as well. He states he felt like his knee cap twisted all the way back during the fall and he had to move it back into place. He states the knee is swollen, but better than it used to be. He is ambulating with a crutch. He has pain with weight bearing and moving his knee. No other concerns today. Establish care Patient presents to the clinic today to establish care. He states he was being seen at [facility], but is switching to [facility] for PCP and [facility] for mental health. He states he has a history of diabetes and HTN. States he has been compliant with meds, but needs refills. He also takes Omeprazole for heartburn and Flomax for urinary issues. He states he does not have a blood sugar meter at home, but would like one. He does not recall when or what is last A1c was. He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
--- OUTSIDE RECORDS SUMMARY | 2025-02-06 19:07 | XMS_ITS | Encounter Summary ---
Author Organization [facility] Address [address], [place] [address] Care Team Providers Care Welfare Specialist Name Role Phone Grisel Morales COTTON HEADER Primary Care Provider Vida Block PA Primary Care Provider Marcela Erika Morales COTTON HEADER Primary Care Provider [phone] Darcy Young Unavailable Unavailable Darcy Young Unavailable Unavailable Darcy Young Unavailable Unavailable Encounter Details Date Type Department Care Team (Late st Contact Info) Description 01/10/2023 Telephone [facility] [address] [address] External, Physician [facility] Social History Tobacco Use Types Packs/Day Years [...] PHQ-2 Answer Date Recorded PHQ-2 SCORE 0 01/11/2023 Sex and Gender Information Value Date Recorded Sex Assigned at Male 02/15/2020 8:24 AM MDT Legal Sex Male 5:24 AM MST Gender Identity Male 02/15/2020 8:24 AM MDT Sexual Orientation Straight 02/15/2020 8: 32 AM MDT documented as of this encounter Progress Notes * External, Physician - 01/10/2023 8:45 PM MDT Provider Call Reason for call: Upcoming Outcome of call: Answered Additional Notes: Spoke to gabe Duncan forward message to PCP in regards to recommended Chest CT. ARG Provider Name: Grisel Morales documented in this encounter Plan of Treatment Upcoming Encounters Date Type Department Care Team (Late st Contact Info) Description 02/08/2025 9:00 AM MDT Office Visit [facility] [address] [place] [id number] [address] [facility] [place] documented as of this encounter Visit Diagnoses Not on filedocumented in this encounter Additional Health Concerns Infection Onset Date Last Indicated Resolved Time Enhanced Respiratory Results Pending 03/17/2024 03/17/2024 03/17/2024 11:30 AM MDT Assessment Noted Time PHQ-2 Depression Total Score: 0 12/30/19 3:14 PM MDT documented as of this encounter Care Teams Welfare Specialist Relationship Specialty Start Date End Date Grisel Morales NP PCP - General Nurse Practitioner 02/15/20 05/12/23 Vida Block PA PCP - General Physician [employer] 05/13/23 04/02/24 Erika Ahumada NP [address] [address] PCP - General 04/03/24 [facility] [employer] General Manager (service) 04/06/24 04/06/24 [facility] [employer] General Manager (dept) 04/11/24 04/11/24 [facility] [place] [employer] General Manager (service) 06/25/24 06/25/24 documented as of this encounter
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
--- OUTSIDE RECORDS SUMMARY | 2025-02-06 19:07 | XMS_ITS | Referral Summary ---
Author Organization [facility] Address [address] [place] [address], [address] [place] [address] Care Team Providers Care Medical Assistant Instructor Name Role Phone Erika Ahumada NP Primary Care Provider [phone] Source Comments [facility] (Labor and Delivery) documents do not appear in the Encounter Summary [facility] Encounters Date Type Department Care Team Description 01/09/2025 8:12 PM MDT - 01/09/2025 10:23 PM MDT Emergency [facility] [address] [address] Adina Aguilar MD Discharge Disposition: Home or Self Care 01/09/2025 12:24 PM MDT - 01/09/2025 3:58 PM MDT Emergency [facility] [address] [address] Mee Amaya MD Discharge Disposition: Left Against Medical Advice from Last 3 Months Allergies No known active allergies Medications * [...] at bedtime 10 mL 09/08/2024 10:47 AM MST 09/08/2024 Active Insulin Syringe-Needle U-100 (TRUEPLUS INSULIN) 0.3 mL 31 gauge x 5/16 syrg Use to inject insulin just under the skin at bedtime 100 each 09/08/2024 10:47 AM MST 09/08/2024 Active Blood-Glucose Meter Glucometer Test blood glucose once a day 1 each 09/08/2024 10:47 AM MST 09/08/2024 Active lancets (ONETOUCH DELICA PLUS LANCET) 33 gauge misc Test blood glucose once a day 100 each 09/08/2024 10:47 AM MST 09/08/2024 Active ONETOUCH VERIO TEST STRIPS glucose strips Test blood glucose once a day 50 each 09/08/2024 10:47 AM MST 09/08/2024 Active Active Problems Problem Noted Date Diagnosed Date RAUL (acute kidney injury) ([facility]) 09/08/2024 Gastroesophageal reflux disease without esophagi tis 09/08/2024 Hyperosmolar hyperglycemic state ([facility]) 09/07/2024 Hepatitis C Overview (09/08/2024): hep C Hypertension Social History Tobacco Use Types Packs/Day Years [...] any time in the past 12 m [facility], were you homeless or living in a senior care (including now)? No 09/07/2024 Financial Resource Strain [...] on file Legal Sex Male 8:00 AM [facility] Gender Identity Not on file Sexual Orientation [...] 01/09/2025 8:13 PM MDT Plan of Treatment Not on file Procedures [...] additional board certification in neuroradiology. Please call [phone] with any questions. THIS DOCUMENT HAS BEEN [...] additional board certification in neuroradiology. Please call [phone] with any questions. THIS DOCUMENT HAS BEEN ELECTRONICALLY SIGNED: NOAH ALBA MD 01/09/2025 21:42 MDT Contributed By: Demian Otero NP CT ORDERABLES Final Resu lt * SST to Hold (01/09/2025 8:44 PM MDT) Pathologist [facility] Hold Bottles for Add-on Blood Culture Hold Tube for future add-on orders. 01/09/2025 10:45 PM MDT [facility] Blood VENOUS LINE / Unknown Venipuncture / Unknown 01/09/2025 8:44 PM MDT 01/09/2025 8:46 PM MDT Demian Otero NP LAB BLOOD ORDERABLES Final Result [facility] [address] [address] [phone] * Troponin I, 5th Gen (01/09/2025 8:43 PM MDT) Troponin I, 5th Generation <3 <=53 ng/L ng/L LAB IMMUNOLOGY METHOD 01/09/2025 9:14 PM MDT [facility] Comment: Troponin results should be [...] Biotin greater than 300mg/day including vitamin supplements, msda-xbsa-gblu supplements, and biotin supplements. Blood VENOUS LINE / Unknown Venipuncture / Unknown 01/09/2025 8:43 PM MDT 01/09/2025 8:46 PM MDT Demian Otero NP LAB BLOOD ORDERABLES Final Result Performing Organization Address City/State/[facility] Co de Phone Number [facility] [address] [address] [phone] * (ABNORMAL) Comprehensive Metabolic Panel (01/09/2025 8:43 PM MDT) Only the most recent of2 resultswithin the time period is included. Sodium 136 136 - 145 mmol/L LAB CHEMISTRY METHOD 01/09/2025 9:14 PM [facility] Potassium 4.0 3.4 - 5.1 mmol/L LAB CHEMISTRY METHOD 01/09/2025 9:14 PM [facility] Chloride 105 101 - 112 mmol/L LAB CHEMISTRY METHOD 01/09/2025 9:14 PM [facility] CO2 22 20 - 31 mmol/L LAB CHEMISTRY METHOD 01/09/2025 9:14 PM [facility] Anion Gap 9 5 - 15 mmol/L LAB CHEMISTRY METHOD 01/09/2025 9:14 PM [facility] BUN 17 9 - 23 mg/dL LAB CHEMISTRY METHOD 01/09/2025 9:14 PM [facility] Creatinine 1.03 0.70 - 1.30 mg/dL LAB CHEMISTRY METHOD 01/09/2025 9:14 PM [facility] eGFR 85 >=60 mL/min/1. 73 m2 LAB CHEMISTRY METHOD 01/09/2025 9:14 PM [facility] Comment: GFR < 60 suggests chronic kidney disease GFR < 15 suggests kidney failure Calculated using CKD-EPI (2020) equation, which has not been validated on patients <18 years of age. Race is no longer included as a factor. BUN/Creatinine Ratio 17 9 - 27 mg/mg LAB CHEMISTRY METHOD 01/09/2025 9:14 PM [facility] Glucose 196(H) 74 - 106 mg/dL LAB CHEMISTRY METHOD 01/09/2025 9:14 PM [facility] Comment: Random serum glucose over 200 mg/dL diagnostic of diabetes. Fasting glucose over 125 mg/dL diagnostic of diabetes. Calcium 9.2 8.7 - 10.4 mg/dL LAB CHEMISTRY METHOD 01/09/2025 9:14 PM [facility] Total Protein 7.4 5.7 - 8.2 g/dL LAB CHEMISTRY METHOD 01/09/2025 9:14 PM [facility] Albumin 4.6 3.9 - 5.1 g/dL LAB CHEMISTRY METHOD 01/09/2025 9:14 PM [facility] Globulin, Calculated 2.8 1.8 - 3.7 g/dL LAB CHEMISTRY METHOD 01/09/2025 9:14 PM [facility] Albumin/Globuli n Ratio 1.6 1.0 - 2.2 g/g LAB CHEMISTRY METHOD 01/09/2025 9:14 PM [facility] Alkaline Phosphatase 165(H) 46 - 116 U/L LAB CHEMISTRY METHOD 01/09/2025 9:14 PM [facility] ALT-SGPT 220(H) 10 - 49 U/L LAB CHEMISTRY METHOD 01/09/2025 9:14 PM [facility] AST-SGOT 148(H) <34 U/L LAB CHEMISTRY METHOD 01/09/2025 9:14 PM [facility] Bilirubin, Total 1.1 0.2 - 1.2 mg/dL LAB CHEMISTRY METHOD 01/09/2025 9:14 PM [facility] Blood VENOUS LINE / Unknown Venipuncture / Unknown 01/09/2025 8:43 PM MDT 01/09/2025 8:46 PM MDT Demian Otero NP LAB BLOOD ORDERABLES Final Result [facility] [address] [address], [facility] [phone] * (ABNORMAL) CBC with Differential (01/09/2025 8:43 PM MDT) Only the most recent of2 resultswithin the time period is included. WBC 6.99 3.50 - 11.50 K/uL LAB HEMATOLOGY METHOD 01/09/2025 8:52 PM [facility] RBC 6.28(H) 4.30 - 6.10 M/uL LAB HEMATOLOGY METHOD 01/09/2025 8:52 PM [facility] Hemoglobin 18.1(H) 14.0 - 18.0 g/dL LAB HEMATOLOGY METHOD 01/09/2025 8:52 PM [facility] Hematocrit 53.6 40.0 - 54.0 % LAB HEMATOLOGY METHOD 01/09/2025 8:52 PM [facility] MCV 85 80 - 102 fL LAB HEMATOLOGY METHOD 01/09/2025 8:52 PM [facility] MCH 28.8 26.0 - 36.0 pg LAB HEMATOLOGY METHOD 01/09/2025 8:52 PM [facility] MCHC 33.8 30.0 - 37.0 g/dL LAB HEMATOLOGY METHOD 01/09/2025 8:52 PM [facility] RDW Coefficient of Variation 13.7 10.0 - 15.5 % LAB HEMATOLOGY METHOD 01/09/2025 8:52 PM [facility] Platelet Count 244 150 - 400 K/uL LAB HEMATOLOGY METHOD 01/09/2025 8:52 PM [facility] MPV 9.7 8.6 - 12.3 fL LAB HEMATOLOGY METHOD 01/09/2025 8:52 PM [facility] Nucleated RBC, Percent 0.0 <=0.0 /100 WBCs LAB HEMATOLOGY METHOD 01/09/2025 8:52 PM [facility] Neutrophil % 59.0 % LAB HEMATOLOGY METHOD 01/09/2025 8:52 PM [facility] Neutrophils, Absolute 4.12 2.00 - 8.00 K/uL LAB HEMATOLOGY METHOD 01/09/2025 8:52 PM [facility] Lymphocyte % 29.8 % LAB HEMATOLOGY METHOD 01/09/2025 8:52 PM [facility] Lymphocytes, Absolute 2.08 0.60 - 5.20 K/UL LAB HEMATOLOGY METHOD 01/09/2025 8:52 PM [facility] Monocyte % 8.7 % LAB HEMATOLOGY METHOD 01/09/2025 8:52 PM [facility] Monocytes, Absolute 0.61 0.00 - 1.00 K/uL LAB HEMATOLOGY METHOD 01/09/2025 8:52 PM [facility] Eosinophil % 1.0 % LAB HEMATOLOGY METHOD 01/09/2025 8:52 PM [facility] Eosinophils, Absolute 0.07 0.00 - 0.80 K/uL LAB HEMATOLOGY METHOD 01/09/2025 8:52 PM [facility] Basophil % 1.1 % LAB HEMATOLOGY METHOD 01/09/2025 8:52 PM [facility] Basophils, Absolute 0.08 0.00 - 0.20 K/UL LAB HEMATOLOGY METHOD 01/09/2025 8:52 PM [facility] Granulocytes, Immature, % 0.4 % LAB HEMATOLOGY METHOD 01/09/2025 8:52 PM [facility] Granulocyte, Immature, Absolute 0.03 0.00 - 0.09 K/UL LAB HEMATOLOGY METHOD 01/09/2025 8:52 PM [facility] Blood VENOUS LINE / Unknown Venipuncture / Unknown 01/09/2025 8:43 PM MDT 01/09/2025 8:46 PM MDT us Demian Otero NP LAB BLOOD ORDERABLES Final Result [facility] [address] [address], [facility] [phone] * 12 Lead EKG (01/09/2025 8:33 PM MDT) Only the most recent of3 resultswithin the time period is included. 01/09/2025 8:33 PM MDT Narrative LM EKG - 01/10/2025 5:36 PM MDT [facility] Test Date: 2025-01-09 20:33:36 Pat Name: MANNY JEREZ Department: Room: ED30 Gender: M Primary Care Provider: [id number] : 1965 Requested By: DEMIAN OTERO Order Number: [id number] Reading MD: RUDY HUANG Measurements Intervals [place] Rate: 102 P: 54 TN: 164 QRS: 23 QRSD: 88 T: 54 QT: 332 QTc: 434 Interpretive Statements Sinus tachycardia Low voltage in the limb lengths Compared to ECG 01/09/2025 14:02:14 The heart rate has increased Electronically Signed On 01-10-2025 17:36:26 MDT by RUDY HUANG Procedure Note Rudy Huang MD - 01/10/2025 [facility] Test Date: 2025-01-09 20:33:36 Pat Name: MANNY JEREZ Department: Room: ED30 Gender: M Primary Care Provider: [id number] : 1965 Requested By: DEMIAN OTERO Order Number: [id number] Reading : RUDY HUANG Measurements Intervals [place] Rate: 102 P: 54 TN: 164 QRS: 23 QRSD: 88 T: 54 [...] ng/L LAB IMMUNOLOGY METHOD 01/09/2025 2:30 PM MDT [facility] Comment: Troponin results should be [...] Biotin greater than 300mg/day including vitamin supplements, pxdg-evmh-dzgq supplements, and biotin supplements. Absolute Troponin Delta LAB IMMUNOLOGY METHOD 01/09/2025 2:30 PM [facility] Comment:Unable to calculate. % Troponin Delta LAB IMMUNOLOGY METHOD 01/09/2025 2:30 PM [facility] Comment:Unable to calculate. Blood Venipuncture / Unknown 01/09/2025 2:03 PM MDT 01/09/2025 2:06 PM MDT Jenny Cool PA-C LAB BLOOD ORDERABL ES Final Result [facility] [address] [address], [facility] [phone] * Troponin, 5th generation, baseline and 1 hour (01/09/2025 12:47 PM MDT) Troponin I, 5th Generation <3 <=53 ng/L ng/L LAB IMMUNOLOGY METHOD 01/09/2025 1:19 PM [facility] Comment: Troponin results should be [...] Biotin greater than 300mg/day including vitamin supplements, ggfr-jqgp-uyzq supplements, and biotin supplements. Blood Venipuncture / Unknown 01/09/2025 12:47 PM MDT 01/09/2025 12:50 PM MDT Jenny Cool PA-C LAB BLOOD ORDERABL ES Final Result [facility] [address] [place] [id number], [facility] [phone] * XR Chest Portable 1 View (01/09/2025 [...] By: Procedure Note Brian Jasso MD - 01/09/2025 CHEST PORTABLE RADIOGRAPH VIEWS: ONE EXAM DATE [...] CT ANGIOGRAPHY CHEST PE (08/31/2018 5:40 PM [facility]) Anatomical Region Laterality Modality vascular Computed Tomogra phy 08/31/2018 5:52 PM [facility] Narrative 08/31/2018 6:10 PM [facility] EXAMINATION: CT ANGIOGRAPHY CHEST PERFORMED: 08/31/2018 17:40 [...] 3:58 PM 11/17/2017 11:31 AM Care Teams Medical Assistant Instructor Relationship Specialty Start Date End Date Erika Ahumada NP [address] [place] [address] PCP - General Family Medicine 08/23/24
--- OUTSIDE RECORDS SUMMARY | 2025-02-06 19:07 | XMS_ITS | Clinical Summary ---
Author Organization [facility] Address [address] [place] [address] Care Team Providers Care Plant Superintendent Name Role Phone Pcp, Generic Provider Primary [...] Comments Blood Pressure 135/65 09/04/2023 12:19 AM [facility] Pulse 88 09/04/2023 12:19 AM [facility] Temperature 36.6 C (97.8 F) 09/04/2023 12:19 AM [facility] Respiratory Rate 19 09/04/2023 12:19 AM [facility] Oxygen Saturation 98% 09/04/2023 12:19 AM MST Inhaled Oxygen Concentration - - Weight 99.8 kg (220 lb) 09/03/2023 9:46 PM [facility] Height 188 cm (6' 2) 09/03/2023 9:46 PM [facility] Body Mass Index 28.25 09/03/2023 9:46 PM [facility] Plan of Treatment Health Maintenance Due Date Last Done Comments CT Colonography 1965 FIT-DNA 1967 FIT 1965 FOBT 1965 Sigmoidoscopy 1965 Td/Tdap 1985 Pneumococcal Vaccine: Peds a nd At-Risk Patients < 65 (1 of 2 - PCV) 1986 Shingles Vaccine (1 of 2) 2017 COVID-19 Vaccine (1 - season) 2024 Influenza Vaccine (#1) 2025 Colonoscopy 08/03/2029 08/03/2019, 07/25, 06/26/2019 Colorectal Cancer Screening 08/03/2029 Hepatitis C Screening Completed 07/23/2019 Procedures Procedure Name Priority Date/Time Associated Diagnosis Comments COLONOSCOPY 08/03/2019 9:41 AM [facility] HEPATITIS C RNA, QUANTITATIVE, PCR Routine 07/23/2019 11:06 AM [facility] Chronic hepatitis C without hepatic coma (CMS/HCC) Gastroesophageal reflux disease, esophagitis presence not specified Acute gastric ulcer without hemorrhage or perforation from Last 3 Months or Most Recently Relevant to Health Maintenance Results * COLONOSCOPY (08/03/2019 9:41 AM MST) 08/03/2019 9:41 AM MST Narrative Transcriptions Nixon Miranda DO - 08/03/2019 9:41 AM MST [facility] Special Procedures - Gastroenterology Patient Name: Manny Jerez Procedure Date: 08/03/2019 9:41 AM Date of : 1965 Admit Type: Outpatient Age: 54 Room: [place] [address] Gender: Male Attending MD: Nixon Miranda DO Specimens Collected?: No Procedure: Colonoscopy Indications: [...] collected. - Difficulty: 1 - Prep quality: [place] 1,1,1 = 3 Findings: Non-bleeding internal hemorrhoids [...] by the physician, the nurse and the software designer. The procedure was verified in the pre-procedure [...] bowel preparation was evaluated using the BBPS ([place] Bowel Preparation Scale) with scores of: Right [...] Miranda DO Procedure Code(s): --- Professional --- 10810, Colonoscopy, flexible; diagnostic, including collection of specimen(s) by brushing or washing, when performed (separate procedure) Diagnosis Code(s): --- Professional --- Z12.11, Encounter for screening for malignant neoplasm of colon K64.8, Other hemorrhoids CPT copyright 2017 [employer]. All rights reserved. The codes documented in this report are preliminary and upon apparel fashion designer review may be revised to meet current [...] RNA quantitative by PCR (07/23/2019 11:06 AM [facility]) Hepatitis C Quantitation See Final Results IU/mL [facility] 1 Test Information: Comment [facility] 1 Comment:The quantitative ran ge of this assay is 15 IU/mL to 100 million IU/mL. Blood Venous blood / Unknown 07/23/2019 11:06 AM [facility] 07/23/2019 Narrative [facility] - 07/25/2019 7:06 PM [facility] Performed at: 01 - [facility] [id number] Bedspread Cutter: Vicenta Davis MD, Phone: [phone] Nixon Miranda DO LAB BLOOD ORDERABLES Fin al Result [facility] [address] [address] [facility] 1 from Last 3 Months or Most Recently Relevant to Health Maintenance [place] [address] [place] [employer] PENDING Care Teams Plant Superintendent Relationship Specialty Start Date End Date Pcp, Generic Provider PCP - General Medicine 09/03/23
--- OUTSIDE RECORDS SUMMARY | 2025-02-06 19:07 | XMS_ITS | Clinical Summary ---
Author Organization [facility] Address [address] [place] [id number] Care Team Providers Care Gut Snatcher Name Role Phone Grisel Morales Primary Care Provider + Medications metFORMIN (Glucophage) 850 MG tablet Take 850 mg by mouth 2 times a day. 04/23/2019 Active atomoxetine (Strattera) 18 MG capsule Take 18 mg by mouth daily. 05/26/2019 Active lamoTRIgine (LaMICtal) 100 MG tablet Take 100 mg by mouth daily. 05/15/2019 Active mirtazapine (Remeron) 15 MG tablet Take 15 mg by mouth nightly. 04/23/2019 Active OLANZapine (ZyPREXA) 10 MG tablet TAKE 1/2 TABLET PO AT BEDTIME AND 1/2 TABLET WHEN WAKES UP IN THE MIDDLE OF THE NIGHT 05/26/2019 Active omeprazole (PriLOSEC) [address] capsule SMARTSI Capsule(s) By Mouth Daily PRN 07/11/2019 Active Na Sulfate-K Sulfate-Mg Sulf (Suprep) 17.5-3.13-1.6 GM/177ML solution Indications: Per Doctor's Instruction. Use as directed 11/06/2019 Active Social History Tobacco Use Types Packs/Day Years Used Date Smoking Tobacco: Never Assessed [facility] Housing Answer Date Recorded Living Situation Not on file 07/07/2023 Housing Problems Not on file 07/07/2023 [facility] Safety Answer Date Recorded Threatened Not on file 07/07/2023 Insulted Not on file 07/07/2023 Physically Hurt Not on file 07/07/2023 Scream Not on file 07/07/2023 Sex and Gender Information Value Date Recorded Sex Assigned at Not on file Legal Sex Male 1:09 PM EST Gender Identity Not on file Sexual Orientation Not on file Plan of Treatment Not on file Care Teams Gut Snatcher Relationship Specialty Start Date End Date Grisel Morales [address] [place] [address] [address] [place] [address] PCP - General Nurse Practitioner 06/26/19
--- NOTE | 2025-02-06 19:21 | PC.NURSE ---
Received report from RAMU Martinez for cont. of care. Pt AOx4 lying on stretcher on cont. cardiac and pulse oximeter monitoring. Pt states he feels ill, and weak. Refer to MAR for medication administration.
[2025-02-06] MEDS: VANCOMYCIN 1,250 MG/NS 250 ML 1,250 MG/250 ML BAG 166.67 MG IVPB ×2 (19:29→21:06)
[2025-02-06 19:44] LABS: Cannabinoid Screen Urine Positive (Negative)
[2025-02-06] MEDS: SODIUM CHLORIDE 0.9% IV 1,000 ML 125 ML IV CONT (21:06)
--- NOTE | 2025-02-06 21:35 | ADMGEN ---
This patient, Manny Jerez, was admitted to Medical Room 258-. Patient/family oriented to hospital policies and general routines including ID bracelet, bed and alarms, visiting hours, pain management, procedures, bathroom and other care routines, personal items, smoking policy, room service/diet, and visiting hours. Information on how to activate the Rapid Response Team has been discussed. Patient/Family are encouraged to report perceived risks to care and to ask questions if they do not understand what they are told or what they should do.
[2025-02-07] VITALS (17 sets, daily range): BP systolic 94–125; BP diastolic 49–78; PULSE 58–110; RESP 16–18; TEMP 36.3–36.5; O2SAT 90–99
[2025-02-07 05:42] LABS: Estimated CRCL calculation 68 ml/min; Estimated Glomerular Filt Rate 60
[2025-02-07 06:13] LABS: Hematocrit 45.0 % (42.0-52.0); Hemoglobin 14.4 g/dL (14.0-18.0); Immature Granulocyte Percent A 0.4 % (0-0.5); Lymphocytes Absolute Auto 1.69 K/mm3 (0.9-3.2); Mean Corpuscular HGB Conc 32.0 g/dl (32-36); Mean Corpuscular Hemoglobin 28.7 pg (26-34); Mean Corpuscular Volume 89.8 fl (80-100); Nucleated Red Blood Cells Absolute Auto 0.000 K/mm3 (0.0-0.012); Nucleated Red Blood Cells Perc 0.0 % (0.0-0.2); Platelet Count Result 181 k/mm3 (150-375); Red Blood Count 5.01 M/mm3 (4.6-6.20); White Blood Count 5.7 K/mm3 (4.5-10.0)
[2025-02-07 06:59] LABS: Anion Gap 8 mmol/L (4-12); Blood Urea Nitrogen 20 mg/dL (9-20); Calcium 8.2 mg/dL (8.4-10.2); Carbon Dioxide 21 mmol/L (22-30); Chloride 108 mmol/L (98-107); Glucose 96 mg/dL (65-110); Potassium 3.7 mmol/L (3.4-5.0); Sodium 137 mmol/L (137-145)
[2025-02-07 07:09] LABS: Magnesium 1.7 mg/dL (1.6-2.3)
--- NOTE | 2025-02-07 08:53 | P.HP_ITS ---
H&P: HPI History of Present Illness Date/Time: 02/07/25 08:53 Chief Complaint: Dizziness Narrative: Patient is a 59-year-old male who presents to the ER with low blood pressure and dizziness. He reports he was driving earlier today and started ?feeling like crap so he pulled into a rest area and called 911. Patient reports he was in the ER a couple of days ago for the same symptoms but left AMA. He reports he has been outside some today but has tried to drink water so he is not sure if he is dehydrated. Pt denies any recent falls but reports after he felt dizzy today he believes he lost consciousness temporarily. He denies chest pain, shortness a breath, recent fevers. Pt reports he has a history of diabetes and GERD. Review of Systems Review of Systems: - CONSTITUTIONAL: Denies weight loss, fe artemio and chills. - HEENT: Denies changes in vision and he aring - RESPIRATORY: Denies SOB and cough. - CV: Denies palpitations and CP. - GI: Denies abdominal pain, nausea, vom iting and diarrhea. - : Denies dysuria and urinary frequen cy. - MSK: Denies myalgia and joint pain. - SKIN: Denies rash and pruritus. - NEUROLOGICAL: Denies headache and sync ope.see hpi - PSYCHIATRIC: Denies recent changes in mood. Denies anxiety and depression. [facility] Family History Family History (Updated 02/06/25 @ 21:43 by Jenny Meza RN) Other Unknown family medical history Social History Social History Smoking packs per day: 0.5 Smoking cigarettes per day: 10.0 Smoking status: Current every day smoker Tobacco type: cigarettes Alcohol intake: never Substance use: current Substance use type: marijuana Other substance usage details: every other day Do You Feel Safe in your Home?: Yes Lack of Transportation: No Lack of Food: Never True Current Housing: I Have Housing Concerned About Future Housing: No Difficulty Paying Gas/Electric Bills: No Difficulty Paying for Meds: No Currently Unemployed: No Education: High School Diploma/GED Difficulty w/ Childcare or Family Care: No Spiritual care concerns: No Meds Home Medications and Allergies Home Medications ?Medication ?Instructions ?Recorded ?Confirmed ?Type dapagliflozin propaned 5 1 tablet PO BID 02/06/25 02/06/25 History mg-metformin ER 1,000 mg tablet, ext rel 24hr (Xigduo XR) insulin glargine 100 unit/mL (3 25 unit subcut BID 02/06/25 02/06/25 History mL) subcutaneous pen (Lantus Solostar U-100 Insulin) lisinopril 20 1 tablet PO DAILY 02/06/25 02/06/25 History mg-hydrochlorothiazide 25 mg tablet tamsulosin 0.4 mg capsule 0.4 mg PO HS 02/06/25 02/06/25 History Allergies Allergy/AdvReac Type Severity Reaction Status Date / Time No Known Allergies Allergy Verified 02/06/25 18:25 Vital Signs Vital Signs - 24 hr 02/06/25 17:04 02/06/25 17:16 02/06/25 17:20 Temperature 97.6 F Pulse Rate 95 98 94 Respiratory Rate 19 16 Blood Pressure 75/48 L 80/47 L Pulse Oximetry 92 Oxygen Delivery Oxygen Flow Rate 02/06/25 17:29 02/06/25 17:30 02/06/25 17:31 Temperature Pulse Rate 92 95 94 Respiratory Rate 30 H 22 H 20 Blood Pressure 76/43 L Pulse Oximetry 92 93 95 Oxygen Delivery Oxygen Flow Rate 02/06/25 17:36 02/06/25 17:44 02/06/25 17:45 Temperature Pulse Rate 91 86 86 Respiratory Rate 22 H 27 H 19 Blood Pressure 82/52 L Pulse Oximetry 92 93 93 Oxygen Delivery Oxygen Flow Rate 02/06/25 17:46 02/06/25 17:55 02/06/25 17:56 Temperature Pulse Rate 84 91 86 Respiratory Rate 21 H 19 18 Blood Pressure 86/50 L 88/54 L 87/54 L Pulse Oximetry 93 95 94 Oxygen Delivery Oxygen Flow Rate 02/06/25 18:00 02/06/25 18:01 02/06/25 18:06 Temperature Pulse Rate 86 84 86 Respiratory Rate 17 15 17 Blood Pressure 89/53 L 89/58 L Pulse Oximetry 97 97 98 Oxygen Delivery Oxygen Flow Rate 02/06/25 18:11 02/06/25 18:15 02/06/25 18:16 Temperature Pulse Rate 93 92 85 Respiratory Rate 19 17 17 Blood Pressure 98/63 L 98/60 L Pulse Oximetry 98 Oxygen Delivery Oxygen Flow Rate 02/06/25 18:21 02/06/25 18:26 02/06/25 18:27 Temperature Pulse Rate 87 85 85 Respiratory Rate 19 18 19 Blood Pressure 98/63 L 102/62 Pulse Oximetry Oxygen Delivery Oxygen Flow Rate 02/06/25 18:30 02/06/25 18:31 02/06/25 18:32 Temperature Pulse Rate 84 83 93 Respiratory Rate 17 15 16 Blood Pressure 108/62 Pulse Oximetry Oxygen Delivery Oxygen Flow Rate 02/06/25 18:59 02/06/25 19:00 02/06/25 19:01 Temperature Pulse Rate 86 86 87 Respiratory Rate 21 H 18 17 Blood Pressure 100/60 98/64 L Pulse Oximetry 96 95 94 Oxygen Delivery Oxygen Flow Rate 02/06/25 19:31 02/06/25 19:44 02/06/25 21:45 Temperature 97.9 F 97.6 F Pulse Rate 89 76 Respiratory Rate 15 20 Blood Pressure 105/71 104/55 L Pulse Oximetry 95 96 97 Oxygen Delivery Nasal Cannula Oxygen Flow Rate 2 02/06/25 21:45 02/06/25 21:47 02/06/25 21:49 Temperature Pulse Rate 76 87 Respiratory Rate Blood Pressure 109/55 L 110/70 Pulse Oximetry 96 Oxygen Delivery Nasal Cannula Oxygen Flow Rate 1 02/06/25 21:51 02/06/25 22:21 02/07/25 00:00 Temperature Pulse Rate 79 91 70 Respiratory Rate Blood Pressure 86/67 L Pulse Oximetry Oxygen Delivery Oxygen Flow Rate 02/07/25 04:00 02/07/25 04:28 02/07/25 08:10 Temperature 97.4 F L Pulse Rate 71 60 Respiratory Rate 16 Blood Pressure 94/49 L Pulse Oximetry 90 95 Oxygen Delivery Room Air Oxygen Flow Rate Exam Narrative: GENERAL: Ill appearing, well-nourished, in no acute distress. HEAD: Normocephalic, atraumatic. NECK: Supple. No adenopathy, no masses. + pain at base of skull. RESPIRATORY: Airway patent, respirations nonlabored. L side crackles, R side clear to auscultation bilaterally. No rales, rhonchi, wheezing. CARDIOVASCULAR: Irregular rate and rhythm without murmurs, rubs, or gallops. Peripheral pulses 2+ and equal bilaterally. ABDOMINAL: Soft, nontender, nondistended, no hepatosplenomegaly. Normoactive BS. MUSCULOSKELETAL: Moves all extremities. Strength/ROM intact without gross deformities. SKIN: Warm, dry, normal color. No rashes. NEURO: A&O X3. Speech clear. Cranial nerves II-XII intact. No ataxic movements. PSYCHIATRIC: Appropriate mood and affect. Normal interaction. H&P: Results Labs Labs: Short CBC 02/06/25 02/07/25 Range/Units 17:42 04:10 WBC 7.8 5.7 (4.5-10.0) K/mm3 Hgb 15.2 14.4 (14.0-18.0) g/dL Hct 46.2 45.0 (42.0-52.0) % Plt Count 218 181 (150-375) k/mm3 BMP 02/06/25 02/07/25 17:41 04:19 Sodium 135 L 137 Potassium 3.7 3.7 Chloride 103 108 H Carbon Dioxide 21 L 21 L BUN 28 H 20 Creatinine 2.16 H 1.25 Glucose 125 H 96 Calcium 8.8 8.2 L Cardiac Enzymes 02/06/25 Range/Units 17:41 Total Creatine Kinase 309 H (55-170) U/L Liver Function 02/06/25 Range/Units 17:41 Total Bilirubin 1.2 (0.2-1.3) mg/dL AST 157 H (17-59) U/L ALT 219 H (6-50) U/L Alkaline Phosphatase 112 (38-126) U/L Albumin 4.2 (3.5-5.1) g/dL Urine 02/06/25 Range/Units 18:27 Urine Color Yellow (Yellow) Urine Appearance Clear (Clear) Urine pH 6.0 (5.0-9.0) Ur Specific [place] 1.014 (1.001-1.035) Urine Protein Trace (Negative) mg/dL Urine Glucose (UA) 2+ H (Negative) mg/dL Assessment and Plan Assessment and plan (1) Hypotension: Code(s): I95.9 - Hypotension, unspecified Status: Acute (2) Abnormal LFTs: Code(s): R79.89 - Other specified abnormal findings of blood chemistry Status: Acute (3) RAUL (acute kidney injury): Code(s): N17.9 - Acute kidney failure, unspecified Status: Acute Plan Patient is a 59-year-old male who presents to the ER with low blood pressure and dizziness. He reports he was driving earlier today and started ?feeling like crap so he pulled into a rest area and called 911. Patient reports he was in the ER a couple of days ago for the same symptoms but left AMA. He reports he has been outside some today but has tried to drink water so he is not sure if he is dehydrated. Pt denies any recent falls but reports after he felt dizzy today he believes he lost consciousness temporarily. He denies chest pain, shortness a breath, recent fevers. Pt reports he has a history of diabetes and GERD. He reports he last took 25 units of Lantus this morning. In the ED his blood pressure was 75/48 afebrile. He received IV fluid in the ER Laboratory studies showed WBC of 7.8 hemoglobin of 15.2 platelet of 218 sodium 135 potassium 43.7 chloride 103 bicarbonate 21 BUN 28 creatinine 2.1 blood glucose 125. Beta hydroxybutyrate was 0.27 TSH is 0.579 CRP less than 0.5 LFTs with AST 157 ALT 219 total bilirubin of 1.2 alk phosphatase 112 without alcohol less than 10. Urinalysis was negative for UTI. Patient received vancomycin and cefepime empirically. CT chest abdomen pelvis negative for any acute infection or any abnormality except for bilateral renal cyst. Lactic acid was 2.0. Dehydration Hypotension no signs of infection noted. Will check procalcitonin. Monitor off antibiotics Type 2 diabetes on insulin at home. Check A1c on SSI currently UDS positive for amphetamine and cannabinoids Abnormal chest x-ray with cardiomegaly and highly suggestive of cardiac decompensation and pulmonary edema. Will get echocardiogram. Check BNP DVT prophylaxis Lovenox code status: full code
[2025-02-07 09:21] LABS: NT Pro B Type Natriuretic Pept 72 pg/mL (19.9-100)
[2025-02-07 10:10] LABS: Procalcitonin 0.2 ng/mL
[2025-02-07] MEDS: MAGNESIUM SULF 1 GM/D5W 100 ML 1 GM/100 ML BAG IVPB (10:23)
[2025-02-07] MEDS: SODIUM CHLORIDE 0.9% IV 1,000 ML 125 ML IV CONT (10:25)
[2025-02-07 13:44] LABS: Hemoglobin A1C 6.7 % (<5.7)
[2025-02-07] MEDS: TAMSULOSIN HCL 0.4 MG CAPSULE PO (21:00)
[2025-02-07] MEDS: INSULIN GLARGINE (*BKC) 100 UNITS/ML 20 UNITS SUB-Q (21:07)
[2025-02-08] VITALS: PULSE 60
--- NOTE | 2025-02-08 | ECHO_ITS ---
Patient Info Name: Manny Jerez Age: 59 years : 1965 Gender: Male Ht: 74 in Wt: 207 lbs BSA: 2.22 m2 HR: 71 bpm BP: 125 / 71 mmHg Heart Rhythm: Sinus Rhythm Technical Quality: Good Exam Date: 02/08/2025 8:55 AM Patient Status: I Admit Date: 02/06/2025 Exam Type: CA echo doppler color flow Complete two-dimensional, color flow and Doppler transthoracic echocardiogram is performed. Staff Referring Physician: Denisa Grove Elephant Tamer: Vanessa Ramsay Attending Provider: Ethel Clifton Summary 1. Complete two-dimensional, color flow and Doppler transthoracic echocardiogram is performed. 2. Normal left ventricular size with hyperdynamic systolic contractility. 3. Mild nodular thickening of the non coronary aortic valve cusp with small amount of AI, no stenosis. Left Ventricle Left ventricular systolic function is hyperdynamic, estimated at >70. The left ventricular diastolic function is normal. Right Ventricle Right ventricular chamber dimension is normal. Left Atria Left atrial chamber dimension is normal. Right Atria Right atrial chamber dimension is normal. Aortic Valve The aortic valve is trileaflet. There is mild aortic valve sclerosis. There is trace aortic valve regurgitation. Pulmonic Valve The pulmonic valve is normal. Mitral Valve The mitral valve has normal leaflets. Tricuspid Valve The tricuspid valve leaflets are normal. Pericardium/Pleural The pericardium appears normal. Aorta The aortic root size at the sinus of Valsalva is normal. Left Ventricular Outflow Tract Name Value Normal LVOT 2D LVOT Diameter 2.3 cm LVOT Doppler LVOT Peak Velocity 122 cm/s LVOT Peak Gradient 5 mmHg LVOT Mean Gradient 3 mmHg LVOT VTI 30 cm LVOT VTI/AV VTI Ratio 0.6 LVOT Stroke Volume 127 ml LVOT CO 7.4 l/min LVOT CI 3.3 l/min/m2 Pulmonic Valve Name Value Normal RVOT Doppler RVOT Peak Velocity 76 cm/s RVOT Peak Gradient 2 mmHg PV Doppler PV Peak Velocity 115 cm/s PV Peak Gradient 5 mmHg Mitral Valve Name Value Normal MV Diastolic Function MV E Peak Velocity 75 cm/s MV A Peak Velocity 74 cm/s MV E/A 1.0 MV Decel Time (PW) 164 ms Tricuspid Valve Name Value Normal TV Regurgitation Doppler TR Peak Velocity 261 cm/s TR Peak Gradient 27 mmHg Estimated PAP/RSVP RA Pressure 10 mmHg <=5 PA Systolic Pressure 37 mmHg <36 RV Systolic Pressure 37 mmHg <36 Aorta Name Value Normal Ascending Aorta Ao Root Diameter (MM) 4.3 cm Ao Root Diam Index (MM) 2.0 cm/m2 Aortic Valve Name Value Normal AV 2D/MM AV Area (Planimetry) 2.7 cm2 AV Doppler AV Peak Velocity 212 cm/s AV Peak Gradient 14 mmHg AV Mean Gradient 9 mmHg AV VTI 49 cm AV Area (Cont Eq VTI) 2.6 cm2 >=3.0 AV Area (Cont Eq Dhruv) 2.5 cm2 AV DI (Dhruv) 0.57 AV Regurgitation 2D LVOT Area 4.3 cm2 Ventricles Name Value Normal LV Dimensions 2D/MM IVS Diastolic Thickness (2D) 1.3 cm 0.6-1.0 IVS Diastole Thickness (MM) 0.8 cm 0.6-1.0 LVID Diastole (2D) 4.8 cm 4.2-5.8 LVID Diastole (MM) 5.4 cm 4.2-5.8 LVIW Diastolic Thickness (2D) 1.2 cm 0.6-1.0 LVIW Diastolic Thickness (MM) 1.3 cm 0.6-1.0 LVID Systole (2D) 2.9 cm 2.5-4.0 LVID Systole (MM) 3.0 cm 2.5-4.0 LVOT Diameter 2.3 cm LV Mass (2D Cubed) 232.12 g 88.00-224.00 LV Mass Index (2D Cubed) 104 g/m2 49-115 Relative Wall Thickness (2D) 0.51 <=0.42 LV Mass (MM Cubed) 220.63 g 88.00-224.00 LV Mass Index (MM Cubed) 99 g/m2 49-115 Relative Wall Thickness (MM) 0.48 LV Fractional Shortening/Ejection Fraction 2D/MM LV Fractional Shortening (2D) 40 % 25-43 LV Fractional Shortening (MM) 45 % 25-43 LV EF (MM Teichholz) 75 % LV EF (2D Teichholz) 71 % LV Diastolic Volume (4C MOD) 100 ml LV EF (4C MOD) 63 % LV Diastolic Volume (2C MOD) 93 ml LV EF (2C MOD) 57 % LV Diastolic Volume (BP MOD) 96 ml 62-150 LV Diastolic Volume Index (BP MOD) 43 ml/m2 34-74 LV Systolic Volume (BP MOD) 39 ml 21-61 LV Systolic Volume Index (BP MOD) 17 ml/m2 11-31 LV EF (BP MOD) 60 % 52-72 LV Diastolic Length (4C) 9.4 cm LV Systolic Length (4C) 7.8 cm LV Stroke Volume (4C MOD) 63 ml Atria Name Value Normal LA Dimensions LA Dimension (MM) 4.0 cm 3.0-4.0 LA Volume (4C A-L) 72 ml LA Volume (BP A-L) 72 ml RA Dimensions RA Systolic Major Moore Length (4C) 5.2 cm 2.1-2.7 RA Area (4C) 18.1 cm2 <=18.0 Report Signatures
[2025-02-08] MEDS: SODIUM CHLORIDE 0.9% IV 1,000 ML 125 ML IV CONT (00:24)
[2025-02-08 04:00] VITALS: PULSE 68
[2025-02-08 05:57] VITALS: BP 125/71; PULSE 67; RESP 16; TEMP 36.3; O2SAT 94
[2025-02-08 07:11] LABS: Hematocrit 41.7 % (42.0-52.0); Hemoglobin 13.8 g/dL (14.0-18.0); Immature Granulocyte Percent A 0.3 % (0-0.5); Lymphocytes Absolute Auto 1.10 K/mm3 (0.9-3.2); Mean Corpuscular HGB Conc 33.1 g/dl (32-36); Mean Corpuscular Hemoglobin 29.2 pg (26-34); Mean Corpuscular Volume 88.2 fl (80-100); Nucleated Red Blood Cells Absolute Auto 0.000 K/mm3 (0.0-0.012); Nucleated Red Blood Cells Perc 0.0 % (0.0-0.2); Platelet Count Result 162 k/mm3 (150-375); Red Blood Count 4.73 M/mm3 (4.6-6.20); White Blood Count 3.6 K/mm3 (4.5-10.0)
[2025-02-08 07:30] LABS: Alanine Aminotransferase 179 U/L (6-50); Albumin Level 3.2 g/dL (3.5-5.1); Alkaline Phosphatase 94 U/L (38-126); Anion Gap 6 mmol/L (4-12); Aspartate Amino Transferase 152 U/L (17-59); Bilirubin,Total 0.5 mg/dL (0.2-1.3); Blood Urea Nitrogen 15 mg/dL (9-20); Calcium 8.0 mg/dL (8.4-10.2); Carbon Dioxide 22 mmol/L (22-30); Chloride 109 mmol/L (98-107); Estimated CRCL calculation 94 ml/min; Estimated Glomerular Filt Rate > 60; Glucose 88 mg/dL (65-110); Magnesium 1.6 mg/dL (1.6-2.3); Potassium 3.8 mmol/L (3.4-5.0); Sodium 137 mmol/L (137-145); Total Protein 5.9 g/dL (6.3-8.2)
[2025-02-08 08:00] VITALS: PULSE 54
--- NOTE | 2025-02-08 08:08 | P.PNIM_ITS ---
Progress Note: A&P Assessment and Plan (1) Hypotension: Code(s): I95.9 - Hypotension, unspecified Status: Acute (2) Abnormal LFTs: Code(s): R79.89 - Other specified abnormal findings of blood chemistry Status: Acute (3) RAUL (acute kidney injury): Code(s): N17.9 - Acute kidney failure, unspecified Status: Acute Plan Patient is a 59-year-old male who presents to the ER with low blood pressure and dizziness. He reports he was driving earlier today and started ?feeling like crap so he pulled into a rest area and called 911. Patient reports he was in the ER a couple of days ago for the same symptoms but left AMA. He reports he has been outside some today but has tried to drink water so he is not sure if he is dehydrated. Pt denies any recent falls but reports after he felt dizzy today he believes he lost consciousness temporarily. He denies chest pain, shortness a breath, recent fevers. Pt reports he has a history of diabetes and GERD. He reports he last took 25 units of Lantus this morning. In the ED his blood pressure was 75/48 afebrile. He received IV fluid in the ER Laboratory studies showed WBC of 7.8 hemoglobin of 15.2 platelet of 218 sodium 135 potassium 43.7 chloride 103 bicarbonate 21 BUN 28 creatinine 2.1 blood gl ucose 125. Beta hydroxybutyrate was 0.27 TSH is 0.579 CRP less than 0.5 LFTs with AST 157 ALT 219 total bilirubin of 1.2 alk phosphatase 112 without alcohol less than 10. Urinalysis was negative for UTI. Patient received vancomycin and cefepime empirically. CT chest abdomen pelvis negative for any acute infection or any abnormality except for bilateral renal cyst. Lactic acid was 2.0. Dehydration Hypotension no signs of infection noted. Procalcitonin 0.2. Monitor off antibiotics. Will check cortisol level. Echo ordered which is pending. Will stop fluid today and ambulate and see how he does Elevated LFTs likely due to hypotension improving Type 2 diabetes on insulin at home. A1c 6.7 on SSI currently. On Lantus 25 units b.i.d.. Will switch to 20 units bedtime continue to trend blood sugar Substance abuse UDS positive for amphetamine and cannabinoids. Last use of methamphetamine 2 weeks ago per patient Abnormal chest x-ray with cardiomegaly and highly suggestive of cardiac d ecompensation and pulmonary edema. Will get echocardiogram. BNP normal DVT prophylaxis Lovenox code status: full code Subjective Date/time seen: 02/08/25 08:08 Interval history: No overnight events. Does not feel dizzy. Eating and drinking well. No leg swelling. Blood sugar trend reviewed. No chest pain. Was in the the ER due to the same complaints. Review of Systems Review of Systems: All systems reviewed & are unremarkable except as noted in HPI and below Exam Narrative: GENERAL: Ill appearing, well-nourished, in no acute distress. HEAD: Normocephalic, atraumatic. NECK: Supple. No adenopathy, no masses. + pain at base of skull. RESPIRATORY: Airway patent, respirations nonlabored. L side crackles, R side clear to auscultation bilaterally. No rales, rhonchi, wheezing. CARDIOVASCULAR: Irregular rate and rhythm without murmurs, rubs, or gallops. Peripheral pulses 2+ and equal bilaterally. ABDOMINAL: Soft, nontender, nondistended, no hepatosplenomegaly. Normoactive BS. MUSCULOSKELETAL: Moves all extremities. Strength/ROM intact without gross deformities. SKIN: Warm, dry, normal color. No rashes. NEURO: A&O X3. Speech clear. Cranial nerves II-XII intact. No ataxic movements. PSYCHIATRIC: Appropriate mood and affect. Normal interaction. Objective Data Vital Signs Vital Signs: Vital Signs - 24 hr 02/07/25 08:10 02/07/25 10:30 02/07/25 10:34 Temperature Pulse Rate 64 78 Respiratory Rate Blood Pressure 110/64 115/78 Pulse Oximetry 95 Oxygen Delivery Room Air 02/07/25 10:38 02/07/25 11:19 02/07/25 12:00 Temperature Pulse Rate 91 71 Respiratory Rate Blood Pressure 107/67 Pulse Oximetry 93 Oxygen Delivery Room Air 02/07/25 14:00 02/07/25 16:00 02/07/25 20:00 Temperature 97.7 F Pulse Rate 60 76 Respiratory Rate 16 Blood Pressure 104/57 L Pulse Oximetry 99 Oxygen Delivery Room Air 02/07/25 20:00 02/07/25 20:40 02/07/25 21:00 Temperature Pulse Rate 66 58 L Respiratory Rate Blood Pressure 124/71 Pulse Oximetry 96 Oxygen Delivery Room Air 02/07/25 21:00 02/07/25 21:03 02/07/25 21:05 Temperature 97.4 F L Pulse Rate 58 L 80 110 H Respiratory Rate 18 Blood Pressure 124/71 125/75 110/76 Pulse Oximetry 96 Oxygen Delivery 02/08/25 00:00 02/08/25 04:00 02/08/25 05:57 Temperature 97.3 F L Pulse Rate 60 68 67 Respiratory Rate 16 Blood Pressure 125/71 Pulse Oximetry 94 Oxygen Delivery Intake/Output Intake/Output: Intake & Output 02/05/25 02/06/25 02/07/25 02/08/25 23:59 23:59 23:59 23:59 Intake Total 3300 2950 300 Output Total 1000 Balance 3300 1950 300 Meds/Results Medications: Active Medications Generic Name Dose Route Start Last Admin Trade Name Freq PRN Reason Stop Dose Admin Dextrose 12.5 gm 02/07/25 12:38 Dextrose 50% 25 Gm/50 Ml Syringe IV PUSH PRN PRN Hypoglycemia Protocol Glucagon 1 mg 02/07/25 12:38 Glucagon For Inj 1 Mg Vial IM PRN PRN Hypoglycemia Protocol Glucose 15 gm 02/07/25 12:38 Glucose Oral Gel 15 Gm Of Glucse In 37.5 Gm Tube PO PRN PRN Hypoglycemia Protocol Hydrochlorothiazide 25 mg 02/07/25 13:00 02/07/25 15:49 Hydrochlorothiazide 25 Mg Tablet PO Not Given DAILY ILA Sodium Chloride 1,000 mls @ 125 mls/hr 02/06/25 19:40 02/08/25 00:24 Normal Saline Iv IV CONT 125 mls/hr .Q8H ILA Administration Dextrose 1,000 mls @ 100 mls/hr 02/07/25 12:38 Dextrose 5% 1,000 Ml IVPB PRN PRN Hypoglycemia Protocol Insulin Aspart 2 - 5 units 02/07/25 08:00 02/07/25 17:17 Insulin Aspart (*Bkc) 100 Units/Ml SUB-Q Not Given TIDWM ILA Protocol Insulin Aspart 1 - 2 units 02/07/25 21:00 02/07/25 21:08 Insulin Aspart (*Bkc) 100 Units/Ml SUB-Q Not Given HS ILA Protocol Insulin Glargine 20 units 02/07/25 21:00 02/07/25 21:07 Insulin Glargine (*Bkc) 100 Units/Ml SUB-Q 20 units Q12HR ILA Administration Lisinopril 20 mg 02/07/25 13:00 02/07/25 15:49 Lisinopril 20 Mg Tablet PO 03/10/25 12:59 Not Given DAILY ILA Perflutren Lipid Microsphere 0 ml 02/07/25 08:54 Perflutren Lipid Microspheres 1.5 Ml Vial Diluted To 10 Ml Total Volume IV PUSH 02/10/25 08:54 ONCE PRN adequate visualization Protocol Tamsulosin HCl 0.4 mg 02/07/25 21:00 02/07/25 21:00 Tamsulosin Hcl 0.4 Mg Capsule PO 0.4 mg HS ILA Administration Radiology Results: ITS Impressions Chest X-Ray 02/06/25 18:03 IMPRESSION: Cardiomegaly with highly suggestive cardiac decompensation and pulmonary edema. Pneumonitis is not excluded. Head CT 02/06/25 18:51 IMPRESSION: No acute intracranial process. Cervical Spine CT 02/06/25 18:55 IMPRESSION: No acute fracture or traumatic malalignment in the cervical spine. Chest/Abdomen/Pelvis CT 02/06/25 19:00 IMPRESSION: CHEST: 1. No acute cardiopulmonary pathology. ABDOMEN/PELVIS: 1. No evidence of appendicitis, diverticulitis or intestinal obstruction. 2. Bilateral renal cysts. Labs Labs: Laboratory Results - last 24 hr 02/07/25 02/07/25 02/07/25 04:10 04:19 12:14 WBC RBC Hgb Hct MCV MCH MCHC RDW Plt Count MPV Immature Gran % (Auto) Neut % (Auto) Lymph % (Auto) [place] % (Auto) Eos % (Auto) Baso % (Auto) Lymph # (Auto) [place] # (Auto) Eos # (Auto) Baso # (Auto) Abs Immat Gran (auto) Absolute Neuts (auto) Absolute Nucleated RBC Nucleated RBC % Sodium Potassium Chloride Carbon Dioxide Anion Gap BUN Creatinine Estim Creat Clear Calc Estimated GFR Glucose POC Capillary Glucose 133 H Hemoglobin A1c 6.7 H Calcium Magnesium Total Bilirubin AST ALT Alkaline Phosphatase NT-Pro-B Natriuret Pep 72 Total Protein Albumin Procalcitonin 0.2 Vancomycin Trough 02/07/25 02/07/25 02/08/25 17:13 21:07 07:06 WBC 3.6 L RBC 4.73 Hgb 13.8 L Hct 41.7 L MCV 88.2 MCH 29.2 MCHC 33.1 RDW 14.3 Plt Count 162 MPV 9.7 Immature Gran % (Auto) 0.3 Neut % (Auto) 54.0 Lymph % (Auto) 30.6 [place] % (Auto) 12.8 H Eos % (Auto) 1.7 Baso % (Auto) 0.6 Lymph # (Auto) 1.10 [place] # (Auto) 0.5 Eos # (Auto) 0.1 Baso # (Auto) 0.0 Abs Immat Gran (auto) 0.01 Absolute Neuts (auto) 1.9 Absolute Nucleated RBC 0.000 Nucleated RBC % 0.0 Sodium 137 Potassium 3.8 Chloride 109 H Carbon Dioxide 22 Anion Gap 6 BUN 15 D Creatinine 0.88 Estim Creat Clear Calc 94 Estimated GFR > 60 Glucose 88 POC Capillary Glucose 145 H 114 H Hemoglobin A1c Calcium 8.0 L Magnesium 1.6 Total Bilirubin 0.5 AST 152 H ALT 179 H Alkaline Phosphatase 94 NT-Pro-B Natriuret Pep Total Protein 5.9 L Albumin 3.2 L Procalcitonin Vancomycin Trough < 5.0 L
--- NOTE | 2025-02-08 16:05 | PM.DS ---
DS: Admitting Diagnosis Discharge Date 02/08/25 Admitting Diagnosis dizziness DS: Discharge Diagnosis Discharge Diagnosis (1) Hypotension: Code(s): I95.9 - Hypotension, unspecified Status: Acute (2) Abnormal LFTs: Code(s): R79.89 - Other specified abnormal findings of blood chemistry Status: Acute (3) RAUL (acute kidney injury): Code(s): N17.9 - Acute kidney failure, unspecified Status: Acute DS: Summary Hospital Course Hospital Course: Patient is a 59-year-old male who presents to the ER with low blood pressure and dizziness. He reports he was driving earlier today and started ?feeling like crap so he pulled into a rest area and called 911. Patient reports he was in the ER a couple of days ago for the same symptoms but left AMA. He reports he has been outside some today but has tried to drink water so he is not sure if he is dehydrated. Pt denies any recent falls but reports after he felt dizzy today he believes he lost consciousness temporarily. He denies chest pain, shortness a breath, recent fevers. Pt reports he has a history of diabetes and GERD. He reports he last took 25 units of Lantus this morning. In the ED his blood pressure was 75/48 afebrile. He received IV fluid in the ER Laboratory studies showed WBC of 7.8 hemoglobin of 15.2 platelet of 218 sodium 135 potassium 43.7 chloride 103 bicarbonate 21 BUN 28 creatinine 2.1 blood glucose 125. Beta hydroxybutyrate was 0.27 TSH is 0.579 CRP less than 0.5 LFTs with AST 157 ALT 219 total bilirubin of 1.2 alk phosphatase 112 without alcohol less than 10. Urinalysis was negative for UTI. Patient received vancomycin and cefepime empirically. CT chest abdomen pelvis negative for any acute infection or any abnormality except for bilateral renal cyst. Lactic acid was 2.0. Dehydration improved with iv hydratoin. patient able to hydrate himself. Hypotension no signs of infection noted. Procalcitonin 0.2. Monitor off antibiotics. cortisol level was good. echo done which was unremarakble.patient did not want to wait until echo is read and hence he left against medical advise prior to the result. Elevated LFTs likely due to hypotension improving Type 2 diabetes on insulin at home. A1c 6.7 on SSI currently. On Lantus 25 units b.i.d.. Will switch to 20 units bedtime continue to trend blood sugar. fu as op basis. Substance abuse UDS positive for amphetamine and cannabinoids. Last use of methamphetamine 2 weeks ago per patient Abnormal chest x-ray with cardiomegaly and highly suggestive of cardiac decompensation and pulmonary edema. echo as above with normal ef and no sig valvular abnormality. DVT prophylaxis Lovenox code status: full code Time Spent with Patient Time attestation: Total time spent providing and/or coordinating discharge services:35 mins Exam Narrative: GENERAL: Ill appearing, well-nourished, in no acute distress. HEAD: Normocephalic, atraumatic. NECK: Supple. No adenopathy, no masses. + pain at base of skull. RESPIRATORY: Airway patent, respirations nonlabored. L side crackles, R side clear to auscultation bilaterally. No rales, rhonchi, wheezing. CARDIOVASCULAR: Irregular rate and rhythm without murmurs, rubs, or gallops. Peripheral pulses 2+ and equal bilaterally. ABDOMINAL: Soft, nontender, nondistended, no hepatosplenomegaly. Normoactive BS. MUSCULOSKELETAL: Moves all extremities. Strength/ROM intact without gross deformities. SKIN: Warm, dry, normal color. No rashes. NEURO: A&O X3. Speech clear. Cranial nerves II-XII intact. No ataxic movements. PSYCHIATRIC: Appropriate mood and affect. Normal interaction. DS: Data Data Completed and Pending Completed studies during hospitalization: Exam Type: CA echo doppler color flow Complete two-dimensional, color flow and Doppler transthoracic echocardiogram is performed. Staff Referring Physician: Denisa Grove History Teacher: Vanessa Ramsay Attending Provider: Ethel Clifton Summary 1. Complete two-dimensional, color flow and Doppler transthoracic echocardiogram is performed. 2. Normal left ventricular size with hyperdynamic systolic contractility. 3. Mild nodular thickening of the non coronary aortic valve cusp with small amount of AI, no stenosis. Left Ventricle Left ventricular systolic function is hyperdynamic, estimated at >70. The left ventricular diastolic function is normal. Right Ventricle Right ventricular chamber dimension is normal. Left Atria Left atrial chamber dimension is normal. Right Atria Right atrial chamber dimension is normal. Aortic Valve The aortic valve is trileaflet. There is mild aortic valve sclerosis. There is trace aortic valve regurgitation. Pulmonic Valve The pulmonic valve is normal. Mitral Valve The mitral valve has normal leaflets. Tricuspid Valve The tricuspid valve leaflets are normal. Pericardium/Pleural The pericardium appears normal. Aorta The aortic root size at the sinus of Valsalva is normal. Labs on day of discharge: Labs from last 24 hours 02/08/25 02/08/25 02/08/25 12:21 08:20 07:06 WBC 3.6 L RBC 4.73 Hgb 13.8 L Hct 41.7 L MCV 88.2 MCH 29.2 MCHC 33.1 RDW 14.3 Plt Count 162 MPV 9.7 Immature Gran % (Auto) 0.3 Neut % (Auto) 54.0 Lymph % (Auto) 30.6 Mcdonald % (Auto) 12.8 H Eos % (Auto) 1.7 Baso % (Auto) 0.6 Lymph # (Auto) 1.10 Mcdonald # (Auto) 0.5 Eos # (Auto) 0.1 Baso # (Auto) 0.0 Abs Immat Gran (auto) 0.01 Absolute Neuts (auto) 1.9 Absolute Nucleated RBC 0.000 Nucleated RBC % 0.0 Sodium 137 Potassium 3.8 Chloride 109 H Carbon Dioxide 22 Anion Gap 6 BUN 15 D Creatinine 0.88 Estim Creat Clear Calc 94 Estimated GFR > 60 Glucose 88 POC Capillary Glucose 90 103 Calcium 8.0 L Magnesium 1.6 Total Bilirubin 0.5 AST 152 H ALT 179 H Alkaline Phosphatase 94 Total Protein 5.9 L Albumin 3.2 L Random Cortisol 17.30 Vancomycin Trough < 5.0 L 02/07/25 02/07/25 21:07 17:13 WBC RBC Hgb Hct MCV MCH MCHC RDW Plt Count MPV Immature Gran % (Auto) Neut % (Auto) Lymph % (Auto) Mcdonald % (Auto) Eos % (Auto) Baso % (Auto) Lymph # (Auto) Mcdonald # (Auto) Eos # (Auto) Baso # (Auto) Abs Immat Gran (auto) Absolute Neuts (auto) Absolute Nucleated RBC Nucleated RBC % Sodium Potassium Chloride Carbon Dioxide Anion Gap BUN Creatinine Estim Creat Clear Calc Estimated GFR Glucose POC Capillary Glucose 114 H 145 H Calcium Magnesium Total Bilirubin AST ALT Alkaline Phosphatase Total Protein Albumin Random Cortisol Vancomycin Trough Imaging Radiologist's impression: ITS Impressions Chest X-Ray 02/06/25 18:03 IMPRESSION: Cardiomegaly with highly suggestive cardiac decompensation and pulmonary edema. Pneumonitis is not excluded. Head CT 02/06/25 18:51 IMPRESSION: No acute intracranial process. Cervical Spine CT 02/06/25 18:55 IMPRESSION: No acute fracture or traumatic malalignment in the cervical spine. Chest/Abdomen/Pelvis CT 02/06/25 19:00 IMPRESSION: CHEST: 1. No acute cardiopulmonary pathology. ABDOMEN/PELVIS: 1. No evidence of appendicitis, diverticulitis or intestinal obstruction. 2. Bilateral renal cysts. Discharge Plan Discharge Attending physician on discharge: Danilo Haskins Discharging Clinician: Danilo Haskins Patient Disposition: Left Against Medical Advice Patient Language: [place] Discharge Medications: No Action dapaglifloz propaned-metformin [Xigduo XR] 5-1,000 mg tablet, IR - ER, biphasic 24hr 1 tablet PO BID insulin glargine [Lantus Solostar U-100 Insulin] 100 unit/mL (3 mL) insulin pen 25 unit SUBCUT BID lisinopril-hydrochlorothiazide 20-25 mg tablet 1 tablet PO DAILY tamsulosin 0.4 mg capsule 0.4 mg PO HS Date of admission: 02/06/25 19:39 Primary Care Provider: PHYSICIAN NOT ON STAFF,NONSTAFF Admitting Provider: Ethel Clifton Attending physician on admission: Ethel Clifton Condition: Stable
== END 2025-02-08 13:50 | disposition left against medical advice (07) | DRG 207 ==
LOC: ANHED 19:05 → ANH3MEDSUR 20:37 → ANH2MED 20:44
PROVIDERS: Admitting Provider General Practice; Emergency Provider Registered Nurse; Visit Provider Internal Medicine
DX: I95.9 Hypotension, unspecified (principal); N17.9 Acute kidney failure, unspecified; E86.0 Dehydration; E11.9 Type 2 diabetes mellitus without complications; K21.9 Gastro-esophageal reflux disease without esophagitis; F17.210 Nicotine dependence, cigarettes, uncomplicated; F15.10 Other stimulant abuse, uncomplicated; F12.10 Cannabis abuse, uncomplicated; Z79.4 Long term (current) use of insulin
CPT/HCPCS: 36415; 70450; 71045; 71260; 72125; 74177; 80048; 80053; 80202; 80307; 81001; 82010; 82077; 82533; 82550; 82565; 82948; 83036; 83605; 83735; 83880; 84145; 84443; 85025; 85610; 85730; 86140; 87040; 93005; 93306; 96361; 96365; 96366; 96367; 99285; A9270; J0692; J1815; J3373; J3475; J7030; Q9967